=== PATIENT | male | born 1960 | race Hispanic/Latino ===

== ENCOUNTER 2018-02-18 09:45 | Outpatient (CLI) | payer OTHER | END 2018-02-18 09:46 | disposition home or self-care (01) | LOC: BICRAD 09:45 | PROVIDERS: ATTEND Internal Medicine | DX: R68.81 Early satiety (principal) | CPT/HCPCS: 74018 ==

== ENCOUNTER 2018-02-21 11:47 | Inpatient (IN) | payer SELFPAY ==
--- NOTE | 2018-02-21 12:16 | RAD ---
PORTABLE UPRIGHT FRONTAL CHEST RADIOGRAPH: Date: 02/21/18 COMPARISON: None. HISTORY: Chest pain and abdominal pain. FINDINGS: Lungs are clear. Heart and mediastinal contours unremarkable. Imaged paranasal sinuses/mastoid air ce lls are well aerated. IMPRESSION: No acute findings. POS: [facility]
[2018-02-21 12:29] LABS: #Basophils 0.1 thou/uL (0.0-0.2); #Eosinphils 0.1 thou/uL (0.0-0.7); #Lymphocytes 2.5 thou/uL (1.20-3.40); #Monocytes 0.7 thou/uL (0.11-0.59); #Neutrophils 5.3 thou/uL (1.40-6.50); %Basophils 0.7 % (0.0-1.0); %Eosinophils 1.6 % (0.0-10.0); %Lymphocytes 28.7 % (21.0-51.0); %Monocytes 8.2 % (0.0-10.0); %Neutrophils 60.8 % (42.0-75.0); Hemoglobin 12.2 g/dL (14.0-18.0); Mean Corpuscular HGB CONC 32.1 g/dL (32.0-36.0); Mean Corpuscular Hemoglobin 26.9 pg (27.0-31.0); Mean Corpuscular Volume 83.6 fL (78.0-98.0); Mean Platelet Volume 8.3 fL (7.4-10.4); Platelet Count 294 thou/uL (130-400); RBC Distribution Width 13.3 % (11.5-14.5); Red Blood Cell (RBC) Count 4.56 mill/uL (4.70-6.10); White Blood Cell (WBC) Count 8.8 thou/uL (4.8-10.8)
[2018-02-21] MEDS ORDERED: ISOVUE-370 76%-LOCM 1 ML ONE (12:44)
[2018-02-21 12:50] LABS: ALT (SGPT) 54 U/L (8-55); AST (SGOT) 57 U/L (5-34); Albumin 3.8 g/dL (3.5-5.0); Alkaline Phosphatase 207 U/L (40-150); Anion Gap 12 mmol/L (10-20); BUN (Urea Nitrogen) 18 mg/dL (8.4-25.7); Bilirubin, Total 0.4 mg/dL (0.2-1.2); CK (CPK) 116 U/L (30-200); Calc. Creatinine Clearance 0 mL/min (70-130); Carbon Dioxide 25 mmol/L (22-29); Chloride 105 mmol/L (98-107); Estimated GFR-MDRD 90; Globulin 3.4 g/dL (2.4-3.5); Glucose 84 mg/dL (70-105); Lipase 14 U/L (8-78); Potassium 4.2 mmol/L (3.5-5.1); Protein, Total 7.2 g/dL (6.0-8.3); Sodium 138 mmol/L (136-145)
[2018-02-21 12:58] LABS: CKMB 0.4 ng/mL (0-6.6); Troponin I Less than 0.010 ng/mL (< 0.028)
[2018-02-21] MEDS ORDERED: Fentanyl 100 MCG/2 ML VIAL ONE (13:10)
--- NOTE | 2018-02-21 14:42 | ULT ---
GALLBLADDER ULTRASOUND: History: Chest pain, abdominal pain. Comparison: None. Technique: Utilizing a multihertz transducer, sonographic imaging of the right upper quadrant is perf ormed in longitudinal and transverse plane. FINDINGS: Suboptimal evaluation of the pancreas. Heterogeneity of the left hepatic parenchyma may be due to hepatic steatosis or hepatocellular diseas e. Subsequent limited evaluation of the hepatic parenchyma for masses or intrahepatic biliary dilatat ion. Nevertheless, there do appear to be multiple tympanic masses. Shoe Sprayer left lobe hepatic m ass measures 5.3 x 12.3 x 3.1 cm. A mass in the right hepatic lobe measures 6.4 x 4.3 x 4.5 cm. Right hepatic lobe measures 18.2 cm. Main portal vein is patent with appropriate direction of flow. Suboptimal evaluation of common bile duct. No sonographic evidence of cholelithiasis, gallbladder wall thickening or pericholecystic fluid. Nega tive Alarcon's sign. Limited evaluation of the right kidney. Grossly, no hydronephrosis. There is right renal cortical thi nning. Right kidney measures 4.9 x 6.1 x 7.8 cm. IMPRESSION: Multiple hepatic masses. Better interrogation with a liver mass protocol CT is recommended. POS: [facility]
--- NOTE | 2018-02-21 15:28 | CT ---
ABDOMEN CT WITH CONTRAST PELVIC CT WITH CONTRAST: Date: 02/21/18 HISTORY: Abdominal pain. COMPARISON: None. TECHNIQUE: Abdomen and pelvic CT performed with IV contrast. Enteric contrast not administered. Coronal reformat yoly images are submitted for interpretation. FINDINGS: ABDOMEN CT: Lung bases do not demonstrate any masses. Heart size is normal. Visualized aorta is unremarkable. Portal vein is patent. The spleen, pancreas, and adrenal glands are unremarkable. Symmetric enhancement of the kidneys. Bilaterally, no obstructive uropathy. There are multiple necrotic masses throughout the hepatic parenchyma. Left hepatic lobe mass measurin g 4.1 x 4.5 cm and a right hepatic lobe mass measuring 5.2 x 3.7 cm noted. Additional multifocal mass es are identified. There is no gastrohepatic, retrocrural, or periportal lymphadenopathy. Limited evaluation of the alimentary canal due to lack of oral contrast. Gastric mucosa, duodenum, an d small bowel loops are unremarkable. Ileocecal junction is normal. Appendix is difficult to apprecia te. No inflammation of the cecal apex. There is circumferential mucosal thickening involving the mid transverse colon. There is mild induration of the adjacent fat. There are enlarged adjacent mesenteri c lymph nodes. Physician President lymph node in the mesentery measures 0.8 x 0[address]: No mass, lymphadenopathy, free air, or free fluid. No lytic or blastic lesions. IMPRESSION: 1. Multifocal hepatic masses, worrisome for metastasis until proven otherwise. 2. 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 The re is induration of the adjacent fat with lymphadenopathy suggestion metastatic disease. POS: [facility]
--- NOTE | 2018-02-21 15:57 | PDOC.FPRHP ---
- History of Present Illness Chief Complaint: Chest pain and stomach pain History of Present Illness: 57 yo M with no medical hx here with complaint of chest pain and stomach pain. Regarding the chest pain he states that it started about 1 day ago. He states that the pain is in the center of his chest and sharp in nature. He denies radiation of the pain. He also denies SOB, nausea/vomiting, headache, and peripheral numbness/tingling. Regarding abdominal pain he notes 1-2 months of diffuse aching without radiation. He denies changes in bowel habit, early satiety, bloody or black stools, constipation, or diarrhea. He denies family history of cancers. He has never been screened for colon cancer. ED Course: In the ED an abdominal CT was completed and read as likely apple core lesion in transverse colon with possible metastatic lesions in the liver. Troponin was negative and EKG was not concerning ACS. - Allergies/Adverse Reactions Allergies Allergy/AdvReac Type Severity Reaction Status Date / Time No Known Allergies Allergy Verified 02/21/18 18:14 - Home Medications Medication Instructions Recorded Confirmed Type No Known [No Known] 02/21/18 02/21/18 History - History PMHx: None PSHx: None FHx: None Social: Denies etoh, tobacco, recreational drug use - Review of Systems General: denies: fever/chills, weight/appetite/sleep changes Eyes: denies: vision changes ENT: denies: nasal congestion, rhinorrhea Respiratory: denies: cough, congestion, shortness of breath Cardiovascular: reports: chest pain (Substernal). denies: edema Gastrointestinal: reports: abdominal pain (epigastric for 1 month duration). denies: nausea, vomiting, diarrhea, constipation Genitourinary: denies: incontinence Skin: denies: rashes, lesions, jaundice Musculoskeletal: denies: pain, tenderness Neurological: denies: numbness, syncope Psychological: denies: anxiety, depression - Vital signs BP: 118/75 HR: 77 RR: 22 Tmax: 98.0 Pox: 95% on RA Wt: 79 kg - Physical Exam Constitutional: NAD, awake, alert and oriented HEENT: PERRLA, grossly normal vision, grossly normal hearing Neck: FROM, trachea midline Chest: no-tender to palpation Heart: RRR, normal S1/S2, no murmurs/rubs/gallops Lungs: CTAB, no respiratory distress, no wheezing Abdomen: soft, bowel sounds present, no masses/distention -Abdomen: diffusely TTP Musculoskeletal: normal structure, normal tone Neurological: no focal deficit, CN II-XII intact Skin: no rash/lesions, good turgor Heme/Lymphatic: no unusual bruising or bleeding Psychiatric: normal mood and affect FMR H&P: Results - Labs Result Diagrams: 02/23/18 04:12 02/23/18 04:12 Lab results: WBC 8.8 thou/uL (4.8-10.8) 02/21/18 12:17 Hgb 12.2 g/dL (14.0-18.0) L 02/21/18 12:17 Hct 38.1 % (42.0-52.0) L 02/21/18 12:17 MCV 83.6 fL (78.0-98.0) 02/21/18 12:17 Plt Count 294 thou/uL (130-400) 02/21/18 12:17 Neutrophils % 60.8 % (42.0-75.0) 02/21/18 12:17 Sodium 138 mmol/L (136-145) 02/21/18 12:17 Potassium 4.2 mmol/L (3.5-5.1) 02/21/18 12:17 Chloride 105 mmol/L (98-107) 02/21/18 12:17 Carbon Dioxide 25 mmol/L (22-29) 02/21/18 12:17 BUN 18 mg/dL (8.4-25.7) 02/21/18 12:17 Creatinine 0.87 mg/dL (0.6-1.3) 02/21/18 12:17 Glucose 84 mg/dL (70-105) 02/21/18 12:17 Calcium 9.0 mg/dL (7.8-10.44) 02/21/18 12:17 Total Bilirubin 0.4 mg/dL (0.2-1.2) 02/21/18 12:17 AST 57 U/L (5-34) H 02/21/18 12:17 ALT 54 U/L (8-55) 02/21/18 12:17 Alkaline Phosphatase 207 U/L (40-150) H 02/21/18 12:17 Creatine Kinase 116 U/L (30-200) 02/21/18 12:17 CK-MB (CK-2) 0.4 ng/mL (0-6.6) 02/21/18 12:17 Serum Total Protein 7.2 g/dL (6.0-8.3) 02/21/18 12:17 Albumin 3.8 g/dL (3.5-5.0) 02/21/18 12:17 Lipase 14 U/L (8-78) 02/21/18 12:17 - EKG Interpretation EKG: NSR. Rate 74. No changes in ST or T wave - Radiology Interpretation CT scan - abdomen Status: report reviewed by me (1. Multifocal hepatic masses, worrisome for metastasis until proven otherwise. 2. 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 The re is induration of the adjacent fat with lymphadenopathy suggestion metastatic disease) US - abdomen Status: report reviewed by me (Multiple hepatic masses. Better interrogation with a liver mass protocol CT is recommended.) FMR H&P: A/P - Problem List (1) Atypical chest pain Current Visit: Yes Status: Resolved Priority: High Code(s): R07.89 - OTHER CHEST PAIN (2) Colonic mass Current Visit: Yes Status: Acute Priority: High Code(s): K63.9 - DISEASE OF INTESTINE, UNSPECIFIED (3) Liver metastasis Current Visit: Yes Status: Acute Priority: High Code(s): C78.7 - SECONDARY MALIG NEOPLASM OF LIVER AND INTRAHEPATIC BILE DUCT (4) Normocytic anemia Current Visit: Yes Status: Acute Priority: Medium Code(s): D64.9 - ANEMIA , UNSPECIFIED - Plan Atypical chest pain - This unlikely to be related to cardiac ischemia and more likely to be referred from abdomen - trend trops x3, repeat EKG - monitor on tele - HEART score 2 Colonic mass - likely to be transverse colon cancer - Will consult GI Hepatic mass - likely mets from primary colon cancer - Consult GI as above Normocytic anemia - likely 2/2 losses from colon cancer - FOBT - trend CBC in am PPx: lovenox Diet NPO at midnight Code Full Dispo: Guarded, pt likely has metastatic disease. Length of stay likely 1-2 pending GI recommendation FMR H&P: Upper Level - Pertinent history 57 yo M with no known pmhx p/w chest and abdominal pains. Regarding the chest pain, he states that it started about 1 day ago. Describes the pain as central and sharp without radiation. No associated SOB, N/V, diaphoresis, or worsening with exertion. Describes abdominal pain as 1-2 months of diffuse aching without radiation. Denies early satiety, bloody or black stools, constipation, or diarrhea. Denies family history of cancer. He has never been screened for colon cancer. In the ED, an abdominal CT was completed and read as likely apple core lesion in the transverse colon with possible metastatic lesions in the liver. Troponin was negative, and EKG had no ST elevations/depression or T wave inversions. - Pertinent findings PE: - Plan Date/Time: 02/21/18 0992 I, Paco Zee MD, have evaluated this patient and agree with findings/plan as outlined by gallery intern resident. Pertinent changes/additions are listed here. 1) Atypical chest pain: obs to telemetry for cardiac monitoring overnight; more likely referred pain from abdomen. Trending trops and r/p EKG in AM. HEART score 2. Risk stratification labs. Consider stress test in AM. Attempt symptomatic relief with PPI or GI cocktail. 2) Colonic mass, suspect transverse colon cancer. GI consulted to obtain tissue biopsy. Will make NPO at midnight. 3) Hepatic mass: likely metastatic disease, LFTs mildly elevated. 4) Normocytic anemia: likely 2/2 chronic blood loss from #2. Monitor CBC. Attending Addendum - Attending Addendum Date/Time: 02/21/18 3251 I personally evaluated the patient and discussed the management with Dr. Zee and Dr. Orr I agree with the History, Examination, Assessment and Plan documented above with any addition or exceptions noted below. 57 yo male with no past medical history admitted for evaluation of colon cancer and rule out ACS. Patient denies symptoms related to colon cancer other than abdominal pain. Chest pain is atypical. Will trend CE and EKG. Consider stress as indicated based on clinical course. Will cancer present rule out other etiologies. Will contact GI for scope and tissue biopsy. CM consulted. Kerline
[2018-02-21] MEDS ORDERED: Nitroglycerin 0.4 MG TAB (25 Tab Bottle) PO PRN (16:24)
[2018-02-21 16:55] LABS: Troponin I Less than 0.010 ng/mL (< 0.028)
[2018-02-21] MEDS ORDERED: Pantoprazole 40 MG VIAL IVP SCH (18:30)
[2018-02-21] MEDS ORDERED: Lidocaine 2% Viscous Solution 10 ML, Aluminum & Magnesium Hydroxide 30 ML SSW SCH (19:15)
[2018-02-21 20:20] LABS: Troponin I Less than 0.010 ng/mL (< 0.028)
[2018-02-21] MEDS ORDERED: GoLYTELY 4,000 ml Bottle PO SCH (21:00)
--- NOTE | 2018-02-22 02:23 | CON ---
DATE OF CONSULTATION: 02/21/2018 HISTORY OF PRESENT ILLNESS: The patient is a 57-year-old gentleman with no significant past medical history, presenting with complaints of chest pain and abdominal pain. He states that he was in his usual state of health until approximately 1 month ago when he started having increased midepi gastric abdominal pain. He states the pain was characterized as sharp, stabbing type pain, intermitt ent, would radiate to the periumbilical region and would reach a severity of 8/10. He did not endors e any clear alleviating or exacerbating factors. However, he did take peppermint oil that was prescr ibed to his daughter with mild relief in his symptoms until the worsening of this abdominal pain alejo magallanes brought him for further evaluation. He also complains of chest pain located in his mid chest als o characterized as sharp in nature without radiation of his pain. With the occurrence of this chest pain, it did cause some mild exacerbation of his midepigastric/periumbilical abdominal pain. However , he currently denies any nausea, vomiting, fevers, chills, odynophagia, dysphagia, weight loss, diar parmjit, constipation, inability to pass flatus or GI bleeding. REVIEW OF SYSTEMS: A 10-category review of systems was obtained with all responses negative except f or the pertinent positives as listed in the HPI. PAST MEDICAL HISTORY: None. PAST SURGICAL HISTORY: None. FAMILY HISTORY: Denies any GI malignancies. No history of colonic polyps or masses. SOCIAL HISTORY: Denies any tobacco, alcohol or illicit drug use. OUTPATIENT MEDICATIONS: None. ALLERGIES: No known drug allergies. PHYSICAL EXAMINATION: VITAL SIGNS: Temperature 98.7, pulse 81, blood pressure 121/71, respiratory rate 16, satting 96% on room air. GENERAL: The patient is lying in bed in no acute distress. Alert and oriented x4. NECK: Supple. No JVD noted. CARDIOVASCULAR: Regular rate and rhythm with no discernible murmurs, gallops or rubs. RESPIRATORY: Clear to auscultation bilaterally with no discernible wheezes or rales. ABDOMEN: Normoactive bowel sounds, soft, nondistended. Tenderness to palpation in the midepigastric and left upper quadrant. EXTREMITIES: No cyanosis, clubbing or edema. LABORATORY DATA: CBC with a white blood cell count of 8.8, hemoglobin 12.2, hematocrit 38.1, platele ts 294. Chemistry with a sodium 138, potassium 4.2, chloride 105, CO2 of 25, BUN 18, creatinine 0.87 , glucose 84, AST 57, ALT 54, alkaline phosphatase 207, total bilirubin 0.4, albumin 3.8, lipase 14. IMAGING DATA: Right upper quadrant ultrasound obtained on 02/21/2018 showed multiple hepatic masses that were unable to be further characterized. However, a CT of the abdomen and pelvis was obtained o n 02/21/2018, which showed multiple necrotic masses throughout the hepatic parenchyma with a left lob e mass measuring approximately 4.1 x 4.5 cm as well as a right lobe mass measuring 5.2 x 3.7 cm. The re is also circumferential mucosal thickening seen within the mid transverse colon as well as enlarge d adjacent lymph nodes in this region. ASSESSMENT AND PLAN: The patient is a 57-year-old male with no significant past medical history, pre senting with abdominal pain and imaging concerning for metastatic disease. Metastatic disease: The patient is presenting with a 1-2 month history of worsening abdominal pain c haracterized as sharp, stabbing type sensation in the periumbilical region which then radiate to the midepigastric region and reach a severity of approximately 8/10. This was alleviated somewhat with t he use of peppermint oil/IBgard, but he experienced worsening of the pain despite this additional reg imen. With admission today, he was noted on multiple imaging modalities as having multiple hepatic m asses within both the right and left hepatic lobes as well as a possible apple core lesion within the mid transverse colon concerning for a colonic primary malignancy. Given the possible metastatic dis ease within the liver, a colon primary is most likely given the venous blood outlet from the colon is extending into the liver. RECOMMENDATIONS: 1. We would continue to trend H&H and transfuse as necessary to maintain an H&H of 7/21. 2. We would place the patient on clear liquid diet in anticipation for procedure tomorrow. 3. We will plan for colonoscopy evaluation tomorrow for further characterization of the mid transver se colon lesion and possible malignancy contributing to metastatic disease of the liver. 4. We would obtain an alpha fetoprotein for the possibility of possible hepatic primary lesion. 5. Further recommendations to follow endoscopic evaluation. We will continue to follow. Please call with any questions.
[2018-02-22 05:24] LABS: #Eosinphils 0.2 thou/uL (0.0-0.7); #Lymphocytes 2.2 thou/uL (1.20-3.40); #Monocytes 0.9 thou/uL (0.11-0.59); #Neutrophils 6.2 thou/uL (1.40-6.50); %Basophils 0.5 % (0.0-1.0); %Eosinophils 2.1 % (0.0-10.0); %Lymphocytes 23.4 % (21.0-51.0); %Monocytes 9.8 % (0.0-10.0); %Neutrophils 64.2 % (42.0-75.0); Hemoglobin 11.5 g/dL (14.0-18.0); Mean Corpuscular HGB CONC 32.6 g/dL (32.0-36.0); Mean Corpuscular Hemoglobin 27.2 pg (27.0-31.0); Mean Corpuscular Volume 83.2 fL (78.0-98.0); Mean Platelet Volume 8.5 fL (7.4-10.4); Platelet Count 255 thou/uL (130-400); RBC Distribution Width 13.2 % (11.5-14.5); Red Blood Cell (RBC) Count 4.24 mill/uL (4.70-6.10); White Blood Cell (WBC) Count 9.6 thou/uL (4.8-10.8)
[2018-02-22 06:06] LABS: Anion Gap 13 mmol/L (10-20); BUN (Urea Nitrogen) 15 mg/dL (8.4-25.7); Calc. Creatinine Clearance 108 mL/min (70-130); Calcium 8.6 mg/dL (7.8-10.44); Carbon Dioxide 25 mmol/L (22-29); Cardiac Risk 6.5 (Less than 4.5); Chloride 104 mmol/L (98-107); Cholesterol 221 mg/dl (< 200 Desired); Estimated GFR-MDRD Greater than 90; Glucose 102 mg/dL (70-105); HDL Cholesterol 34 mg/dL (>60 Neg Risk); LDL Cholesterol, Calculated 168 mg/dL; Potassium 4.1 mmol/L (3.5-5.1); Sodium 138 mmol/L (136-145); Triglycerides 95 mg/dL (Less than 150)
--- NOTE | 2018-02-22 07:45 | PDOC.FM ---
- Subjective Subjective: 57 yo M admitted yesterday with atypical chest pain and a new diagnosis of colonic and hepatic masses. Pt states that today he has no more chest pain, but has continued abdominal pain. This pain is stabbing in nature, however is no worse than previous pain. He denies any new complaints today. He denies any other symptoms. There were no acute events over night. - Objective MAR Reviewed: Yes Vital Signs & Weight: Vital Signs (12 hours) Temp Pulse Resp BP Pulse Ox 02/22/18 04:45 98.4 F 82 16 121/70 93 L 02/21/18 23:17 98.2 F 79 16 136/82 95 02/21/18 19:55 98.7 F 81 16 Weight Weight 76.929 kg I&O: 02/21/18 02/22/18 02/23/18 06:59 06:59 06:59 Intake Total 3580 Output Total 4 Balance 3576 Result Diagrams: 02/22/18 04:41 02/22/18 04:41 <Jose Cespedes - Last Filed: 02/22/18 07:41> - Objective Vital Signs & Weight: Vital Signs (12 hours) Temp Pulse Resp BP Pulse Ox 02/22/18 08:00 98.4 F 82 16 02/22/18 07:13 98.7 F 78 16 113/65 93 L 02/22/18 04:45 98.4 F 82 16 121/70 93 L 02/21/18 23:17 98.2 F 79 16 136/82 95 Weight Weight 76.929 kg I&O: 02/21/18 02/22/18 02/23/18 06:59 06:59 06:59 Intake Total 3580 Output Total 4 Balance 3576 Result Diagrams: 02/22/18 04:41 02/22/18 04:41 <Bakari Bain - Last Filed: 02/22/18 11:08> Phys Exam - Physical Examination Constitutional: NAD HEENT: moist MMs, sclera anicteric Neck: full ROM Respiratory: clear to auscultation bilateral Cardiovascular: RRR, no significant murmur Gastrointestinal: soft, no distention, positive bowel sounds mildly TTP worst at epigastrum Musculoskeletal: no edema, pulses present Neurological: non-focal, moves all 4 limbs Psychiatric: normal affect, A&O x 3 Skin: no rash, normal turgor <Jose Cespedes - Last Filed: 02/22/18 07:41> Dx/Plan (1) Atypical chest pain Code(s): R07.89 - OTHER CHEST PAIN Status: Acute (2) Colonic mass Code(s): K63.9 - DISEASE OF INTESTINE, UNSPECIFIED Status: Acute (3) Liver metastasis Code(s): C78.7 - SECONDARY MALIG NEOPLASM OF LIVER AND INTRAHEPATIC BILE DUCT Status: Acute (4) Normocytic anemia Code(s): D64.9 - ANEMIA, UNSPECIFIED Status: Acute - Plan Plan: Colonic mass - likely to be transverse colon cancer - Pt going for colonoscopy today - AFP pending - GI following case Atypical chest pain - Most likely referred from abdomen - trops negative x3 - HEART score 2 Hepatic mass - likely mets from primary colon cancer - Consult GI as above Normocytic anemia - likely 2/2 losses from colon cancer - FOBT positive - trend CBC Dispo: stable, awaiting tissue ID of mass. LOS likely less than 2 days <Jose Cespedes - Last Filed: 02/22/18 07:41> Attending Addendum - Attending Addendum Date/Time: 02/22/18 1105 I personally evaluated the patient and discussed the management with Dr. Cespedes I agree with the History, Examination, Assessment and Plan documented above with any addition or exceptions noted below. Symptomatic colon mass with presumed liver metatasis. Patient for colonoscopy later today will await finding and consider pallative measures measures consider surgical consultation. <Bakari Bain - Last Filed: 02/22/18 11:08>
[2018-02-22] MEDS: Pantoprazole 40 MG VIAL IVP SCH (10:00)
[2018-02-22] MEDS: Enoxaparin Sodium 40 MG/0.4 ML SYRINGE SC SCH (12:04)
[2018-02-22] MEDS ORDERED: Lidocaine 1% PF 5 ML VIAL ONE (13:25)
[2018-02-22] MEDS ORDERED: PROPOFOL 200 MG/20 ML VIAL ONE (13:25)
[2018-02-22] MEDS ORDERED: Ondansetron HCl/PF 4 MG/2 ML Vial IVP PRN (16:07)
[2018-02-22] MEDS ORDERED: Promethazine HCl 25 MG/ML VIAL IM PRN (16:07)
[2018-02-22] MEDS ORDERED: Promethazine HCl 25 MG/ML VIAL SLOW IVP PRN (16:07)
[2018-02-22] MEDS: Ibuprofen 600 MG TAB PO PRN (19:24)
--- NOTE | 2018-02-22 22:44 | OP ---
PREOPERATIVE DIAGNOSIS: Abnormal CT scan. PROCEDURE IN DETAIL: After informed consent was obtained, patient placed on left lateral decubitus p osition. Anesthesia was administered per Anesthesia Department. Forward-viewing endoscope was inser yoly into the rectum after perianal inspection and rectal exam were normal and passed to the transvers e colon, where a large circumferential mass was noted. This mass was closely to be near obstructing; however, the scope was able to be passed through and passed to the cecum. The cecum, ileocecal valv e, and appendiceal orifice were normal. The prep was good. The ascending remainder of the transvers e was normal. Biopsies were taken off the mass. The descending, sigmoid, and rectum were normal. ASSESSMENT: Large circumferential transverse colon mass - likely malignant, status post biopsy. RECOMMENDATIONS: 1. CEA. 2. Oncology input.
[2018-02-23 04:33] LABS: #Eosinphils 0.2 thou/uL (0.0-0.7); #Lymphocytes 2.5 thou/uL (1.20-3.40); #Monocytes 0.9 thou/uL (0.11-0.59); #Neutrophils 4.8 thou/uL (1.40-6.50); %Basophils 0.5 % (0.0-1.0); %Eosinophils 2.5 % (0.0-10.0); %Lymphocytes 29.8 % (21.0-51.0); %Monocytes 10.6 % (0.0-10.0); %Neutrophils 56.6 % (42.0-75.0); Hemoglobin 12.1 g/dL (14.0-18.0); Mean Corpuscular HGB CONC 32.4 g/dL (32.0-36.0); Mean Corpuscular Hemoglobin 27.3 pg (27.0-31.0); Mean Corpuscular Volume 84.2 fL (78.0-98.0); Mean Platelet Volume 8.5 fL (7.4-10.4); Platelet Count 255 thou/uL (130-400); RBC Distribution Width 13.2 % (11.5-14.5); Red Blood Cell (RBC) Count 4.44 mill/uL (4.70-6.10); White Blood Cell (WBC) Count 8.5 thou/uL (4.8-10.8)
[2018-02-23 04:45] LABS: ALT (SGPT) 45 U/L (8-55); AST (SGOT) 52 U/L (5-34); Albumin 3.5 g/dL (3.5-5.0); Alkaline Phosphatase 197 U/L (40-150); Anion Gap 11 mmol/L (10-20); BUN (Urea Nitrogen) 13 mg/dL (8.4-25.7); Bilirubin, Total 0.5 mg/dL (0.2-1.2); Calc. Creatinine Clearance 101 mL/min (70-130); Calcium 9.1 mg/dL (7.8-10.44); Carbon Dioxide 28 mmol/L (22-29); Chloride 103 mmol/L (98-107); Estimated GFR-MDRD Greater than 90; Globulin 3.2 g/dL (2.4-3.5); Glucose 100 mg/dL (70-105); Potassium 4.1 mmol/L (3.5-5.1); Protein, Total 6.7 g/dL (6.0-8.3); Sodium 138 mmol/L (136-145)
--- NOTE | 2018-02-23 08:18 | PDOC.FM ---
- Subjective Subjective: This is a 57 yo M admitted for atypical chest pain, no resolved, and likely metastatic colon cancer. Pt is s/p colonoscopy w/biopsy yesterday. Today he denies any new symptoms, but states that his abdominal pain persists. There were no acute events over night. He denies new or worsening pain, constipation, or bloody stool - Objective MAR Reviewed: Yes Vital Signs & Weight: Vital Signs (12 hours) Temp Pulse Resp BP BP Pulse Ox 02/23/18 07:05 98.3 F 70 16 106/68 93 L 02/23/18 04:05 98.2 F 69 18 113/71 95 Weight Weight 76.929 kg I&O: 02/22/18 02/23/18 02/24/18 06:59 06:59 06:59 Intake Total 3580 720 Output Total 4 400 Balance 3576 320 Result Diagrams: 02/23/18 04:12 02/23/18 04:12 <Jose Cespedes - Last Filed: 02/23/18 08:16> - Objective Vital Signs & Weight: Vital Signs (12 hours) Temp Pulse Resp BP BP Pulse Ox 02/23/18 08:15 98.3 F 70 16 02/23/18 07:05 98.3 F 70 16 106/68 93 L 02/23/18 04:05 98.2 F 69 18 113/71 95 Weight Weight 76.929 kg I&O: 02/22/18 02/23/18 02/24/18 06:59 06:59 06:59 Intake Total 3580 720 Output Total 4 400 Balance 3576 320 Result Diagrams: 02/23/18 04:12 02/23/18 04:12 <Bakari Bain - Last Filed: 02/23/18 11:20> Phys Exam - Physical Examination Constitutional: NAD HEENT: moist MMs, sclera anicteric Neck: no JVD, full ROM Respiratory: clear to auscultation bilateral Cardiovascular: RRR, no significant murmur, no rub Gastrointestinal: soft, no distention, positive bowel sounds mild diffuse TTP. No palpable mass Musculoskeletal: no edema Neurological: non-focal, normal sensation, moves all 4 limbs Lymphatic: no nodes Psychiatric: normal affect, A&O x 3 Skin: no rash, normal turgor <Jose Cespedes - Last Filed: 02/23/18 08:16> Dx/Plan (1) Colonic mass Code(s): K63.9 - DISEASE OF INTESTINE, UNSPECIFIED Status: Acute (2) Liver metastasis Code(s): C78.7 - SECONDARY MALIG NEOPLASM OF LIVER AND INTRAHEPATIC BILE DUCT Status: Acute (3) Normocytic anemia Code(s): D64.9 - ANEMIA, UNSPECIFIED Status: Acute (4) Atypical chest pain Code(s): R07.89 - OTHER CHEST PAIN Status: Resolved - Plan Plan: Colonic mass - likely to be transverse colon cancer w/mets to liver - colonoscopy performed on 02/23, biopsy results are pending. - AFP WNL (2.2), CEA is markedly elevated at 255 - GI following case - Onc has been consulted and should see pt today to discuss options and plan going forward Atypical chest pain, Resolved - Most likely referred from abdomen - trops negative x3 - HEART score 2 Hepatic mass - likely mets from primary colon cancer - GI/Onc consulted as above Normocytic anemia - stable Hb and vitals - likely 2/2 losses from colon cancer - FOBT positive Dispo: stable, awaiting tissue ID of mass and discussion with onc. Likely ready for dc today pending onc recommendation. <Jose Cespedes - Last Filed: 02/23/18 08:16> Attending Addendum - Attending Addendum Date/Time: 02/23/18 1117 I personally evaluated the patient and discussed the management with Dr. Cespedes I agree with the History, Examination, Assessment and Plan documented above with any addition or exceptions noted below.Large contingent of Family at bedside with multiple concerns for expidited patient care. Reviewed hospital course to present with plans for Oncology consultation today. <Bakari Bain - Last Filed: 02/23/18 11:20>
[2018-02-23] MEDS: Ibuprofen 600 MG TAB PO PRN (09:04)
[2018-02-23] MEDS: Pantoprazole 40 MG VIAL IVP SCH (09:04)
[2018-02-23] MEDS: Enoxaparin Sodium 40 MG/0.4 ML SYRINGE SC SCH (09:05)
[2018-02-23] MEDS ORDERED: Scopolamine 1.5 mg/72 hour Patch TOP SCH (13:15)
[2018-02-23] MEDS ORDERED: Sodium Chloride 0.9% 1,000 ML IV SCH (13:15)
[2018-02-23] MEDS ORDERED: MEROPENEM 1 GM/50 ML 1 GM in Premix Bag 1 BAG IVPB SCH (13:15)
[2018-02-23] MEDS ORDERED: Bupivacaine HCl 0.5%/Epinephrine 1:200,000/PF 30 ml Vial ONE ×2 (13:33→16:03)
[2018-02-23] MEDS ORDERED: Ondansetron HCl/PF 4 MG/2 ML Vial ONE (14:29)
[2018-02-23] MEDS ORDERED: PROPOFOL 200 MG/20 ML VIAL ONE (14:29)
[2018-02-23] MEDS ORDERED: Lidocaine 1% PF 5 ML VIAL ONE (14:29)
[2018-02-23] MEDS ORDERED: Glycopyrrolate 0.2 MG/ML 5 ML SYRINGE ONE (14:29)
[2018-02-23] MEDS ORDERED: Scopolamine 1.5 mg/72 hour Patch ONE (14:35)
[2018-02-23] MEDS ORDERED: Fentanyl 100 MCG/2 ML VIAL ONE ×3 (14:53→20:29)
[2018-02-23] MEDS ORDERED: Dexamethasone 4 mg/ml Vial ONE (14:53)
[2018-02-23] MEDS ORDERED: Midazolam HCl 2 mg/2 ml Vial ONE ×2 (14:53→16:33)
--- NOTE | 2018-02-23 15:55 | HP ---
HISTORY OF PRESENT ILLNESS: Franco Ng is a 57-year-old male who lives in [place] visiting his daugh rachel locally. The patient speaks Polish only. 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 He complains of abdominal bloating. He was admitted with a CAT scan of the abdomen and pel vis on 02/21/2018 revealing multiple hepatic metastases and a transverse colon lesion in the mid fernandez sverse. The patient underwent colonoscopy on 02/22/[address] Domingo Vargas. The patient was found to have a large circumferential transverse colon mass biopsied. The scope was able to be passed throug h the mass to the cecum, although it was closely to be near obstructing. Oncology has seen the patie nt and suggested he might benefit from a palliative resection. Plan today is to perform a laparoscop ic colon resection and anastomosis. The patient understands this is not curative. He understands ri sks of infection, bleeding, reoperation and consents. He understands risk of colonic anastomotic ilana kage. We will also plan placement of MediPort during the same anesthesia. CEA level was 255. Basic metabolic profile essentially normal. White count 8 and hemoglobin 12. ALLERGIES: None. TOBACCO: None. ALCOHOL: None. MEDICATIONS: None. PAST SURGICAL HISTORY: Noncontributory. PAST MEDICAL HISTORY: Noncontributory. REVIEW OF SYSTEMS: Ten point noncontributory. FAMILY HISTORY: No history of colon cancer or other significant problems. Pathology pending. ASSESSMENT AND PLAN: 1. 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 Vargas. The patient has been admitted to [facility] from the emergency room. Plan is to place a MediPort and a laparoscopic colon resection for palliative reasons. Risk of infection, bleeding, reoperation expla ined and he consents and plan this today. 2. Elevated CA level is 256.
[2018-02-23] MEDS ORDERED: Lidocaine 2% 10 ML INJ ONE (16:04)
--- NOTE | 2018-02-23 17:23 | PRG ---
DATE OF SERVICE: 02/23/2018 SUBJECTIVE: The patient was not available for interview at the time of evaluation due to being taken to the operating room for debulking surgery related to the near obstructing colonic mass in the mid transverse colon. Per chart review, the patient did continue to have some mild abdominal pain overnight, but was subsequently taken to the OR for this particular procedure. OBJECTIVE: VITAL SIGNS: Temperature 98.4, pulse 77, blood pressure 117/68, respiratory rate 20, satting 96% on room air. Remainder of the physical exam could not be performed due to the patient not being in the room. LABORATORY DATA: CBC with a white blood cell count of 8.5, hemoglobin 12.1, hematocrit 37.4, platelets 255. Chemistry with a sodium of 138, potassium 4.1, chloride 103, CO2 28, BUN 13, creatinine 0.86, glucose 100, AST 52, ALT 45, alkaline phosphatase 157, total bilirubin 0.5. Alpha fetoprotein 2.2. CEA 255. IMAGING DATA: Colonoscopy performed on 02/22/2018 showed a near obstructive mass within the mid transverse colon and was able to be traversed with some difficulty. The remainder of the colonoscopy was normal. Multiple biopsies were taken from the mass for further evaluation, but with a high likelihood of malignant neoplastic. ASSESSMENT AND PLAN: The patient is a 57-year-old male with no significant past medical history presenting with complaints of abdominal pain and imaging and colonoscopy consistent with metastatic disease with colonic primary. Colonic malignancy: The patient is presenting with a 1-2 month history of worsening abdominal pain characterized as sharp, stabbing type sensation in the periumbilical region which then radiated to the mid epigastric region and was somewhat alleviated with taking peppermint oil; however, on admission, he was noted to have multiple hepatic masses within both right and left hepatic lobes as well as an apple core lesion within the mid transverse colon concerning for malignancy. Colonoscopy performed on 02/22/2018 confirmed the presence of a large, near obstructing mass within the mid transverse colon consistent with colonic primary malignancy. Biopsies are still pending at this time, but there is a very high likelihood of malignant process with metastatic disease to the liver. RECOMMENDATIONS: 1. Agree with consultation of Oncology services for recommendations regarding further future plan of care. 2. Agree with the debulking surgery for a near obstructing mass. 3. Further endoscopic evaluation is not indicated at this time. We will sign off at this time. Please call with any additional questions. MTDD
[2018-02-23] MEDS ORDERED: SUGAMMADEX SODIUM 200 MG/2 ML VIAL ONE (19:57)
[2018-02-23] MEDS ORDERED: Promethazine HCl 25 MG/ML VIAL SLOW IVP PRN (20:06)
[2018-02-23] MEDS ORDERED: Promethazine HCl 25 MG/ML VIAL IM PRN (20:06)
[2018-02-23] MEDS ORDERED: Ondansetron HCl/PF 4 MG/2 ML Vial IVP PRN (20:06)
--- NOTE | 2018-02-23 22:20 | RAD ---
RADIOGRAPH CHEST 1 VIEW: Date: 02/23/18 Time: 7:40 p.m. HISTORY: 57-year-old male who underwent partial colon resection today. Status post Mediport placement. COMPARISON: 02/21/18. FINDINGS: There is a new left subclavian vascular access port catheter with distal tip overlying the lower port ion of the right atrium. No pneumothorax is identified. There is a new finding of free air abutting t he undersurface of the right hemidiaphragm, and at midline and to the left of midline. There is anoth er new finding of opacification of the base of the left lower lobe, presumably representing atelectas is. IMPRESSION: 1. Left subclavian implantable vascular access port placement without evidence of pneumothorax. 2. Pneumoperitoneum, explained by history of abdominal surgery today. 3. Left lower lobe air space density is probably atelectasis, although aspiration can also have this appearance. MYRNA [] POS: NATA
[2018-02-23] MEDS: Lactated Ringer's 1,000 ML IV SCH (23:08)
[2018-02-23] MEDS: Ketorolac Tromethamine 30 MG/ML VIAL IVP SCH (23:09)
[2018-02-23] MEDS: Acetaminophen 1,000 MG in Premix Bag 1 BAG IVPB SCH (23:10)
[2018-02-24] MEDS: Ketorolac Tromethamine 30 MG/ML VIAL IVP SCH ×5 (00:18→22:56)
[2018-02-24] MEDS: Acetaminophen 1,000 MG in Premix Bag 1 BAG IVPB SCH ×4 (00:19→11:14)
[2018-02-24] MEDS: Ibuprofen 600 MG TAB PO PRN ×2 (00:57→08:37)
[2018-02-24] MEDS: Lactated Ringer's 1,000 ML IV SCH ×3 (01:30→17:26)
--- NOTE | 2018-02-24 02:41 | OP ---
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 PROCEDURE: Laparoscopic mobilization of the right colon, splenic flexure with laparoscopic transvers e colectomy and primary anastomosis staple. Left subclavian vein MediPort, fluoroscopy used. SURGEON: Lefty Lai M.D. ANESTHESIA: General. ESTIMATED BLOOD LOSS: 100 mL, Tap block used. PROCEDURE: The patient was taken to the operating room where under general anesthesia, chest and abd omen clipped of hair, prepared with ChloraPrep, draped in routine fashion. Local anesthetic infiltra yoly into skin and subcutaneous tissue about the operative site for MediPort placement. Infraclavicul ar approach to left made to cannulate the left subclavian vein through a J-wire, enlarged and skin wa s sharply through skin and subcutaneous tissue, creating a pocket for the MediPort. Dilator and pull -away sheath placed over the J-wire and subclavian vein. J wire and dilator removed. Catheter place d through pull-away sheath. Pull-away sheath removed. Fluoroscopically, the catheter tip placed in optimal position and catheter tailored to length and connected to the MediPort, placed in subcutaneou s pocket, secured with 2 interrupted sutures of 2-0 Prolene. Subcutaneous tissues approximated with 3-0 Monocryl for skin with subcuticular 4-0 Monocryl and a heater needle used to cannulate the MediPo rt, aspirated blood and flushed with heparinized saline solution. Dermal glue applied. Attention was then turned to the abdomen. Infraumbilical incision was made. Pneumoperitoneum 250 mm Hg was obtained with the Veress needle, replacing it with a 5 port and video laparoscope inserted. B ilateral upper quadrant incision made and 5 ports placed. Incision was made in the right lower quadr ant, left lower quadrant and a 5 port placed. Another mid right abdominal incision made and a 5 port placed. The right colon was mobilized from the cecum along the peritoneal reflection up to the hepa tic flexure, which was mobilized. The gastrocolic ligament was taken down with the LigaSure mobilizi ng the omentum from the transverse colon, reflecting it cephalad. The tumor was noted to be in the m id transverse colon and ascending endoscopically had puckering of the serosa. The gastrocolic ligame nt was taken down towards the splenic flexure, which was mobilized and the left colon mobilized and t he splenic flexure and left colon reflected off Gerota's fascia laparoscopically. At this point is t he colon been entirely mobilized. An extraction incision was made between the umbilicus and xiphoid and carried through the skin and subcutaneous tissue, fascia, and the wound protector inserted. The lesion brought out through this upper midline incision and using the stapling technique, the colon ei ther side was divided with EDGAR stapler. The mesentery serially divided with a LigaSure and divided b etween Mckenzie clamps and ligated with 2-0 silk ties. This segment of the transverse colon was submitt ed to Pathology. Good hemostasis was noted. A [id number] anastomosis was created between the prox imal transverse colon. The distal transverse colon used 2 fires of the EDGAR 75 stapler. There was so me firm stool in the proximal colon due to near obstruction. Anastomosis was complete and after the second fire stapler was performed. The specimen was submitted to pathology. Staple line reinforced with Lembert sutures of 3-0 silk. Hemostasis noted. Wound irrigated and evacuated. Gloves and gown s were then changed and midline fascia closed with continuous suture of #1 PDS. Skin and subcutaneou s tissues was irrigated copiously. All skin incisions approximated with subdermal 4-0 Monocryl and D ermaGlue applied. The patient tolerated the procedure well.
[2018-02-24 05:54] LABS: Anion Gap 11 mmol/L (10-20); BUN (Urea Nitrogen) 16 mg/dL (8.4-25.7); Calc. Creatinine Clearance 108 mL/min (70-130); Calcium 8.2 mg/dL (7.8-10.44); Carbon Dioxide 26 mmol/L (22-29); Chloride 103 mmol/L (98-107); Estimated GFR-MDRD Greater than 90; Glucose 122 mg/dL (70-105); Potassium 4.3 mmol/L (3.5-5.1); Sodium 136 mmol/L (136-145)
[2018-02-24 06:28] LABS: #Monocytes 0.7 thou/uL (0.11-0.59); #Neutrophils 8.2 thou/uL (1.40-6.50); %Basophils 0.1 % (0.0-1.0); %Eosinophils 0.2 % (0.0-10.0); %Lymphocytes 9.7 % (21.0-51.0); %Monocytes 7.3 % (0.0-10.0); %Neutrophils 82.7 % (42.0-75.0); Hemoglobin 10.6 g/dL (14.0-18.0); Mean Corpuscular HGB CONC 31.5 g/dL (32.0-36.0); Mean Corpuscular Hemoglobin 26.8 pg (27.0-31.0); Mean Corpuscular Volume 84.9 fL (78.0-98.0); Mean Platelet Volume 9.5 fL (7.4-10.4); Platelet Count 235 thou/uL (130-400); RBC Distribution Width 13.2 % (11.5-14.5); Red Blood Cell (RBC) Count 3.97 mill/uL (4.70-6.10); White Blood Cell (WBC) Count 9.9 thou/uL (4.8-10.8)
[2018-02-24] MEDS: Pantoprazole 40 MG VIAL IVP SCH (08:38)
[2018-02-24] MEDS: Enoxaparin Sodium 40 MG/0.4 ML SYRINGE SC SCH (08:38)
--- NOTE | 2018-02-24 09:18 | PDOC.FM ---
- Subjective Subjective: 57 yo M with new dx of metastatic colon ca s/p palliative debulking yesterday. States that pain is controlled this am. He denies any fever, chills, n/v. There were no acute events over night. - Objective MAR Reviewed: Yes Vital Signs & Weight: Vital Signs (12 hours) Temp Pulse Resp BP BP Pulse Ox 02/24/18 04:31 98.1 F 81 19 112/71 94 L 02/24/18 00:36 97.9 F 86 23 H 123/78 100 Weight Weight 76.929 kg I&O: 02/23/18 02/24/18 02/25/18 06:59 06:59 06:59 Intake Total 720 1200 Output Total 400 Balance 320 1200 Result Diagrams: 02/24/18 05:07 02/24/18 05:07 <Jose Cespedes - Last Filed: 02/24/18 09:16> - Objective Vital Signs & Weight: Vital Signs (12 hours) Temp Pulse Resp BP Pulse Ox 02/24/18 07:50 98.3 F 77 16 120/72 94 L 02/24/18 04:31 98.1 F 81 19 112/71 94 L Weight Weight 76.929 kg I&O: 02/23/18 02/24/18 02/25/18 06:59 06:59 06:59 Intake Total 720 1200 Output Total 400 Balance 320 1200 Result Diagrams: 02/24/18 05:07 02/24/18 05:07 <Bakari Bain - Last Filed: 02/24/18 13:27> Phys Exam - Physical Examination Constitutional: NAD HEENT: moist MMs, sclera anicteric Neck: no JVD, full ROM Respiratory: clear to auscultation bilateral Cardiovascular: RRR, no significant murmur Gastrointestinal: soft, no distention, positive bowel sounds Appropriately TTP. Surgical incisions are clean and w/o drainage Neurological: non-focal, normal sensation, moves all 4 limbs Psychiatric: normal affect, A&O x 3 Skin: no rash, normal turgor <Jose Cespedes - Last Filed: 02/24/18 09:16> Dx/Plan (1) Colonic mass Code(s): K63.9 - DISEASE OF INTESTINE, UNSPECIFIED Status: Acute (2) Liver metastasis Code(s): C78.7 - SECONDARY MALIG NEOPLASM OF LIVER AND INTRAHEPATIC BILE DUCT Status: Acute (3) Normocytic anemia Code(s): D64.9 - ANEMIA, UNSPECIFIED Status: Acute (4) Atypical chest pain Code(s): R07.89 - OTHER CHEST PAIN Status: Resolved - Plan Plan: Colonic mass - likely to be transverse colon cancer w/mets to liver - colonoscopy performed on 02/23, biopsy results are pending. - s/p resection of mass yesterday. - AFP WNL (2.2), CEA is markedly elevated at 255 - GI following case - Onc has been consulted and should see pt today to discuss options and plan going forward. Pt will stay in town for treatment Atypical chest pain, Resolved - Most likely referred from abdomen - trops negative x3 - HEART score 2 Hepatic mass - likely mets from primary colon cancer - GI/Onc consulted as above Normocytic anemia - stable Hb and vitals - likely 2/2 losses from colon cancer - FOBT positive Dispo: stable, awaiting tissue ID of mass and discussion with onc. Likely ready for dc in the next 2-3 days pending surgical recovery <Jose Cespedes - Last Filed: 02/24/18 09:16> Attending Addendum - Attending Addendum Date/Time: 02/24/18 1325 I personally evaluated the patient and discussed the management with Dr. Cespedes I agree with the History, Examination, Assessment and Plan documented above with any addition or exceptions noted below.POD #1 patient progressing well tolerating po minimal pain VSS. Discussed care plan with family and all questions answered. <Bakari Bain - Last Filed: 02/24/18 13:27>
--- NOTE | 2018-02-24 14:19 | CON ---
DATE OF CONSULTATION: 02/24/2018 REASON FOR CONSULTATION: Colon cancer. HISTORY OF PRESENT ILLNESS: Mr. Ng is a 57-year-old male who presented to the emergenc y room with complaints of chest pain and abdominal pain. He states his symptoms started approximatel y 1 month ago. He has not had any nausea, vomiting, diarrhea, or constipation. No blood in his stoo l. He presented to our emergency room where he had an abdominal and pelvis CT performed, which showe d multifocal hepatic masses. There was an apple core lesion in the transverse colon. He was seen by GI and colonoscopy was performed, the mass was close to a near obstructing; however, he was able to pass the scope. Biopsies were performed and are currently pending. Surgery was consulted for the ob structing mass and laparoscopic transverse colectomy was performed. The patient is recovering nicely . He denies any complaints of chest pain or abdominal pain. He is passing gas. We were asked to se e the patient regarding treatment options. PAST MEDICAL HISTORY: None. PAST SURGICAL HISTORY: None. ALLERGIES: No known drug allergies. HOME MEDICATIONS: None. FAMILY HISTORY: Denies any history of colon cancer. SOCIAL HISTORY: He is and has 3 children. No alcohol, tobacco or illicit drug use. Works i n construction. REVIEW OF SYSTEMS: Twelve-point review of systems is negative. PHYSICAL EXAMINATION: VITAL SIGNS: Temperature is 98.3, pulse is 77, respiratory rate 16, BP is 120/72, 94% on room air. GENERAL: This is a well-developed, well-nourished male, in no acute distress. HEENT: Normocephalic, atraumatic. Pupils are equal and reactive to light. NECK: Supple. CARDIOVASCULAR: Regular rate and rhythm. LUNGS: Clear. ABDOMEN: Soft, mildly tender to palpation at the incisional site. He has laparoscopic incisions hea ling well. Bowel sounds are hypoactive. EXTREMITIES: There is no clubbing, cyanosis or edema. SKIN: No rash. HEMATOLOGIC: No petechia or purpura. NEUROLOGIC: Nonfocal. PSYCHIATRIC: The patient is alert and oriented and appropriate. PERTINENT LABORATORY AND X-RAYS: Current WBCs are 9.9, hemoglobin 10.6, hematocrit 33.7, platelet co unt is 235,000, 83% neutrophils, 10% lymphocytes. Sodium is 136, potassium 4.3, chloride 103, CO2 is 26, BUN 16, creatinine 0.8, calcium is 8.2, total bilirubin is 0.5, AST is 52, ALT is 45, alkaline p hosphatase is 197. Serum total protein is 6.7, albumin 3.5, globulin 3.2. CEA is 255. Radiology pe r HPI. IMPRESSION: Stage IV colon cancer likely adenocarcinoma with metastatic liver lesions, now status po st colectomy. DISCUSSION: The patient has had a MediPort placed during his surgical procedure. He is a candidate for chemotherapy. Unfortunately, he has social issues including no insurance. We will consult case management for financial screening for assistance. Over 60 minutes was spent evaluating and discussi ng the patient's condition and plan of care with the family. Thank you for the consult. We will follow up with this patient.
[2018-02-24] MEDS ORDERED: traMADol HCl 50 MG TAB PO PRN ×2 (17:07)
[2018-02-24] MEDS: Acetaminophen 500 MG TAB PO SCH ×2 (17:25→22:55)
[2018-02-24] MEDS: Ondansetron ODT 4 MG TAB PO PRN (20:41)
[2018-02-24] MEDS ORDERED: Simethicone Chewable 80 MG TAB PO SCH (23:45)
[2018-02-25] MEDS: Ondansetron ODT 4 MG TAB PO PRN (01:02)
--- NOTE | 2018-02-25 01:28 | PRG ---
DATE OF SERVICE: 02/24/2018 SUBJECTIVE: Franco Ng doing well. OBJECTIVE: VITAL SIGNS: 97.8 degrees, 75, 95/67. GENERAL: He is doing well. He does not have any significant pain. His pain is well controlled. LUNGS: Clear to auscultation. CARDIAC: Regular rate and rhythm without murmur or gallop. ABDOMEN: Soft, bowel sounds present, nontender. Surgical wounds look good. LABORATORY DATA: White count 9, hemoglobin 10.6. Sodium 136, potassium 4.3, BUN and creatinine 16 a nd 0.8. ASSESSMENT AND PLAN: Doing well status post laparoscopic transverse colon resection . The michael ent is tolerating his liquids without nausea or vomiting. We will advance him to full liquids this e vening. If he is tolerating a diet, he will be discharged home tomorrow. He has a MediPort, which c an be used for Oncology should follow up with him in 2-3 weeks and follow up with me about [address] Luna is covering and will see the patient Wednesday.
[2018-02-25] MEDS: Acetaminophen 500 MG TAB PO SCH ×3 (06:28→17:57)
[2018-02-25] MEDS: Ketorolac Tromethamine 30 MG/ML VIAL IVP SCH ×4 (06:29→23:20)
[2018-02-25] MEDS: Lactated Ringer's 1,000 ML IV SCH ×2 (06:30→17:58)
[2018-02-25] MEDS: Enoxaparin Sodium 40 MG/0.4 ML SYRINGE SC SCH (08:57)
--- NOTE | 2018-02-25 09:08 | PDOC.FM ---
- Subjective Subjective: 57 yo M with new dx of metastatic colon ca s/p palliative debulking. States that he has had 2 instances of severe stabbing abdominal pain lasting 30-60 sec at a time. He has not had a BM, but is passing flatus. He denies bleeding per rectum. He denies any fever, chills, n/v. - Objective MAR Reviewed: Yes Vital Signs & Weight: Vital Signs (12 hours) Temp Pulse Resp BP BP Pulse Ox 02/25/18 08:26 98.7 F 101 H 16 118/72 96 02/25/18 03:40 98.9 F 92 16 113/69 86 L 02/25/18 01:19 98.4 F 83 18 103/71 93 L 02/24/18 23:59 99.3 F 82 20 99/65 89 L Weight Weight 76.929 kg I&O: 02/24/18 02/25/18 02/26/18 06:59 06:59 06:59 Intake Total 1200 1440 Balance 1200 1440 Result Diagrams: 02/24/18 05:07 02/24/18 05:07 <Jose Cespedes - Last Filed: 02/25/18 09:06> - Objective Vital Signs & Weight: Vital Signs (12 hours) Temp Pulse Resp BP BP Pulse Ox 02/25/18 08:26 98.7 F 101 H 16 118/72 96 02/25/18 03:40 98.9 F 92 16 113/69 86 L 02/25/18 01:19 98.4 F 83 18 103/71 93 L 02/24/18 23:59 99.3 F 82 20 99/65 89 L Weight Weight 76.929 kg I&O: 02/24/18 02/25/18 02/26/18 06:59 06:59 06:59 Intake Total 1200 1440 Balance 1200 1440 Result Diagrams: 02/24/18 05:07 02/24/18 05:07 <Bakari Bain - Last Filed: 02/25/18 11:37> Phys Exam - Physical Examination Constitutional: NAD HEENT: moist MMs, sclera anicteric Neck: no JVD, full ROM Respiratory: clear to auscultation bilateral Cardiovascular: RRR, no significant murmur Gastrointestinal: soft, no distention, positive bowel sounds Incisions are clean and w/o drainage. TTP worst in epigastrum. Musculoskeletal: no edema Neurological: non-focal, moves all 4 limbs Lymphatic: no nodes Psychiatric: normal affect, A&O x 3 Skin: no rash <Jose Cespedes - Last Filed: 02/25/18 09:06> Dx/Plan (1) Colonic mass Code(s): K63.9 - DISEASE OF INTESTINE, UNSPECIFIED Status: Acute (2) Liver metastasis Code(s): C78.7 - SECONDARY MALIG NEOPLASM OF LIVER AND INTRAHEPATIC BILE DUCT Status: Acute (3) Normocytic anemia Code(s): D64.9 - ANEMIA, UNSPECIFIED Status: Acute (4) Atypical chest pain Code(s): R07.89 - OTHER CHEST PAIN Status: Resolved - Plan Plan: Colonic mass - 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 - s/p resection, POD 2. Will discuss post op pain with Gen Surg. Likely gas pain , there is no obvious infection. Hb is stable. Per surg notes, if pt can tolerate full diet today he will be ready to dc - AFP WNL (2.2), CEA is markedly elevated at 255 - GI following case - Onc has been consulted and is planning on out patient management after recovery from surgery. Pt will stay in town for treatment - CM has been consulted for help with meds in outpt setting Atypical chest pain, Resolved - Most likely referred from abdomen - trops negative x3 - HEART score 2 Hepatic mass - likely mets from primary colon cancer - GI/Onc consulted as above Normocytic anemia - stable Hb and vitals - likely 2/2 losses from colon cancer - FOBT positive Dispo: stable, awaiting tissue ID of mass and discussion with onc. Likely ready for dc today or tomorrow. <Jose Cespedes - Last Filed: 02/25/18 09:06> Attending Addendum - Attending Addendum Date/Time: 02/25/18 [id number] I personally evaluated the patient and discussed the management with Dr. Cespedes I agree with the Examination, Assessment and Plan documented above with any addition or exceptions noted below. <Bakari Bain - Last Filed: 02/25/18 11:37>
--- NOTE | 2018-02-25 16:22 | PRG ---
DATE OF SERVICE: 02/25/2018 SUBJECTIVE: Postop day #2 right colectomy, Dr. Lai. Patient is complaining of more pain that is crampy and diffuse today, but more centered over the hand-assist port site. He also has more bloatin g and nausea and the family states that he had dry heaving twice. He is passing gas, but no bowel mo vement since surgery. PHYSICAL EXAMINATION: VITAL SIGNS: His pulse is 90, respirations 16, temperature 99.7, blood pressure 97/61. He is voidin g regularly. ABDOMEN: Soft, minimally distended. Occasional bowel sounds, but not real active. Incisions are he aling well without infection. LABORATORY DATA: White blood cell count is 9 yesterday. No repeat labs today, creatinine was 0.8 ye sterday. ASSESSMENT: Postoperative #2 right colectomy. PLAN: We will bring him back to sips of clears only. I expect this is all postop ileus. Recheck moira lewis in the morning.
[2018-02-26 06:04] LABS: #Eosinphils 0.2 thou/uL (0.0-0.7); #Lymphocytes 1.5 thou/uL (1.20-3.40); #Monocytes 0.9 thou/uL (0.11-0.59); #Neutrophils 10.1 thou/uL (1.40-6.50); %Basophils 0.1 % (0.0-1.0); %Eosinophils 1.3 % (0.0-10.0); %Lymphocytes 11.6 % (21.0-51.0); %Monocytes 7.2 % (0.0-10.0); %Neutrophils 79.8 % (42.0-75.0); Hemoglobin 9.3 g/dL (14.0-18.0); Mean Corpuscular HGB CONC 31.9 g/dL (32.0-36.0); Mean Corpuscular Hemoglobin 27.2 pg (27.0-31.0); Mean Corpuscular Volume 85.2 fL (78.0-98.0); Mean Platelet Volume 8.6 fL (7.4-10.4); Platelet Count 213 thou/uL (130-400); RBC Distribution Width 13.3 % (11.5-14.5); Red Blood Cell (RBC) Count 3.42 mill/uL (4.70-6.10); White Blood Cell (WBC) Count 12.7 thou/uL (4.8-10.8)
[2018-02-26] MEDS: Ketorolac Tromethamine 30 MG/ML VIAL IVP SCH (06:04)
[2018-02-26] MEDS: Ibuprofen 600 MG TAB PO PRN ×3 (06:09→20:40)
[2018-02-26] MEDS: Lactated Ringer's 1,000 ML IV SCH ×2 (06:09→18:52)
[2018-02-26 06:10] LABS: Anion Gap 9 mmol/L (10-20); BUN (Urea Nitrogen) 12 mg/dL (8.4-25.7); Calc. Creatinine Clearance 106 mL/min (70-130); Calcium 8.3 mg/dL (7.8-10.44); Carbon Dioxide 29 mmol/L (22-29); Chloride 103 mmol/L (98-107); Estimated GFR-MDRD Greater than 90; Glucose 87 mg/dL (70-105); Sodium 137 mmol/L (136-145)
--- NOTE | 2018-02-26 07:33 | PDOC.FM ---
- Subjective Subjective: No acute events overnight. Pt still has not had BM. Reports passing flatus, but admits to nausea and 3 episodes of emesis. Denies fever, chills, sweats. His abdominal pain is persistently 6-7 but reports it is currently tolerable and he is feeling better than yesterday. Only complaint is pt c/o hunger. - Objective Vital Signs & Weight: Vital Signs (12 hours) Temp Pulse Resp BP Pulse Ox 02/26/18 04:15 98.3 F 82 16 105/67 95 02/26/18 00:34 98.8 F 90 20 103/64 94 L 02/25/18 20:45 98.6 F 85 16 102/66 95 02/25/18 20:15 98.6 F 85 16 95 Weight Weight 76.929 kg I&O: 02/25/18 02/26/18 02/27/18 06:59 06:59 06:59 Intake Total 1200 2850 Output Total 1150 Balance 1200 1700 Result Diagrams: 02/26/18 05:47 02/26/18 05:47 <Eren Mcgovern - Last Filed: 02/26/18 07:31> - Objective Vital Signs & Weight: Vital Signs (12 hours) Temp Pulse Resp BP Pulse Ox 02/26/18 07:40 98.7 F 81 16 105/65 95 02/26/18 04:15 98.3 F 82 16 105/67 95 02/26/18 00:34 98.8 F 90 20 103/64 94 L Weight Weight 76.929 kg I&O: 02/25/18 02/26/18 02/27/18 06:59 06:59 06:59 Intake Total 1200 2850 Output Total 1150 Balance 1200 1700 Result Diagrams: 02/26/18 05:47 02/26/18 05:47 <Bakari Bain - Last Filed: 02/26/18 10:16> Phys Exam - Physical Examination Constitutional: NAD HEENT: PERRLA, moist MMs, sclera anicteric Neck: no JVD Respiratory: no wheezing, no rales, no rhonchi, clear to auscultation bilateral Cardiovascular: RRR, no significant murmur, no rub Gastrointestinal: soft, no distention Diffusely TTP, sluggish BS Musculoskeletal: no edema, pulses present Neurological: non-focal, moves all 4 limbs Psychiatric: normal affect Skin: no rash, cap refill <2 seconds <Eren Mcgovern - Last Filed: 02/26/18 07:31> Dx/Plan (1) Colonic mass Code(s): K63.9 - DISEASE OF INTESTINE, UNSPECIFIED Status: Acute (2) Liver metastasis Code(s): C78.7 - SECONDARY MALIG NEOPLASM OF LIVER AND INTRAHEPATIC BILE DUCT Status: Acute (3) Normocytic anemia Code(s): D64.9 - ANEMIA, UNSPECIFIED Status: Acute - Plan Plan: Colonic mass - 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 - s/p resection, POD 3. Will discuss post op pain with Gen Surg. Likely gas pain , there is no obvious infection. Hb is stable. Per surg notes, if pt can tolerate full diet today he will be ready to dc - AFP WNL (2.2), CEA is markedly elevated at 255 - GI following case - Onc has been consulted and is planning on out patient management after recovery from surgery. Pt will stay in town for treatment - CM has been consulted for help with meds in outpt setting - Pt did spike white count this am although he denies fever chills and vitals are stable. Consider GI vs source; check UA and await gen surg recs - ADAT, pt will remain in hospital until he is able to have BM Hepatic mass - likely mets from primary colon cancer - GI/Onc consulted as above Normocytic anemia - stable <Eren Mcgovern - Last Filed: 02/26/18 07:31> Attending Addendum - Attending Addendum Date/Time: 02/26/18 1015 I personally evaluated the patient and discussed the management with Dr. Otero I agree with the History, Examination, Assessment and Plan documented above with any addition or exceptions noted below.Patient progressing well advance diet per Surgery recommendations. Patient with flatus today and anxious for dietary advancement. <Bakari Bain - Last Filed: 02/26/18 10:16>
[2018-02-26] MEDS ORDERED: Milk Of Magnesia 30 ML UDCUP PO SCH (09:45)
[2018-02-26] MEDS: Enoxaparin Sodium 40 MG/0.4 ML SYRINGE SC SCH (09:49)
--- NOTE | 2018-02-26 10:06 | PRG ---
DATE OF SERVICE: 02/26/2018 SUBJECTIVE: Mr. Ng feels better today, less bloating, less nausea, no more dry heaving, passing small amounts of gas. PHYSICAL EXAMINATION: VITAL SIGNS: He is afebrile. Vital signs are stable. Multiple voids. ABDOMEN: Soft, minimally distended, but more active bowel sounds today. Wounds are healing well, no evidence of infection. ASSESSMENT: Postop ileus, resolving. PLAN: Back on liquid diet today.
--- NOTE | 2018-02-26 12:37 | EKG ---
Test Reason : CP Blood Pressure : / mmHG Vent. Rate : 074 BPM Atrial Rate : 074 BPM P-R Int : 144 ms QRS Dur : 092 ms QT Int : 374 ms P-R-T Axes : 025 053 029 degrees QTc Int : 415 ms Normal sinus rhythm Normal ECG Confirmed by NIKO SHAFFER M.D. ([id number]), editorial assistant JADE CORREIA ([id number]) on 02/26/2018 12:36:45 PM Referred By: Confirmed By:NIKO SHAFFER M.D.
[2018-02-26 12:59] LABS: Bilirubin Negative (Negative); Blood, Urine Negative (Negative); Clarity CLEAR (Clear); Glucose, Urine (Dipstick) Negative (Negative); Leukocyte Negative (Negative); Nitrite Negative (Negative); Protein, Urine (Dipstick) Negative (Neg-Trace); Specific Gravity, Urine 1.007 (1.002-1.036)
[2018-02-26] MEDS ORDERED: Scopolamine 1.5 mg/72 hour Patch TOP SCH (18:15)
[2018-02-27] MEDS: Ibuprofen 600 MG TAB PO PRN ×4 (02:37→21:05)
[2018-02-27 06:32] LABS: #Eosinphils 0.2 thou/uL (0.0-0.7); #Lymphocytes 1.3 thou/uL (1.20-3.40); #Monocytes 0.7 thou/uL (0.11-0.59); %Basophils 0.4 % (0.0-1.0); %Eosinophils 2.4 % (0.0-10.0); %Lymphocytes 14.1 % (21.0-51.0); %Monocytes 7.9 % (0.0-10.0); %Neutrophils 75.3 % (42.0-75.0); Hemoglobin 9.2 g/dL (14.0-18.0); Mean Corpuscular Hemoglobin 27.2 pg (27.0-31.0); Mean Corpuscular Volume 84.8 fL (78.0-98.0); Mean Platelet Volume 8.4 fL (7.4-10.4); Platelet Count 214 thou/uL (130-400); RBC Distribution Width 13.3 % (11.5-14.5); Red Blood Cell (RBC) Count 3.37 mill/uL (4.70-6.10); White Blood Cell (WBC) Count 9.3 thou/uL (4.8-10.8)
--- NOTE | 2018-02-27 08:02 | PDOC.FM ---
- Subjective Subjective: No acute events overnight. Pt reports he had abdominal pain after soup yesterday that was sever, otherwise pain is about the same as yesterday. Still no BM but passing flatus and urinating appropriately. - Objective Vital Signs & Weight: Vital Signs (12 hours) Temp Pulse Resp BP Pulse Ox 02/26/18 23:51 98.6 F 79 16 111/71 98 Weight Weight 76.929 kg I&O: 02/26/18 02/27/18 02/28/18 06:59 06:59 06:59 Intake Total 2850 1560 1110 Output Total 1150 800 975 Balance 1700 760 135 Result Diagrams: 02/27/18 06:13 02/26/18 05:47 <Eren Mcgovern - Last Filed: 02/27/18 08:00> - Objective Vital Signs & Weight: Vital Signs (12 hours) Temp Pulse Resp BP BP Pulse Ox 02/27/18 08:09 98.3 F 64 14 106/68 96 02/26/18 23:51 98.6 F 79 16 111/71 98 Weight Weight 76.929 kg I&O: 02/26/18 02/27/18 02/28/18 06:59 06:59 06:59 Intake Total 2850 1560 1110 Output Total 1150 800 975 Balance 1700 760 135 Result Diagrams: 02/27/18 06:13 02/26/18 05:47 <Bakari Bain - Last Filed: 02/27/18 11:14> Phys Exam - Physical Examination Constitutional: NAD HEENT: PERRLA, sclera anicteric Neck: no nodes, no JVD, supple Respiratory: no wheezing, no rales, no rhonchi, clear to auscultation bilateral Cardiovascular: RRR, no significant murmur, no rub Gastrointestinal: soft, no distention sluggish BS, mildly ttp Musculoskeletal: no edema, pulses present Neurological: non-focal, moves all 4 limbs Skin: no rash, cap refill <2 seconds <Eren Mcgovern - Last Filed: 02/27/18 08:00> Dx/Plan (1) Colonic mass Code(s): K63.9 - DISEASE OF INTESTINE, UNSPECIFIED Status: Acute (2) Liver metastasis Code(s): C78.7 - SECONDARY MALIG NEOPLASM OF LIVER AND INTRAHEPATIC BILE DUCT Status: Acute (3) Normocytic anemia Code(s): D64.9 - ANEMIA, UNSPECIFIED Status: Acute - Plan Plan: Colonic mass - 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 - s/p resection, POD 4. Will discuss post op pain with Gen Surg. - AFP WNL (2.2), CEA is markedly elevated at 255 - GI following case - Onc has been consulted and is planning on out patient management after recovery from surgery. Pt will stay in town for treatment - CM has been consulted for help with meds in outpt setting - Pt did spike white count this am although he denies fever chills and vitals are stable, this has resolved w/o intervention - once tolerating diet and +BM ok for DC - will await gen surg recs Hepatic mass - likely mets from primary colon cancer - GI/Onc consulted as above Normocytic anemia - stable <Eren Mcgovern - Last Filed: 02/27/18 08:00> Attending Addendum - Attending Addendum Date/Time: 02/27/18 1109 I personally evaluated the patient and discussed the management with Dr. Mcgovern I agree with the History, Examination, Assessment and Plan documented above with any addition or exceptions noted below. Progressing well post op day#4, appreciate recommendations from General Surgery. Patient will need outpatient Oncology follow up when fully recovered from surgery. <Bakari Bain - Last Filed: 02/27/18 11:14>
[2018-02-27] MEDS: Enoxaparin Sodium 40 MG/0.4 ML SYRINGE SC SCH (09:03)
--- NOTE | 2018-02-27 10:11 | PDOC.GSPN ---
Surgery Progress Note: Subj - Subjective Narrative: Still having nausea at times. Had it after tomato soup yesterday. No BM yet but passing gas Surgery Progress Note: Obj - Vital signs Vital signs: Vital Signs - Most Recent Temp Pulse Resp BP Pulse Ox 98.3 F 64 14 106/68 96 02/27/18 08:09 02/27/18 08:09 02/27/18 08:09 02/27/18 08:09 02/27/18 08:09 - Physical Exam General: no distress Cardiovascular: regular rate and rhythm Respiratory: clear to auscultation Abdomen: soft, nondistended, positive bowel sounds, appropriately tender Wound: healing well Surgery Progress Note: Results - Labs Result Diagrams: 02/27/18 06:13 02/26/18 05:47 Lab results: Laboratory Results - last 24 hr 02/27/18 06:13 WBC 9.3 RBC 3.37 L Hgb 9.2 L Hct 28.6 L MCV 84.8 MCH 27.2 MCHC 32.0 RDW 13.3 Plt Count 214 MPV 8.4 Neutrophils % 75.3 H Lymphocytes % 14.1 L Monocytes % 7.9 Eosinophils % 2.4 Basophils % 0.4 Neutrophils # 7.0 H Lymphocytes # 1.3 Monocytes # 0.7 H Eosinophils # 0.2 Basophils # 0.0 - Radiology Interpretation CT scan - abdomen Status: report reviewed by me (1. Multifocal hepatic masses, worrisome for metastasis until proven otherwise. 2. 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 The re is induration of the adjacent fat with lymphadenopathy suggestion metastatic disease) US - abdomen Status: report reviewed by me (Multiple hepatic masses. Better interrogation with a liver mass protocol CT is recommended.) Surgery Progress Note: A/P - Problem (1) Colonic mass Current Visit: Yes Code(s): K63.9 - DISEASE OF INTESTINE, UNSPECIFIED Status : Acute (2) Liver metastasis Current Visit: Yes Code(s): C78.7 - SECONDARY MALIG NEOPLASM OF LIVER AND INTRAHEPATIC BILE DUCT Status: Acute - Plan Plan: I wonder if some component of persistent nausea is from metastatic disease -full liquids one more day -milk of magnesium
[2018-02-27] MEDS ORDERED: Milk Of Magnesia 30 ML UDCUP PO SCH (10:15)
[2018-02-27] MEDS: Lactated Ringer's 1,000 ML IV SCH (11:38)
[2018-02-28] MEDS: Lactated Ringer's 1,000 ML IV SCH ×2 (00:32→13:07)
[2018-02-28] MEDS: Ibuprofen 600 MG TAB PO PRN ×2 (03:03→13:06)
[2018-02-28 05:29] LABS: #Eosinphils 0.2 thou/uL (0.0-0.7); #Lymphocytes 1.4 thou/uL (1.20-3.40); #Monocytes 0.7 thou/uL (0.11-0.59); #Neutrophils 4.9 thou/uL (1.40-6.50); %Basophils 0.5 % (0.0-1.0); %Eosinophils 2.5 % (0.0-10.0); %Lymphocytes 19.8 % (21.0-51.0); %Monocytes 9.9 % (0.0-10.0); %Neutrophils 67.3 % (42.0-75.0); Hemoglobin 8.9 g/dL (14.0-18.0); Mean Corpuscular Hemoglobin 26.2 pg (27.0-31.0); Mean Corpuscular Volume 84.8 fL (78.0-98.0); Mean Platelet Volume 8.8 fL (7.4-10.4); Platelet Count 247 thou/uL (130-400); RBC Distribution Width 13.4 % (11.5-14.5); Red Blood Cell (RBC) Count 3.39 mill/uL (4.70-6.10); White Blood Cell (WBC) Count 7.3 thou/uL (4.8-10.8)
--- NOTE | 2018-02-28 06:25 | PDOC.FM ---
- Subjective Subjective: 57 yo male seen this AM. Daughter in room is rolling machine tender. Patient states his pain is still not well controlled. He describes his pain as 7/10 that fluctuates some with the morphine, but never consistently is controlled. He is aware of his diagnosis and the plan for case management to assist with treatment. Patient has not had a BM yet, but he is passing gas. He still complains of nausea, but no vomiting. His nausea is improved from previous as well. Patient feels that he is not ready to go home and would like to be able to eat, drink, and have better pain control. No other complaints today. - Objective Vital Signs & Weight: Vital Signs (12 hours) Temp Pulse Resp BP Pulse Ox 02/28/18 04:00 98.2 F 71 16 110/70 94 L 02/27/18 23:37 98.3 F 77 16 117/75 96 02/27/18 20:00 98.6 F 77 16 110/71 97 Weight Weight 76.929 kg I&O: 02/26/18 02/27/18 02/28/18 06:59 06:59 06:59 Intake Total 2850 1560 2670 Output Total 9879 794 0660 Balance 3449 268 8465 Result Diagrams: 02/28/18 04:55 02/26/18 05:47 <Jaya Bauman - Last Filed: 02/28/18 08:29> - Objective Vital Signs & Weight: Vital Signs (12 hours) Temp Pulse Resp BP Pulse Ox 02/28/18 11:49 98 F 75 24 H 138/79 97 02/28/18 08:36 98 F 69 12 92 L 02/28/18 07:55 98 F 69 12 114/71 92 L 02/28/18 04:00 98.2 F 71 16 110/70 94 L Weight Weight 76.929 kg I&O: 02/27/18 02/28/18 03/01/18 06:59 06:59 06:59 Intake Total 1560 2670 1660 Output Total 800 1575 650 Balance 760 1095 1010 Result Diagrams: 02/28/18 04:55 02/26/18 05:47 <Nidia Diane - Last Filed: 02/28/18 13:17> Phys Exam - Physical Examination HEENT: PERRLA, moist MMs Respiratory: no wheezing, clear to auscultation bilateral Cardiovascular: RRR, no significant murmur Gastrointestinal: soft, no distention, positive bowel sounds Tenderness to palpation, no rebound or guarding. Surgical incisions clean, dry and intact Musculoskeletal: no edema, pulses present Neurological: non-focal, normal sensation, moves all 4 limbs Lymphatic: no nodes Psychiatric: normal affect, A&O x 3 Skin: no rash <Jaya Bauman - Last Filed: 02/28/18 08:29> Dx/Plan (1) Adenocarcinoma of colon Code(s): C18.9 - MALIGNANT NEOPLASM OF COLON, UNSPECIFIED Status: Acute (2) Colonic mass Code(s): K63.9 - DISEASE OF INTESTINE, UNSPECIFIED Status: Acute (3) Liver metastasis Code(s): C78.7 - SECONDARY MALIG NEOPLASM OF LIVER AND INTRAHEPATIC BILE DUCT Status: Acute (4) Normocytic anemia Code(s): D64.9 - ANEMIA, UNSPECIFIED Status: Acute - Plan Plan: Colonic mass - Pathology reveals Adenocarcinoma - s/p resection, POD 5. - Patient may need change to pain regimen - AFP WNL (2.2), CEA is markedly elevated at 255 - GI following case - Onc has been consulted and is planning on out patient management after recovery from surgery. Pt will stay in town for treatment - CM has been consulted for help with meds in outpt setting - once tolerating diet and +BM ok for DC - Currently tolerating liquid diet. No BM, but passing gas. - Will defer to Gen Surg recs Hepatic mass - likely mets from primary colon cancer - GI/Onc consulted as above Normocytic anemia - stable, Hgb this AM 8.9 - Will repeat if status changes Disposition: Stable, will await improvement in diet as well as Case Management planning. <Jaya Bauman - Last Filed: 02/28/18 08:29> Attending Addendum - Attending Addendum Date/Time: 02/28/18 1316 I personally evaluated the patient and discussed the management with Dr. Bauman. I agree with the History, Examination, Assessment and Plan documented above with any addition or exceptions noted below. The patient's pain isn't well controlled. Will check with gen surg on starting [place]. Pt is drinking contrast for a CT scan since he still hasn't had a BM. <Nidia Diane - Last Filed: 02/28/18 13:17>
[2018-02-28] MEDS: Enoxaparin Sodium 40 MG/0.4 ML SYRINGE SC SCH (08:36)
[2018-02-28] MEDS: Ondansetron ODT 4 MG TAB PO PRN (11:52)
[2018-02-28] MEDS ORDERED: Iopamidol 370 76% 100 ML VIAL ONE (13:46)
[2018-02-28] MEDS ORDERED: Iopamidol 370 76% 50 ML VIAL FS ONE (13:46)
--- NOTE | 2018-02-28 13:47 | CT ---
CT ABDOMEN AND PELVIS WITH CONTRAST: Technique: Multiple axial tomograms were obtained through the abdomen and pelvis with IV enhancement. History: Colon cancer. Recent colon resection. Persistent post op pain. Comparison: 02-21-18 FINDINGS: Images through the lung bases show small bilateral pleural effusions and bibasilar atelectasis. Numerous low density lesions throughout the liver consistent with diffuse liver metastasis is again n oted, unchanged. The spleen and pancreas are unremarkable. Kidneys are unremarkable. Post-operative changes seen in the transverse colon consistent with the history of resection and anas tomosis. No evidence of perforation or leakage. There is no fluid or abscess collection seen. Small b owel loops are normal caliber. Mild mesenteric haziness and stranding is consistent with post-operati ve change. IMPRESSION: 1. Post-operative changes in the transverse colon. No acute intraabdominal process identified. 2. Small bilateral pleural effusions and bibasilar atelectasis. 3. Diffuse liver metastasis again noted. POS: [facility]
[2018-02-28] MEDS ORDERED: Milk Of Magnesia 30 ML UDCUP PO SCH (13:54)
--- NOTE | 2018-02-28 14:02 | PRG ---
DATE OF SERVICE: 02/28/2018 SUBJECTIVE: Mr. Ng is still complaining of pain, requiring morphine, as well as persistent naus ea. He is passing gas. He says he is hungry, but he has not had a bowel movement since surgery. PHYSICAL EXAMINATION: VITAL SIGNS: He is afebrile. He is nontachycardic. His vital signs are stable. CHEST: Clear. HEART: Regular rate and rhythm. ABDOMEN: Soft, it is diffuse, mildly appropriately tender without guarding or rebound. He does have occasional bowel sounds. The wounds are healing well without evidence of infection. LABORATORY DATA: His white blood cell count is normal with normal differential. ASSESSMENT: Postoperative transverse colectomy in the setting of metastatic colon cancer by Dr. Oksana hidalgo. Persistent ileus and abdominal pain, requiring morphine. PLAN: CT of the abdomen and pelvis today; if normal, we will switch him over to a different oral yifan n control.
[2018-02-28] MEDS: HYDROcodone/Acetaminophen 10/325 mg Tablet PO PRN ×2 (15:41→21:24)
[2018-02-28] MEDS: Bisacodyl 10 MG SUPP PR SCH (17:38)
[2018-03-01] MEDS: HYDROcodone/Acetaminophen 10/325 mg Tablet PO PRN ×2 (02:44→07:49)
--- NOTE | 2018-03-01 06:28 | PDOC.FM ---
- Subjective Subjective: 57 yo male seen this AM. Daughter present in room is projects manager. Still complains of abdominal pain this am. [place] has improved his pain, but also causes some dizziness. He states that he had a small watery BM yesterday. Patient has been tolerating PO intake and passing gas. He has also been up and walking with improvement of his overall condition. No other complaints. - Objective Vital Signs & Weight: Vital Signs (12 hours) Temp Pulse Resp BP Pulse Ox 03/01/18 04:00 98.2 F 91 16 124/77 91 L 03/01/18 00:00 98.4 F 71 16 111/72 92 L 02/28/18 20:00 98.2 F 70 16 02/28/18 19:53 98.2 F 70 16 100/63 93 L Weight Weight 76.929 kg I&O: 02/27/18 02/28/18 03/01/18 06:59 06:59 06:59 Intake Total 1560 2670 2740 Output Total 800 1575 1500 Balance 760 1095 1240 Result Diagrams: 02/28/18 04:55 02/26/18 05:47 <Jaya Bauman - Last Filed: 03/01/18 08:20> - Objective Vital Signs & Weight: Vital Signs (12 hours) Temp Pulse Resp BP Pulse Ox 03/01/18 16:16 98.3 F 84 18 131/76 94 L 03/01/18 12:00 98.1 F 69 18 120/75 91 L 03/01/18 08:00 98.5 F 86 18 124/78 92 L 03/01/18 07:50 98.5 F 86 18 92 L Weight Weight 76.929 kg I&O: 02/28/18 03/01/18 03/02/18 06:59 06:59 06:59 Intake Total 2670 3220 Output Total 1575 1500 Balance 1095 1720 Result Diagrams: 02/28/18 04:55 02/26/18 05:47 <Nidia Diane - Last Filed: 03/01/18 17:58> Phys Exam - Physical Examination Constitutional: NAD HEENT: moist MMs Neck: no nodes Respiratory: no wheezing, clear to auscultation bilateral Cardiovascular: RRR, no significant murmur Gastrointestinal: soft, no distention, positive bowel sounds Incision sites clean dry and intact. Tenderness to palpation diffusely Musculoskeletal: no edema, pulses present Neurological: non-focal, normal sensation, moves all 4 limbs Lymphatic: no nodes Psychiatric: normal affect, A&O x 3 Skin: no rash <Jaya Bauman - Last Filed: 03/01/18 08:20> Dx/Plan (1) Adenocarcinoma of colon Code(s): C18.9 - MALIGNANT NEOPLASM OF COLON, UNSPECIFIED Status: Acute (2) Colonic mass Code(s): K63.9 - DISEASE OF INTESTINE, UNSPECIFIED Status: Acute (3) Liver metastasis Code(s): C78.7 - SECONDARY MALIG NEOPLASM OF LIVER AND INTRAHEPATIC BILE DUCT Status: Acute (4) Normocytic anemia Code(s): D64.9 - ANEMIA, UNSPECIFIED Status: Acute - Plan Plan: Colonic mass - Pathology reveals Adenocarcinoma - s/p resection, POD 6. - General Surgery started [place] 7/2 - AFP WNL (2.2), CEA is markedly elevated at 255 - GI following case - Onc has been consulted and is planning on out patient management after recovery from surgery. Pt will stay in town for treatment - CM has been consulted for help with meds in outpt setting - Currently tolerating liquid diet. Small watery BM yesteray, but passing gas. Does not want to have suppositories at this time. - Will defer to Gen Surg recs Hepatic mass - likely mets from primary colon cancer - GI/Onc consulted as above Normocytic anemia - stable, Hgb this AM 8.9 - Will repeat if status changes Disposition: Stable, will await improvement in diet and BM status as well as Case Management planning. <Jaya Bauman - Last Filed: 03/01/18 08:20> Attending Addendum - Attending Addendum Date/Time: 03/01/18 3385 I personally evaluated the patient and discussed the management with Dr. Bauman. I agree with the History, Examination, Assessment and Plan documented above with any addition or exceptions noted below. Patient's pain is better controlled with norco however he is experiencing dizziness and nausea. He received zofran for nauseas. Discussed adjusting dose of norco. <Nidia Diane - Last Filed: 03/01/18 17:58>
[2018-03-01] MEDS: Enoxaparin Sodium 40 MG/0.4 ML SYRINGE SC SCH (07:50)
[2018-03-01] MEDS: Ondansetron ODT 4 MG TAB PO PRN ×2 (09:48→14:53)
[2018-03-01] MEDS: Bisacodyl 10 MG SUPP PR SCH (12:07)
[2018-03-01] MEDS ORDERED: Bisacodyl 10 MG SUPP PR ONE (13:43)
[2018-03-01] MEDS ORDERED: HYDROcodone/Acetaminophen 5/325 mg Tablet PO PRN ×2 (13:43)
--- NOTE | 2018-03-01 14:05 | PRG ---
DATE OF SERVICE: 03/01/2018 SUBJECTIVE: Mr. Ng is complaining of nausea midday, still not had a bowel movement although he is passing gas. CT scan normal yesterday with no evidence of leak or abscess. He refused Dulcolax s uppository yesterday. OBJECTIVE: VITAL SIGNS: He is afebrile. Vital signs are stable. ABDOMEN: Soft, really minimally distended. He does have active bowel sounds. Wounds are healing we ll. ASSESSMENT: Postoperative day #6, extended right colectomy with persistent mild ileus, although pass ing gas, tolerating diet at times, but persistent nausea some of this is related to significant metas tatic liver disease. PLAN: I did recommend the Dulcolax suppository today. We will lower the [place] dose to 5. I think ministerio taylor is very sensitive to pain medicine in terms of nausea. He already did not tolerate the tramadol be cause of dizziness. Slow progress, but I think he will be ready to be discharged in the next few day s.
[2018-03-01] MEDS: Sodium Chloride 0.9% 1,000 ML IV SCH (14:46)
[2018-03-02] MEDS: Sodium Chloride 0.9% 1,000 ML IV SCH ×2 (04:35→16:42)
[2018-03-02] MEDS: Ibuprofen 600 MG TAB PO PRN ×2 (05:41→20:02)
--- NOTE | 2018-03-02 06:26 | PDOC.FM ---
- Subjective Subjective: 57 yo male seen this AM. Daughter in room acts as crushing machine operator. Patient states he had a better night. He has not been using the [place] and has instead been using Ibuprofen. He states he is no longer nauseas or vomiting. He states that his pain is overall improved today down to a 5/10. He states that he has not had a BM, but did take the suppository yesterday. He notes that he had been urinating without problem. He is encouraged to increase his PO intake and his ambulation in hopes of stimulating a BM. He expressed understanding. He has not heard any information regarding Case Management or terminal operator treatment plans. No other complaints today. - Objective Vital Signs & Weight: Vital Signs (12 hours) Temp Pulse Resp BP Pulse Ox 03/02/18 03:54 98.6 F 80 16 121/74 93 L 03/01/18 23:45 98.7 F 79 16 132/79 94 L 03/01/18 20:30 98.5 F 74 16 03/01/18 19:58 98.5 F 74 16 132/78 95 Weight Weight 76.929 kg I&O: 02/28/18 03/01/18 03/02/18 06:59 06:59 06:59 Intake Total 2670 3220 1025 Output Total 1575 1500 1225 Balance 1095 1720 -200 Result Diagrams: 02/28/18 04:55 02/26/18 05:47 <Jaya Bauman - Last Filed: 03/02/18 07:25> - Objective Vital Signs & Weight: Vital Signs (12 hours) Temp Pulse Resp BP Pulse Ox 03/02/18 12:17 98.3 F 77 16 124/65 92 L 03/02/18 08:45 98.3 F 69 16 95 03/02/18 07:46 98.3 F 69 16 117/71 95 Weight Weight 76.929 kg I&O: 03/01/18 03/02/18 03/03/18 06:59 06:59 06:59 Intake Total 3220 1025 Output Total 1500 1225 Balance 1720 -200 Result Diagrams: 02/28/18 04:55 02/26/18 05:47 <Nidia Diane - Last Filed: 03/02/18 16:00> Phys Exam - Physical Examination Constitutional: NAD HEENT: PERRLA, moist MMs Neck: no nodes Respiratory: no wheezing, clear to auscultation bilateral Cardiovascular: RRR Gastrointestinal: soft, no distention, positive bowel sounds Tender diffusely, improved from yesterday. Incisions clean, dry, and intact Musculoskeletal: no edema, pulses present Neurological: non-focal, normal sensation, moves all 4 limbs Lymphatic: no nodes Psychiatric: normal affect, A&O x 3 Skin: no rash <Jaya Bauman - Last Filed: 03/02/18 07:25> Dx/Plan (1) Adenocarcinoma of colon Code(s): C18.9 - MALIGNANT NEOPLASM OF COLON, UNSPECIFIED Status: Acute (2) Colonic mass Code(s): K63.9 - DISEASE OF INTESTINE, UNSPECIFIED Status: Acute (3) Liver metastasis Code(s): C78.7 - SECONDARY MALIG NEOPLASM OF LIVER AND INTRAHEPATIC BILE DUCT Status: Acute (4) Normocytic anemia Code(s): D64.9 - ANEMIA, UNSPECIFIED Status: Acute (5) Nausea & vomiting Code(s): R11.2 - NAUSEA WITH VOMITING, UNSPECIFIED Status: Acute - Plan Plan: Colonic mass - Pathology reveals Adenocarcinoma - s/p resection, POD 7. - General Surgery started [place] 7/2 - AFP WNL (2.2), CEA is markedly elevated at 255 - GI following case - Onc has been consulted and is planning on out patient management after recovery from surgery. Pt will stay in town for treatment - CM has been consulted for help with meds in outpt setting - Currently tolerating liquid diet. No BM but passing gas. Agreed to suppositories yesterday. - Will defer to Gen Surg recs Hepatic mass - likely mets from primary colon cancer - GI/Onc consulted as above Normocytic anemia - Will repeat if status changes Nausea and Vomiting - Likely due to [place] use - Gen surg decreased dose yesterday - Will attempt to balance pain control and symptoms Disposition: Stable, will await improvement in diet and BM status as well as Case Management planning. <Jaya Bauman - Last Filed: 03/02/18 07:25> Attending Addendum - Attending Addendum Date/Time: 03/02/18 2055 I personally evaluated the patient and discussed the management with Dr. Bauman. I agree with the History, Examination, Assessment and Plan documented above with any addition or exceptions noted below. The patient is no longer taking norco. He is getting an nsaid for pain. Will add tylenol. He states pain is 5/10 and is manageable. Still no bowel movement but pt did tolerate breakfast. Will likely be able to stop IV fluids. <Nidia Diane - Last Filed: 03/02/18 16:00>
[2018-03-02] MEDS: Enoxaparin Sodium 40 MG/0.4 ML SYRINGE SC SCH (08:45)
[2018-03-02] MEDS ORDERED: Acetaminophen 500 MG TAB PO PRN ×2 (11:05→16:41)
[2018-03-02] MEDS ORDERED: Ondansetron HCl/PF 4 MG/2 ML Vial SLOW IVP PRN (12:42)
[2018-03-02] MEDS ORDERED: Ibuprofen 800 MG TAB PO SCH (14:00)
[2018-03-02] MEDS ORDERED: traMADol HCl 50 MG TAB PO PRN ×2 (16:41)
[2018-03-02] MEDS ORDERED: Ondansetron ORAL SOLN. 4 MG/5 ML UDCUP PO PRN ×2 (16:41)
[2018-03-02] MEDS ORDERED: Milk Of Magnesia 30 ML UDCUP PO PRN (16:43)
[2018-03-02 17:41] LABS: Anion Gap 11 mmol/L (10-20); BUN (Urea Nitrogen) 15 mg/dL (8.4-25.7); Calc. Creatinine Clearance 98 mL/min (70-130); Calcium 8.4 mg/dL (7.8-10.44); Carbon Dioxide 26 mmol/L (22-29); Chloride 103 mmol/L (98-107); Estimated GFR-MDRD 89; Glucose 133 mg/dL (70-105); Potassium 4.1 mmol/L (3.5-5.1); Sodium 136 mmol/L (136-145)
[2018-03-02] MEDS: Polyethylene Glycol 3350 17 GM Packet PO SCH (20:03)
[2018-03-02] MEDS: Metoclopramide HCl 10 MG/2 ML VIAL IVP SCH (22:44)
[2018-03-03 05:55] LABS: #Eosinphils 0.2 thou/uL (0.0-0.7); #Lymphocytes 1.5 thou/uL (1.20-3.40); #Monocytes 1.2 thou/uL (0.11-0.59); #Neutrophils 6.4 thou/uL (1.40-6.50); %Basophils 0.5 % (0.0-1.0); %Eosinophils 2.1 % (0.0-10.0); %Lymphocytes 16.4 % (21.0-51.0); %Monocytes 12.3 % (0.0-10.0); %Neutrophils 68.6 % (42.0-75.0); Hemoglobin 9.5 g/dL (14.0-18.0); Mean Corpuscular HGB CONC 32.4 g/dL (32.0-36.0); Mean Corpuscular Hemoglobin 26.8 pg (27.0-31.0); Mean Corpuscular Volume 82.8 fL (78.0-98.0); Mean Platelet Volume 8.2 fL (7.4-10.4); Platelet Count 374 thou/uL (130-400); RBC Distribution Width 13.3 % (11.5-14.5); Red Blood Cell (RBC) Count 3.52 mill/uL (4.70-6.10); White Blood Cell (WBC) Count 9.4 thou/uL (4.8-10.8)
[2018-03-03] MEDS: Metoclopramide HCl 10 MG/2 ML VIAL IVP SCH ×2 (06:05→14:53)
[2018-03-03] MEDS ORDERED: Preparation H HC 1% Cream 26 GM TUBE TOP PRN (06:40)
--- NOTE | 2018-03-03 08:15 | PDOC.FM ---
- Subjective Subjective: Daughter in room as spanish interpreter/translator. Patient had improved night. He thinks the ibuprofen scheduled has helped the pain. He still gets sharp pains every now and then, but he does not want to take [place] and have the dizziness again. He states he has had two small BMs yesterday and is passing gas. He has had no problems tolerating PO and is increasing his ambulation. He denies chest pain, n /v/d, sob, fevers, chills, or coughs. No other complaints. - Objective Vital Signs & Weight: Vital Signs (12 hours) Temp Pulse Resp BP BP Pulse Ox 03/03/18 07:15 98.2 F 83 14 122/75 95 03/03/18 05:01 98.8 F 72 19 131/79 96 03/03/18 00:28 98.7 F 79 21 H 118/74 94 L 03/02/18 20:34 98.9 F 79 17 129/75 95 Weight Weight 76.929 kg I&O: 03/02/18 03/03/18 03/04/18 06:59 06:59 06:59 Intake Total 1025 1660 Output Total 1225 Balance -200 1660 Result Diagrams: 03/03/18 05:16 03/02/18 17:08 <Jaya Bauman - Last Filed: 03/03/18 08:13> - Objective Vital Signs & Weight: Vital Signs (12 hours) Temp Pulse Resp BP BP Pulse Ox 03/03/18 15:10 98.3 F 82 14 104/70 94 L 03/03/18 11:43 98.3 F 89 16 116/73 96 03/03/18 08:00 98.2 F 83 14 95 03/03/18 07:15 98.2 F 83 14 122/75 95 03/03/18 05:01 98.8 F 72 19 131/79 96 Weight Weight 76.929 kg I&O: 03/02/18 03/03/18 03/04/18 06:59 06:59 06:59 Intake Total 1025 1660 Output Total 1225 Balance -200 1660 Result Diagrams: 03/03/18 05:16 03/02/18 17:08 <Nidia Diane - Last Filed: 03/03/18 17:00> Phys Exam - Physical Examination Constitutional: NAD HEENT: PERRLA, moist MMs Neck: no nodes Respiratory: no wheezing, clear to auscultation bilateral Cardiovascular: RRR, no significant murmur Gastrointestinal: soft, no distention, positive bowel sounds Diffusely tender. Incisions clean, dry, and intact Musculoskeletal: no edema, pulses present Neurological: non-focal, normal sensation, moves all 4 limbs Lymphatic: no nodes Psychiatric: normal affect, A&O x 3 Skin: no rash <Jaya Bauman - Last Filed: 03/03/18 08:13> Dx/Plan (1) Adenocarcinoma of colon Code(s): C18.9 - MALIGNANT NEOPLASM OF COLON, UNSPECIFIED Status: Acute (2) Colonic mass Code(s): K63.9 - DISEASE OF INTESTINE, UNSPECIFIED Status: Acute (3) Liver metastasis Code(s): C78.7 - SECONDARY MALIG NEOPLASM OF LIVER AND INTRAHEPATIC BILE DUCT Status: Acute (4) Normocytic anemia Code(s): D64.9 - ANEMIA, UNSPECIFIED Status: Acute (5) Nausea & vomiting Code(s): R11.2 - NAUSEA WITH VOMITING, UNSPECIFIED Status: Acute (6) Hemorrhoids Code(s): K64.9 - UNSPECIFIED HEMORRHOIDS Status: Acute - Plan Plan: Colonic mass - Pathology reveals Adenocarcinoma - s/p resection, POD 8. - General Surgery started [place] /, but patient doesn't tolerate - Increased Ibuprofen regimen with improvement. - AFP WNL (2.2), CEA is markedly elevated at 255 - GI following case - Onc has been consulted and is planning on out patient management after recovery from surgery. Pt will stay in town for treatment - CM has been consulted for help with meds in outpt setting - Currently tolerating GI soft diet. Tolerating well - 2 small BMs and passing gas. - Will defer to Gen Surg recs Hepatic mass - likely mets from primary colon cancer - GI/Onc consulted as above Normocytic anemia - Will repeat if status changes Nausea and Vomiting - Likely due to [place] use - Gen surg decreased dose yesterday - Without [place], has improved symptoms Hemorrhoids - Flare due to straining to have BM - Advsied to continue stool softeners - Topical therapy ordered Disposition: Stable, will await improvement in diet and BM status as well as Case Management planning. <Jaya Bauman - Last Filed: 03/03/18 08:13> Attending Addendum - Attending Addendum Date/Time: 03/03/18 0841 I personally evaluated the patient and discussed the management with Dr. Bauman. I agree with the History, Examination, Assessment and Plan documented above with any addition or exceptions noted below. KUB is pending. Pt with small bm yesterday. Today he notes he is feeling very weak. Encouraged him to get up in a chair and to walk some. Continue nsaids for pain. <Nidia Diane - Last Filed: 03/03/18 17:00>
[2018-03-03] MEDS: Enoxaparin Sodium 40 MG/0.4 ML SYRINGE SC SCH (08:42)
[2018-03-03] MEDS: Polyethylene Glycol 3350 17 GM Packet PO SCH ×2 (08:42→20:24)
--- NOTE | 2018-03-03 08:44 | RAD ---
ACUTE ABDOMINAL SERIES 2 VIEWS ABDOMEN AND 1 VIEW CHEST: Four views provided. INDICATION: Postoperative patient with nausea and vomiting. FINDINGS: There is a rounded density at the right hilum. Patchy bibasilar densities favor atelectasis. There is mild elevation of the right hemidiaphragm. A left-sided chest port is present. There is no free air seen beneath the hemidiaphragms. Bowel gas pattern is nonspecific. No acute osseous pathology. IMPRESSION: 1. Bilateral atelectasis. 2. Nonobstructed bowel gas pattern. 3. Round density of the right perihilar region. The possibility of underlying mass or adenopathy is not excluded. This may be further assessed with CT of thorax. POS: NATA
[2018-03-03] MEDS: Ibuprofen 600 MG TAB PO PRN ×2 (09:19→20:24)
[2018-03-03] MEDS ORDERED: Milk Of Magnesia 30 ML UDCUP PO SCH (12:30)
--- NOTE | 2018-03-03 14:19 | PRG ---
DATE OF SERVICE: 03/03/2018 HISTORY: Mr. Ng is doing well today. He is having less nausea. He has had multiple bowel move ments, mostly liquid. Abdominal x-rays suggest stool in the right colon and left colon. PHYSICAL EXAMINATION: LUNGS: Clear to auscultation. CARDIAC: Regular rate and rhythm without murmur or gallop. ABDOMEN: Soft, nontender. VITAL SIGNS: temperature 98.3 degrees, 89, 116/73. ASSESSMENT AND PLAN: Improving bowel function. He has had bowel movements. Continue MiraLax twice a day, fiber, minimize narcotics. Increase activity. Anticipate discharge home tomorrow.
[2018-03-04] MEDS: Metoclopramide HCl 10 MG/2 ML VIAL IVP SCH ×4 (00:24→21:38)
--- NOTE | 2018-03-04 06:23 | PDOC.FM ---
- Subjective Subjective: 57 yo male is seen this AM. Patient states his pain is not well controlled. He states that he has only been having small amount of water BMs and is nauseas more today than yesterday. He was up and walking quite a bit yesterday, but today feels fatigued and is in more pain. Patient's family is hesitant for plan of discharge today. No other complaints today. - Objective Vital Signs & Weight: Vital Signs (12 hours) Temp Pulse Resp BP Pulse Ox 03/04/18 04:27 98.3 F 90 19 119/75 95 03/04/18 00:24 98.4 F 84 16 117/70 97 03/03/18 20:00 98.4 F 99 19 104/66 95 Weight Weight 76.929 kg I&O: 03/02/18 03/03/18 03/04/18 06:59 06:59 06:59 Intake Total 1025 1660 800 Output Total 1225 Balance -200 1660 800 Result Diagrams: 03/03/18 05:16 03/02/18 17:08 <Jaya Bauman - Last Filed: 03/04/18 08:19> - Objective Vital Signs & Weight: Vital Signs (12 hours) Temp Pulse Resp BP Pulse Ox 03/04/18 15:25 97.8 F 81 16 111/74 97 03/04/18 11:39 98.1 F 88 16 101/64 94 L 03/04/18 08:49 98.1 F 74 14 106/67 95 03/04/18 08:21 98.3 F 90 19 03/04/18 04:27 98.3 F 90 19 119/75 95 Weight Admit Weight 76.929 kg Weight 76.929 kg I&O: 03/03/18 03/04/18 03/05/18 06:59 06:59 06:59 Intake Total 1660 800 Balance 1660 800 Result Diagrams: 03/03/18 05:16 03/02/18 17:08 <Nidia Diane - Last Filed: 03/04/18 16:11> Phys Exam - Physical Examination Constitutional: NAD HEENT: PERRLA Neck: no nodes Respiratory: no wheezing, clear to auscultation bilateral Cardiovascular: RRR, no significant murmur Gastrointestinal: soft, no distention, positive bowel sounds Diffusely tender. No rebound present. Incisions clean dry and intact Musculoskeletal: no edema, pulses present Neurological: non-focal, normal sensation, moves all 4 limbs Lymphatic: no nodes Psychiatric: normal affect, A&O x 3 Skin: no rash <Jaya Bauman - Last Filed: 03/04/18 08:19> Dx/Plan (1) Adenocarcinoma of colon Code(s): C18.9 - MALIGNANT NEOPLASM OF COLON, UNSPECIFIED Status: Acute (2) Colonic mass Code(s): K63.9 - DISEASE OF INTESTINE, UNSPECIFIED Status: Acute (3) Liver metastasis Code(s): C78.7 - SECONDARY MALIG NEOPLASM OF LIVER AND INTRAHEPATIC BILE DUCT Status: Acute (4) Normocytic anemia Code(s): D64.9 - ANEMIA, UNSPECIFIED Status: Acute (5) Nausea & vomiting Code(s): R11.2 - NAUSEA WITH VOMITING, UNSPECIFIED Status: Acute (6) Hemorrhoids Code(s): K64.9 - UNSPECIFIED HEMORRHOIDS Status: Acute - Plan Plan: Colonic mass - Pathology reveals Adenocarcinoma - s/p resection, POD 8. - General Surgery started [place] /, but patient doesn't tolerate - Increased Ibuprofen regimen with improvement. - AFP WNL (2.2), CEA is markedly elevated at 255 - GI following case - Onc has been consulted and is planning on out patient management after recovery from surgery. Pt will stay in town for treatment - CM has been consulted for help with meds in outpt setting - Currently tolerating GI soft diet. Tolerating well - small BMs and passing gas. - General Surgery anticipates discharge home today. Hepatic mass - likely mets from primary colon cancer - GI/Onc consulted as above Normocytic anemia - Improved and stabilized - Outpatient monitoring recommended Nausea and Vomiting - Likely due to [place] use - Related to pain control - Tramadol, Tylenol and Ibuprofen ordered. - Without [place], has improved symptoms Hemorrhoids - Flare due to straining to have BM - Advsied to continue stool softeners - Topical therapy ordered Disposition: Stable, Patient's family is resistant to discharge. Will contact General Surgery for pain control recommendations in preparation of discharge planning. <Jaya Bauman - Last Filed: 03/04/18 08:19> Attending Addendum - Attending Addendum Date/Time: 03/04/18 2819 I personally evaluated the patient and discussed the management with Dr. Bauman. I agree with the History, Examination, Assessment and Plan documented above with any addition or exceptions noted below. The patient was cleared by surgery to go home today however patient and family are hesitant to discharge with him not eating much and feeling worse today. He is have good days and bad days per daughter. Dr. Lai recommended possible anesthesia consult for a celiac block. Will try to arrange. Will also consult palliative to help us discuss disease course with patient and family. We had multiple conversations regarding expectations with his Stage IV cancer diagnosis but there may still be some confusion. <Nidia Diane - Last Filed: 03/04/18 16:11>
[2018-03-04] MEDS: Ibuprofen 600 MG TAB PO PRN ×3 (08:14→21:37)
[2018-03-04] MEDS: Enoxaparin Sodium 40 MG/0.4 ML SYRINGE SC SCH (08:15)
[2018-03-04] MEDS: Polyethylene Glycol 3350 17 GM Packet PO SCH ×2 (08:15→21:37)
[2018-03-04 12:35] VITALS: BMI 25.7
[2018-03-04] MEDS ORDERED: fentaNYL 50 mcg/hour Patch TD SCH (21:00)
--- NOTE | 2018-03-04 22:18 | PRG ---
DATE OF SERVICE: 03/04/2018 SUBJECTIVE: Franco Ng is doing well today. He is still having pain. He is tolerating his diet. He has had liquid stools. He is having an occasional nausea. He is having quite a bit of pain in his upper abdomen. OBJECTIVE: VITAL SIGNS: Temperature 97.8 degrees, heart rate 81, blood pressure 111/74. LUNGS: Clear to auscultation. CARDIAC: Regular rate and rhythm without murmur or gallop. ABDOMEN: Soft, nontender. Surgical wounds look good. LABORATORY DATA: None today. ASSESSMENT AND PLAN: Stage IV colon cancer with nonresectable liver metastasis. His pain is probabl y secondary to that. The patient can be discharged at any time from my standpoint. I talked to the patient's daughter and the patient today regarding his poor prognosis and suggested that they conside r DNR status. I have talked to Family Practice about calling anesthesia to see if a celiac block pravin ht be appropriate to help with some of his upper abdominal pain. The patient could have palliative c hemotherapy with Oncology in the future, but currently he will need to recover from his surgery. The patient should minimize his narcotics, but takes them as necessary for pain, fentanyl patch may be i n order and we will start that 75 mcg every 3 days.
[2018-03-05] MEDS: Ibuprofen 600 MG TAB PO PRN ×2 (03:56→10:00)
[2018-03-05] MEDS: Metoclopramide HCl 10 MG/2 ML VIAL IVP SCH ×2 (06:18→14:50)
--- NOTE | 2018-03-05 06:33 | PDOC.FM ---
- Subjective Subjective: 57 yo male seen this AM. Patient overall feels improved. He states that his nausea is better, but pain is still present. Family is very resistant to going home today even after speaking to Palliative Care. Patient and family would like to speak to Anesthesia regarding celiac block today. Patient was up and walking 5 blocks yesterday. Patient has only had small watery BMs. No vomiting or fevers. No other complaints. - Objective Vital Signs & Weight: Vital Signs (12 hours) Temp Pulse Resp BP Pulse Ox 03/05/18 04:00 97.5 F L 77 16 102/72 94 L 03/04/18 20:00 98.1 F 82 18 108/70 96 Weight Admit Weight 76.929 kg Weight 76.929 kg I&O: 03/03/18 03/04/18 03/05/18 06:59 06:59 06:59 Intake Total 1660 800 450 Balance 1660 800 450 Result Diagrams: 03/03/18 05:16 03/02/18 17:08 <Jaya Bauman - Last Filed: 03/05/18 09:12> - Objective Vital Signs & Weight: Vital Signs (12 hours) Temp Pulse Resp BP BP Pulse Ox 03/05/18 08:35 98.0 F 69 18 03/05/18 08:20 98.0 F 69 18 98/62 95 03/05/18 04:00 97.5 F L 77 16 102/72 94 L Weight Admit Weight 76.929 kg Weight 76.929 kg I&O: 03/04/18 03/05/18 03/06/18 06:59 06:59 06:59 Intake Total 800 1210 Output Total 625 Balance 800 585 Result Diagrams: 03/03/18 05:16 03/02/18 17:08 <Nidia Diane - Last Filed: 03/05/18 10:21> Phys Exam - Physical Examination Constitutional: NAD HEENT: PERRLA, moist MMs Neck: no nodes Respiratory: no wheezing, clear to auscultation bilateral Cardiovascular: RRR, no significant murmur Gastrointestinal: soft, no distention, positive bowel sounds diffusely tender. Incisions clean dry and intact Musculoskeletal: no edema, pulses present Neurological: non-focal, normal sensation, moves all 4 limbs Lymphatic: no nodes Psychiatric: normal affect, A&O x 3 Skin: no rash <Jaya Bauman - Last Filed: 03/05/18 09:12> Dx/Plan (1) Adenocarcinoma of colon Code(s): C18.9 - MALIGNANT NEOPLASM OF COLON, UNSPECIFIED Status: Acute (2) Colonic mass Code(s): K63.9 - DISEASE OF INTESTINE, UNSPECIFIED Status: Acute (3) Liver metastasis Code(s): C78.7 - SECONDARY MALIG NEOPLASM OF LIVER AND INTRAHEPATIC BILE DUCT Status: Acute (4) Normocytic anemia Code(s): D64.9 - ANEMIA, UNSPECIFIED Status: Acute (5) Nausea & vomiting Code(s): R11.2 - NAUSEA WITH VOMITING, UNSPECIFIED Status: Acute (6) Hemorrhoids Code(s): K64.9 - UNSPECIFIED HEMORRHOIDS Status: Acute - Plan Plan: Colonic mass - Pathology reveals Adenocarcinoma - s/p resection, POD 10. - General Surgery started [place] /, but patient doesn't tolerate - Increased Ibuprofen regimen with improvement. - AFP WNL (2.2), CEA is markedly elevated at 255 - GI following case - Onc has been consulted and is planning on out patient management after recovery from surgery. Pt will stay in town for treatment - CM has been consulted for help with meds in outpt setting - Currently tolerating GI soft diet. Tolerating well - small BMs and passing gas. - General Surgery ready for discharge - Pain control biggest issue. Will try to consult Anesthesia for possible celiac block. - Contacted Anesthesia on 03/04 for Celiac Block. Contacted again on 03/05 and informed that no available anesthesiologist available is capable of block. Hepatic mass - likely mets from primary colon cancer - GI/Onc consulted as above Normocytic anemia - Improved and stabilized - Outpatient monitoring recommended Nausea and Vomiting - Likely due to [place] use - Related to pain control - Tramadol, Tylenol and Ibuprofen ordered. - Without [place], has improved symptoms Hemorrhoids - Flare due to straining to have BM - Advsied to continue stool softeners - Topical therapy ordered Disposition: Stable, Patient's family is resistant to discharge. Will continue to assistant counsel family and improve symptom control. <Jaya Bauman - Last Filed: 03/05/18 09:12> Attending Addendum - Attending Addendum Date/Time: 03/05/18 1018 I personally evaluated the patient and discussed the management with Dr. Bauman. I agree with the History, Examination, Assessment and Plan documented above with any addition or exceptions noted below. The patient has met with palliative care team. We contacted anesthesia yesterday and today and their is nobody available to do a celiac block. Fentanyl patch was added by Dr. Lai but pt has tried this yet. He did ambulate multiple times yesterday. He is ready for discharge. We have had multiple conversations with the family and pt regarding his clinical course, expectations following surgery, expectations regarding cancer diagnosis and pain management. He is not getting any medication in the hospital that cannot be taken at home. Pt will have good days and bad days. He has multiple meds for pain should he choose to use them. We will get f/u information for oncology. He is stable for discharge. <Nidia Diane - Last Filed: 03/05/18 10:21>
[2018-03-05 08:20] VITALS: BP 98/62; TEMP 98
[2018-03-05] MEDS: Enoxaparin Sodium 40 MG/0.4 ML SYRINGE SC SCH (08:41)
[2018-03-05] MEDS: Polyethylene Glycol 3350 17 GM Packet PO SCH (08:41)
--- NOTE | 2018-03-05 12:22 | PDOC.EVN ---
Event Note - Event Note Event Note: I had extensive conversation with patient and family. Patient and family are very resistant to going home. It was explained thoroughly that he has no medical need of hospitalization and that he was not receiving care that could not be done at home. Patient's family have been given contact information for Palliative Care, General Surgery, Oncology, [facility], and Gastroenterology. Patient's family were initially upset about having to leave the hospital and the stress involved with leaving. They have been counseled on what to expect on discharge and common post op symptoms. Patient was also counseled on how severe his diagnosis is and how returning to his normal baseline prior to this illness may never happen. Patient's daughter expressed understanding. Patient is also counseled on return to ED precautions. I wished them the best of luck and told them to contact us with anything that we can help with. Otherwise they will be following up with General Surgery, Gastroenterology, and Oncology.
--- NOTE | 2018-03-05 13:49 | PRG ---
DATE OF SERVICE: 03/05/2018 SUBJECTIVE: Mr. Franco Ng is doing better. He is managing his pain with ibuprofen and Tylenol a nd Ultram. I did prescribe fentanyl yesterday, but he refused that, he did not want to suffer consti pation. He is still having some upper abdominal pain and I think that is mostly due for his liver me tastasis burden. I have talked to them yesterday regarding code status consideration. Today, he has been sent home with [id number] oral analgesics and follow up in my office in 2-3 weeks and fol low up with Oncology as an outpatient. I have reiterated to the family that followup is occluded in the surgery and no additional cost will be incurred. Overall, prognosis is poor with stage IV colon cancer with diffuse hepatic metastasis. He does have a MediPort for chemotherapy, should he like to follow that.
--- NOTE | 2018-03-05 22:04 | DIS-2 ---
DATE OF ADMISSION: 02/23/2018 DATE OF DISCHARGE: 03/05/2018 ADMITTING ATTENDING: Dr. Suarez. DISCHARGE ATTENDING: Dr. Diane. RESIDENT: Dr. Bauman. CONSULTS: 1. Gastroenterology, Dr. Grier. 2. General surgery, Dr. Lai. 3. Oncology, Dr. Modi. 4. Case management. 5. Palliative care. PROCEDURES: 1. On 02/21/2018, the patient underwent a chest x-ray that showed no acute findings. 2. On 02/21/2018, the patient underwent an abdominal ultrasound that showed multiple hepatic masses, better interrogation with liver mass protocol CT is recommended. 3. On 02/21/2018, the patient underwent an abdominal pelvis CT that showed multifocal hepatic masses worrisome for metastatic until proven otherwise. Colon cancer involving the mid transverse colon wi th evidence of probable apple core lesion. There is induration of the adjacent fat with lymphadenopa thy suggesting metastatic disease. 4. On 02/22/2018, the patient underwent a colonoscopy with Dr. Vargas, Gastroenterology, that showed a large circumferential transverse colon mass, likely malignant, status post biopsy. 5. On 02/23/2018, the patient underwent a chest x-ray that showed left subclavian implantable vascul ar access port placement without evidence of pneumothorax. Pneumoperitoneum explained by history of abdominal surgery today. 6. Left lower lobe airspace densities probably atelectasis, although aspiration can also had this ap pearance. 7. On 02/23/2018, the patient underwent a laparoscopic mobilization of the right colon. Splenic fle xure with laparoscopic transverse colectomy and primary anastomosis staple. Left subclavian vein Med iPort with fluoroscopy by Dr. Lai. 8. On 02/28/2018, the patient underwent an abdominal pelvis CT that showed postoperative change in t he transverse colon, no acute intra-abdominal process is identified. Small bilateral pleural effusio ns, bibasilar atelectasis, diffuse liver metastasis again noted. 9. On 03/03/2018, the patient underwent acute abdominal series that showed bilateral atelectasis, no nobstructive bowel gas pattern around the density of the right perihilar region, possibility of under lying mass or adenopathy is not excluded. This may be further assessed with CT of the thorax. PRIMARY DIAGNOSES: 1. Adenocarcinoma of colon with metastasis, status post partial colectomy. 2. Liver metastasis. 3. Normocytic anemia. 4. Nausea and vomiting. 5. Hemorrhoids. DISCHARGE MEDICATIONS: 1. Acetaminophen 1000 mg p.o. q.6 hours. 2. Ibuprofen 600 mg p.o. q.6 hours. 3. Tramadol 50 mg p.o. q.6 hours p.r.n. DISCONTINUED MEDICATIONS: None. HISTORY OF PRESENT ILLNESS AND HOSPITAL COURSE: A 57-year-old male with no past medical history, who presents with complaint of chest pain and a stomachache. The patient states his chest pain started about one day ago. He states the pain was in the center of his chest and sharp in nature. He denies any radiation of the pain. He also denies shortness of breath, nausea, vomiting, headache and perip heral numbness or tingling. In regards to his abdominal pain, he notes that the pain has been for 1- 2 months, diffusely aching without radiation. He denies any change in bowel habits, early satiety, b loody or black stools, constipation or diarrhea. He denies any family history of cancers. He has ne deann been screened for colon cancer. During the hospitalization, the patient was found to have likely metastatic disease to his liver. He was also found to have a suspected primary lesion of his transverse colon. The patient underwent a biopsy by Dr. Domingo Vargas that showed a surgical specimen of adenocarcinoma. The patient then underwe nt a partial colectomy with Dr. Lai that showed a biopsy of invasive adenocarcinoma poorly differe ntiated with negative margins. The patient also had 5 pericolonic nodes biopsied that were negative for metastatic carcinoma. The patient has notable lab values on the date of admission, hemoglobin of 12.2, decreased down to 8.9 and then increased back to 9.5 on 03/03/2018. The patient had a CEA khanh t was positive at 255.16. A tumor marker AFP that was 2.2. His alkaline phosphatase was 207 and 197 . All other BMP labs are unremarkable. He had an unremarkable urinalysis and he did have a positive fecal occult blood. The patient underwent surgery with Dr. Lai on 02/23/2018. The patient has had a slow recovery fro m that, complaining of abdominal pain as well as nausea. The patient was initially given morphine an d [place] for pain control; however, he could not tolerate that from the nausea and dizziness that he e xperienced. The patient was then decreased down to tramadol, he could not tolerate that at all eithe r. The patient was given an option of ibuprofen and Tylenol, which he remained with that, continue t o control his symptoms. The patient was advised that possibility of a celiac block with anesthesia. However, no anesthesiologist was available during the requested time to complete this procedure. Th e patient was also given the option of a fentanyl patch for pain control, but he had refused that. T he patient did begin to have small bowel movements and was passing gas in the entire hospitalization without problem. The patient's family was very resistant to going home with fear of what would happe n when they got home and complications. Extensive amount of time was taken to ensure them and counse led them on signs and symptoms of worsening disease or return precautions to the ED. The patient was then agreeable to going home with the support of his family. Otherwise, the patient had no other co mplications during his hospitalization. He was consulted with palliative care, who will provide reso urces for him as an outpatient. This patient is not a [place] citizen and he is uninsured and does not al[place] ve any primary care followup. The patient was given the contact information for Dr. Lai his gener al surgeon, Dr. Modi an oncologist and Dr. Grier a sales team recruiter to follow up after the hospi talization. The patient was also given the [facility] information to establish care and t o coordinate his care between specialties. Otherwise, the patient had no other complications of this hospitalization. All questions were answered and he was discharged in appropriate condition. DISPOSITION: Guarded. DISCHARGE INSTRUCTIONS: 1. Location: He will be discharged home under the care of his family. 2. Diet will be as tolerated with no restrictions. 3. Activity will be with activity restrictions. No lifting over 25 pounds for 6 weeks. 4. Follow up will be with Dr. Lai in General Surgery in 2-3 weeks, Dr. Modi in [address] Grier in 1 week as well as the [facility] to establish for a primary care provider.
== END 2018-03-05 15:15 | disposition home or self-care (01) | DRG 330 ==
LOC: ERS 11:47 → OBSVTOIN 18:08 → 2SW 18:08 → SURG A 02-23 16:34
PROVIDERS: ADMIT Family Medicine; ATTEND Family Medicine
PROC: 0DBL8ZX Excision of Transverse Colon, Via Natural or Artificial Opening Endoscopic, Diagnostic (ICD-10-PCS; 2018-02-22)
PROC: 0DTL4ZZ Resection of Transverse Colon, Percutaneous Endoscopic Approach (ICD-10-PCS; principal; 2018-02-23)
PROC: 07BC4ZX Excision of Pelvis Lymphatic, Percutaneous Endoscopic Approach, Diagnostic (ICD-10-PCS; 2018-02-23)
PROC: 05H633Z Insertion of Infusion Device into Left Subclavian Vein, Percutaneous Approach (ICD-10-PCS; 2018-02-23)
PROC: B5171ZA Fluoroscopy of Left Subclavian Vein using Low Osmolar Contrast, Guidance (ICD-10-PCS; 2018-02-23)
DX: C18.4 Malignant neoplasm of transverse colon (principal); C78.7 Secondary malignant neoplasm of liver and intrahepatic bile duct; K56.7 Ileus, unspecified; R11.2 Nausea with vomiting, unspecified; K64.9 Unspecified hemorrhoids; R07.89 Other chest pain; D63.0 Anemia in neoplastic disease; T40.2X5A Adverse effect of other opioids, initial encounter; Y92.230 Patient room in hospital as the place of occurrence of the external cause
CPT/HCPCS: 36415; 36416; 71045; 74022; 74177; 76705; 80048; 80053; 80061; 81003; 82105; 82274; 82378; 82550; 82553; 83690; 84484; 85025; 88305; 88309; 93005; 96361; 96374; A4216; C1788; C9113; J0131; J0670; J1100; J1642; J1650; J1885; J2001; J2185; J2250; J2270; J2405; J2704; J2765; J3010; Q0162

== ENCOUNTER 2018-03-22 08:39 | Day surgery (SDC) | payer MEDICAID ==
[2018-03-22] MEDS ORDERED: Sodium Chloride 0.9% 30 ML ONE (08:51)
[2018-03-22] MEDS ORDERED: Leucovorin Calcium 50 MG in Dextrose 5% in Water 50 ML IVPB SCH (09:15)
[2018-03-22] MEDS ORDERED: BEVACIZUMAB IVPB SCH (09:15)
[2018-03-22] MEDS ORDERED: Fluorouracil 700 MG in Dextrose 5% in Water 50 ML IVPB SCH (09:15)
[2018-03-22] MEDS ORDERED: SODIUM CHLORIDE 0.9% IVPB SCH (09:15)
[2018-03-22] MEDS ORDERED: Dexamethasone 10 MG, Ondansetron 2MG/ML MDV 10 MG in Sodium Chloride 0.9% 50 ML IVPB SCH (09:15)
[2018-03-22 09:24] VITALS: BP 106/65; TEMP 98
== END 2018-03-22 14:53 | disposition home or self-care (01) ==
LOC: ONC/OP 08:39
PROVIDERS: ATTEND Internal Medicine Hematology & Oncology
DX: Z51.11 Encounter for antineoplastic chemotherapy (principal); C18.4 Malignant neoplasm of transverse colon; C78.7 Secondary malignant neoplasm of liver and intrahepatic bile duct
CPT/HCPCS: 96367; 96413; 96415; 96417; A4216; J0640; J1100; J2405; J7050; J7070; J9035; J9190; J9263

== ENCOUNTER 2018-04-04 09:34 | Inpatient (IN) | payer MEDICAID, SELFPAY ==
[2018-04-04 10:23] LABS: #Basophils 0.1 thou/uL (0.0-0.2); #Eosinphils 0.2 thou/uL (0.0-0.7); #Monocytes 1.3 thou/uL (0.11-0.59); #Neutrophils 4.9 thou/uL (1.40-6.50); %Basophils 0.8 % (0.0-1.0); %Eosinophils 1.6 % (0.0-10.0); %Lymphocytes 32.2 % (21.0-51.0); %Monocytes 13.5 % (0.0-10.0); %Neutrophils 51.9 % (42.0-75.0); Hemoglobin 11.5 g/dL (14.0-18.0); Mean Corpuscular HGB CONC 31.9 g/dL (32.0-36.0); Mean Corpuscular Hemoglobin 25.7 pg (27.0-31.0); Mean Corpuscular Volume 80.4 fL (78.0-98.0); Mean Platelet Volume 7.2 fL (7.4-10.4); Platelet Count 559 thou/uL (130-400); RBC Distribution Width 14.3 % (11.5-14.5); Red Blood Cell (RBC) Count 4.48 mill/uL (4.70-6.10); White Blood Cell (WBC) Count 9.4 thou/uL (4.8-10.8)
[2018-04-04 10:38] LABS: ALT (SGPT) 43 U/L (8-55); AST (SGOT) 44 U/L (5-34); Albumin 3.4 g/dL (3.5-5.0); Alkaline Phosphatase 316 U/L (40-150); Anion Gap 15 mmol/L (10-20); BUN (Urea Nitrogen) 15 mg/dL (8.4-25.7); Bilirubin, Total 0.6 mg/dL (0.2-1.2); Calc. Creatinine Clearance 0 mL/min (70-130); Calcium 9.3 mg/dL (7.8-10.44); Carbon Dioxide 21 mmol/L (22-29); Chloride 100 mmol/L (98-107); Estimated GFR-MDRD 81; Globulin 4.4 g/dL (2.4-3.5); Glucose 142 mg/dL (70-105); Potassium 4.4 mmol/L (3.5-5.1); Protein, Total 7.8 g/dL (6.0-8.3); Sodium 132 mmol/L (136-145)
[2018-04-04] MEDS ORDERED: levETIRAcetam 500 MG TAB PO SCH (11:00)
[2018-04-04] MEDS ORDERED: MEROPENEM 1 GM/50 ML 1 GM in Premix Bag 1 BAG IVPB SCH (11:00)
[2018-04-04] MEDS ORDERED: Ondansetron HCl/PF 4 MG/2 ML Vial IVP PRN (11:09)
[2018-04-04] MEDS ORDERED: Ondansetron ODT 4 MG TAB PO PRN (11:09)
[2018-04-04] MEDS ORDERED: Ibuprofen 600 MG TAB PO PRN (11:13)
[2018-04-04] MEDS ORDERED: traMADol HCl 50 MG TAB PO PRN ×2 (11:13)
[2018-04-04] MEDS ORDERED: Acetaminophen 500 MG TAB PO PRN (11:13)
--- NOTE | 2018-04-04 11:44 | HP ---
HISTORY OF PRESENT ILLNESS: Franco Ng is a 58-year-old male patient with metastatic colon cancer , undergoing infusion therapy through a left subclavian MediPort. Patient underwent palliative, 01/29, laparoscopic immobilization of the right colon and segmental resection of the transverse colo n with anastomosis. He did very well at that time, postoperatively recovered and resumed and started chemotherapy for palliation. The patient apparently reported to the emergency room 3 days ago with an incisional hernia. CAT scan obtained verifying that. It was documented that this was reducible, but returned again. There was a note at that time by the emergency room physician description that t here were some redness and warmth around the incision, although the family states there was no rednes s. Today, the patient reports drainage of stool from the upper midline incision from the colon extra ction site. CAT scan has been ordered and pending. He is hemodynamically stable. HIS abdomen is so ft and nontender. White count 9, hemoglobin 11.5. ALLERGIES: None. TOBACCO: None. ALCOHOL: None. MEDICATIONS: Chemotherapy infusion. PAST SURGICAL HISTORY: Segmental resection, transverse colon, for metastatic colon cancer. PAST MEDICAL HISTORY: Metastatic colon cancer with diffuse hepatic metastasis. FAMILY HISTORY/REVIEW OF SYSTEMS: Noncontributory and unchanged. PHYSICAL EXAMINATION: VITAL SIGNS: Blood pressure 120/70, heart rate 72, respiratory rate 18, afebrile. LUNGS: Clear to auscultation. CARDIAC: Regular rate and rhythm without murmur, rub, or gallop. ABDOMEN: Soft. Nondistended. Bowel sounds present in the midline abdomen at the surgical site. Th e wound is open and there is stool draining. There was a palpable fascial defect. EXTREMITIES: Unremarkable. LABORATORY DATA: White count 9, hemoglobin 11.5. Comprehensive metabolic profile normal. Lactic ac id 2.9. 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 It appears he had s ome fascial dehiscence according to the CAT scan we presented 2-3 days ago. Currently, the remainder of his abdomen soft. At this time, the small colostomy can be managed with an ostomy bag. We will initiate antibiotics and observe him over the next 24-48 hours to see how he does. It is likely he w ill be able to be discharged home with ostomy bag management of this problem. At this point, he does not need urgent surgical intervention.
[2018-04-04] MEDS ORDERED: ISOVUE-370 76%-LOCM 1 ML ONE (12:57)
[2018-04-04] MEDS ORDERED: Iopamidol 370 76% 50 ML VIAL FS ONE (12:57)
--- NOTE | 2018-04-04 13:14 | CT ---
CT ABDOMEN AND PELVIS WITH ORAL AND IV CONTRAST: Date: 04/04/18 HISTORY: Abdominal pain, still draining from incision site. Patient has history of colon cancer and colon rese ction in January 2018 and hernia repair a few days ago. FINDINGS: Comparison made with exam of 04/02/18. There are mild dependent changes in the lung bases. Numerous hepatic metastases are again seen. No ca lcified gallstones are identified. The spleen, pancreas, adrenal glands, and kidneys are normal. Bowel anastomosis in the ventral mid abdomen is again seen. There is an anterior abdominal wall defec t in the mid abdomen, new since the previous study. A tiny amount of air in the anterior abdominal wa ll close to the anastomotic suture may either represent air within a small herniated portion of bowel or postop air in the anterior abdominal wall. The small bowel loops are not abnormally dilated. No f ree air or free fluid is seen in the abdomen or pelvis. IMPRESSION: Anterior abdominal wall defect and postop change since 04/02/18. POS: NATA
[2018-04-04] MEDS: Sodium Chloride 0.9% 1,000 ML IV SCH ×2 (13:30→21:00)
[2018-04-04 13:42] VITALS: BMI 25.5
[2018-04-04] MEDS: Piperacillin/Tazobactam 3.375 GM in Sodium Chloride 0.9% 100 ML IVPB SCH ×2 (13:57→18:16)
[2018-04-04 14:10] LABS: Lactic Acid 1.3 mmol/L (0.5-2.2)
[2018-04-04] MEDS ORDERED: Enoxaparin Sodium 40 MG/0.4 ML SYRINGE SC SCH (21:00)
[2018-04-04] MEDS ORDERED: Prevnar 13-Val Conj/PF 0.5 ML SYRINGE IM ONE (21:00)
[2018-04-04] MEDS: Famotidine 20 MG TAB PO SCH (21:01)
[2018-04-05] MEDS: Piperacillin/Tazobactam 3.375 GM in Sodium Chloride 0.9% 100 ML IVPB SCH ×3 (05:29→12:59)
[2018-04-05] MEDS: Sodium Chloride 0.9% 1,000 ML IV SCH (05:31)
[2018-04-05 06:22] LABS: ALT (SGPT) 30 U/L (8-55); AST (SGOT) 36 U/L (5-34); Albumin 2.7 g/dL (3.5-5.0); Alkaline Phosphatase 244 U/L (40-150); Anion Gap 14 mmol/L (10-20); BUN (Urea Nitrogen) 11 mg/dL (8.4-25.7); Bilirubin, Total 0.5 mg/dL (0.2-1.2); Calc. Creatinine Clearance 83 mL/min (70-130); Calcium 8.4 mg/dL (7.8-10.44); Carbon Dioxide 21 mmol/L (22-29); Chloride 105 mmol/L (98-107); Estimated GFR-MDRD 77; Globulin 3.5 g/dL (2.4-3.5); Glucose 82 mg/dL (70-105); Protein, Total 6.2 g/dL (6.0-8.3); Sodium 135 mmol/L (136-145)
[2018-04-05 06:34] LABS: Band 20 % (5-11); Eosinophils 8 % (0-10); Hemoglobin 9.7 g/dL (14.0-18.0); Lymphocytes 41 % (21-51); MDiff Complete? YES; Mean Corpuscular HGB CONC 31.9 g/dL (32.0-36.0); Mean Corpuscular Hemoglobin 25.7 pg (27.0-31.0); Mean Corpuscular Volume 80.6 fL (78.0-98.0); Mean Platelet Volume 7.2 fL (7.4-10.4); Monocytes 11 % (0-10); Neutrophil 20 % (42-75); PLT Morphology Comment Appears Increased; Platelet Count 517 thou/uL (130-400); RBC Distribution Width 14.2 % (11.5-14.5); Red Blood Cell (RBC) Count 3.77 mill/uL (4.70-6.10); White Blood Cell (WBC) Count 6.3 thou/uL (4.8-10.8)
[2018-04-05] MEDS: Famotidine 20 MG TAB PO SCH (08:38)
--- NOTE | 2018-04-05 13:36 | PRG ---
DATE OF SERVICE: 04/05/2018 SUBJECTIVE: Mr. Franco Ng is doing well today. He is tolerating his diet. Regular diet has bee n ordered. His colostomy bag over his anterior abdomen is controlling the colocutaneous fistula well . OBJECTIVE: VITAL SIGNS: He has remained afebrile, 98.4 degrees, 69, 107/68. LUNGS: Clear to auscultation. CARDIAC: Regular rate and rhythm without murmur or gallop. ABDOMEN: Soft, nontender, good bowel sounds. Ostomy bag in central abdomen colocutaneous fist ciro. Has stool in the ostomy bag. EXTREMITIES: Unremarkable. LABORATORY DATA: This morning, his white count is 6, hemoglobin 9.7. Basic metabolic profile is nor mal. ASSESSMENT AND PLAN: Colocutaneous fistula well controlled with colostomy bag. Surgical interventio n is not necessary. No evidence of infection. We will plan to sent him home with Augmentin 500 mg p .o. b.i.d. for 5 days more . We will arrange for him to see Wound Care in the next week as an o utpatient for colostomy care check and wound check. We will see him in my office in 2 weeks. He claire l follow up with Dr. Modi to resume his chemotherapy per Dr. Modi discretion.
--- NOTE | 2018-04-05 13:37 | DIS ---
DATE OF ADMISSION: 04/04/2018 DATE OF DISCHARGE: 04/05/2018 DISCHARGE DIAGNOSES: Colocutaneous fistula after colon resection, well controlled with a colostomy. CAT scan of abdomen and pelvis on admission, no intra-abdominal problems, localize colocutaneous fi stula with drainage in the midline from the area of the colon adjacent to the anastomosis. DISCHARGE MEDICATIONS: Augmentin 500 b.i.d. for 5 days, Ultram p.r.n. pain, ibuprofen and Tylenol as needed. FOLLOWUP: Follow up with Dr. Modi, follow up with outpatient Wound Care next week. Check colosto my care needs and supplies and wound, follow up with me in 2 weeks for the same. HISTORY: A 58-year-old male with metastatic colon cancer, diffuse hepatic mets nonresectable underwe nt palliative colon resection 6 weeks ago, laparoscopic, segmental transverse colon with anastomosis. He presented to the emergency room 2-3 days prior with a mass in his midline. Efforts to reduce th is were made by the ER physician. The patient then returns 2 days later with redness around this kalyani e site and draining stool from the wound. Repeat CAT scan revealed the same findings. Physical exam revealed a small disruption of the fascia through which stool was draining. Plan is to manage this nonoperatively with a colostomy bag. We will speak to Dr. Modi and he will resume or s chemotherapy. Follow up with me in 2 weeks. Follow up with Wound Care next week for colostomy car e instructions and wound care check.
[2018-04-05 15:57] VITALS: BP 115/73; TEMP 98.3
== END 2018-04-05 16:45 | disposition home or self-care (01) | DRG 394 ==
LOC: ERS 09:34 → SURG A 10:17
PROVIDERS: ADMIT Specialist; ATTEND Specialist
DX: K94.09 Other complications of colostomy (principal); C78.5 Secondary malignant neoplasm of large intestine and rectum
CPT/HCPCS: 36415; 74177; 80053; 83605; 85025; 87040; 96361; 96374; J2185; J2543; J7050

== ENCOUNTER 2018-05-03 12:29 | Day surgery (SDC) | payer OTHER ==
[2018-05-03] MEDS ORDERED: Sodium Chloride 0.9% 20 ML ONE (12:47)
[2018-05-03] MEDS ORDERED: [UNRECOGNIZED DRUG - OTHER] IVPB SCH (13:00)
[2018-05-03] MEDS ORDERED: ADMIXTURE FEE IVPB SCH (13:00)
[2018-05-03] MEDS ORDERED: Leucovorin Calcium 50 MG in Dextrose 5% in Water 50 ML IVPB SCH (13:00)
[2018-05-03] MEDS ORDERED: DEXAMETHASONE IVPB SCH (13:00)
[2018-05-03] MEDS ORDERED: ONDANSETRON IVPB SCH (13:00)
[2018-05-03 13:03] VITALS: BP 110/68; TEMP 98.9
[2018-05-03] MEDS ORDERED: Fluorouracil 700 MG in Dextrose 5% in Water 50 ML IVPB SCH (13:15)
[2018-05-03 13:45] LABS: Iron 19 ug/dL (65-175); Iron Binding Capacity, Total 226 mcg/dL (261-462)
== END 2018-05-03 16:54 | disposition home or self-care (01) ==
LOC: ONC/OP 12:29
PROVIDERS: ATTEND Internal Medicine Hematology & Oncology
DX: Z51.11 Encounter for antineoplastic chemotherapy (principal); C18.4 Malignant neoplasm of transverse colon
CPT/HCPCS: 82728; 83540; 83550; 96367; 96413; 96415; 96416; 96417; A4216; J0640; J1100; J2405; J7070; J9190; J9263

== ENCOUNTER 2018-05-05 14:54 | Inpatient (IN) | payer OTHER ==
[~2018-05-05 14:54] MED LIST: ISOVUE-370 76%-LOCM 1 ML ONE
[2018-05-05] MEDS ORDERED: Lactated Ringer's 1,000 ML IV SCH (15:15)
[2018-05-05] MEDS ORDERED: Metoclopramide HCl 10 MG/2 ML VIAL IVP SCH (15:15)
[2018-05-05] MEDS ORDERED: Ondansetron HCl/PF 4 MG/2 ML Vial IVP PRN (15:16)
[2018-05-05] MEDS ORDERED: Ondansetron ODT 8 MG TAB SL PRN (15:19)
[2018-05-05] MEDS ORDERED: Acetaminophen 1,000 MG in Premix Bag 1 BAG IVPB SCH (15:30)
[2018-05-05] MEDS ORDERED: Ketorolac Tromethamine 30 MG/ML VIAL IVP SCH (15:30)
[2018-05-05 15:56] LABS: Hemoglobin 8.4 g/dL (14.0-18.0); Mean Corpuscular HGB CONC 32.6 g/dL (32.0-36.0); Mean Corpuscular Hemoglobin 25.2 pg (27.0-31.0); Mean Corpuscular Volume 77.4 fL (78.0-98.0); Mean Platelet Volume 9.3 fL (7.4-10.4); Platelet Count 422 thou/uL (130-400); RBC Distribution Width 16.9 % (11.5-14.5); Red Blood Cell (RBC) Count 3.31 mill/uL (4.70-6.10); White Blood Cell (WBC) Count 11.5 thou/uL (4.8-10.8)
[2018-05-05 16:14] LABS: Anisocytosis SLIGHT = 6-15 cells (100X) (0-5/hpf); Band 8 % (5-11); Eosinophils 1 % (0-10); Hypochromia SLIGHT = 6-15 cells (100X) (0-5/hpf); Lymphocytes 14 % (21-51); MDiff Complete? YES; Microcytosis SLIGHT = 6-15 cells (100X) (0-5/hpf); Monocytes 1 % (0-10); Neutrophil 76 % (42-75); PLT Morphology Comment Appears Increased; Polychromasia SLIGHT = 2-3 cells (100X) (0-2/hpf)
[2018-05-05 16:43] VITALS: BMI 26.2
--- NOTE | 2018-05-05 17:52 | CT ---
CT ABDOMEN AND PELVIS WITH IV CONTRAST: 05/05/18 HISTORY: Colon cancer and abdominal pain. COMPARISON: 04/04/18. FINDINGS: There has been interval development of a tiny right pleural effusion with atelectasis at the right amaya ng base. Mild atelectasis is present at the left lung base. No discrete pulmonary nodule or mass is s een at either lung base. Numerous hypodense masses are again seen throughout the liver which do appear mildly progressed from the prior exam. The liver is enlarged measuring 26 cm in craniocaudal dimensions. The spleen, pancreas, bilateral adrenal glands, kidneys, urinary bladder, and opacified small bowel d emonstrate a normal CT appearance. Previously noted postsurgical changes in the region of the transverse colon are again seen. Previousl y noted midline defect in the soft tissues at the level of postsurgical changes has also improved and almost completely resolved, although small superficial wound is present with wound vac in place. A very small amount of free fluid is seen in the region of the right pericolic gutter as well as in t he right aspect of the pelvis. The hepatic IVC appears narrowed due to adjacent metastatic lesions, but this was also noted on the p rior exam. However, there is enhancement of the IVC inferior to this location. No lymphadenopathy is seen. There has been no other interval change. IMPRESSION: 1. Diffuse hepatic metastatic disease with multiple large hypodense masses seen throughout each lobe of the liver. Metastatic lesions do appear to have progressed when compared to the prior study. 2. Small amount of free fluid in the pelvis with interval development of a small right pleural e ffusion and associated atelectasis. 3. Postsurgical changes in the region of the transverse colon. The abdominal wall defect anterio r to the region of postsurgical changes has significantly improved although small defect does persist . 4. No enlarged lymph nodes are seen by CT size criteria. 5. No evidence of a bowel obstruction. 6. Narrowing of the hepatic IVC which is located between two hypodense metastatic lesions within the liver. This is overall similar to the prior exam. POS: FELICIANO
[2018-05-05 18:00] LABS: Albumin 2.6 g/dL (3.5-5.0)
[2018-05-05] MEDS ORDERED: Prevnar 13-Val Conj/PF 0.5 ML SYRINGE IM ONE (18:00)
[2018-05-05 18:01] LABS: Chloride 99 mmol/L (98-107); Sodium 129 mmol/L (136-145)
[2018-05-05 18:02] LABS: Calcium 8.3 mg/dL (7.8-10.44)
[2018-05-05 18:03] LABS: Glucose 99 mg/dL (70-105); Protein, Total 6.6 g/dL (6.0-8.3)
[2018-05-05 18:04] LABS: Anion Gap 13 mmol/L (10-20); Bilirubin, Total 1.3 mg/dL (0.2-1.2); Carbon Dioxide 21 mmol/L (22-29)
[2018-05-05 18:05] LABS: Alkaline Phosphatase 453 U/L (40-150)
[2018-05-05 18:06] LABS: Calc. Creatinine Clearance 114 mL/min (70-130); Estimated GFR-MDRD Greater than 90
[2018-05-05 18:07] LABS: BUN (Urea Nitrogen) 15 mg/dL (8.4-25.7)
[2018-05-05 18:08] LABS: ALT (SGPT) 68 U/L (8-55); AST (SGOT) 127 U/L (5-34)
[2018-05-05] MEDS ORDERED: Acetaminophen 500 MG TAB PO PRN (18:51)
[2018-05-05] MEDS ORDERED: Ibuprofen 600 MG TAB PO PRN (18:51)
[2018-05-05] MEDS ORDERED: traMADol HCl 50 MG TAB PO PRN ×2 (18:51)
[2018-05-05] MEDS ORDERED: Ondansetron ODT 8 MG TAB PO PRN (18:54)
[2018-05-05] MEDS ORDERED: Ondansetron ODT 4 MG TAB PO PRN (18:54)
[2018-05-05] MEDS ORDERED: Magnesium Citrate 300 ML BOT PO SCH (19:00)
--- NOTE | 2018-05-05 19:25 | HP ---
HISTORY OF PRESENT ILLNESS: Franco Ng is a 58-year-old male patient with a diffuse hepatic metas tasis from transverse colon cancer. The patient is followed with chemotherapy administered by Jewell núñez. He is unfunded, receiving charitable care. The patient underwent palliative on 02/23/2018, lapa roscopic colon resection with colo-colonic anastomosis. He did well postoperatively, but 6 weeks pos toperatively, he developed colocutaneous fistula. CAT scan obtained revealed stool drainage from mid line wound without intra-abdominal contamination or extravasation. The patient has been treated with a colostomy and initially had a significant amount of stool drainage from his colocutaneous fistula, but over time, this had diminished. I saw him last week and he had minimal output out of his colost amado. He was mainly having bowel movements per rectum/anus. The patient was seen in the Oncology cli merary two days ago, noted to have a low hemoglobin, low iron, and started on iron. He has been having increasing abdominal pain and nausea. He has had minimal output from his colocutaneous fistula and m ostly having bowel movements per anus, although has not had a bowel movement in the last 36 hours. T he patient presents to my office in distress. He has been admitted to the hospital with IV access to his MediPort, obtained a CT scan of abdomen and pelvis to see he has diffuse abdominal pain with vol untary guarding and generalized. His abdomen, however, is nondistended. He does not appear toxic. ALLERGIES: None. TOBACCO: None. ALCOHOL: None. MEDICATIONS: Chemotherapy infusion. PAST SURGICAL HISTORY: History of sigmoid resection transverse colon for metastatic colon cancer, da te noted above. PAST MEDICAL HISTORY: Metastatic colon cancer transverse status post palliative resection and anasto mosis with diffuse hepatic metastasis, colocutaneous fistula, abdominal pain. PHYSICAL EXAMINATION: VITAL SIGNS: 165 pounds, 66 inches, 126/70, 111, 98.6 degrees. HEAD, EARS, EYES, NOSE, AND THROAT: Unremarkable. LUNGS: Clear to auscultation. CARDIAC: Regular rate and rhythm without murmur or gallop. ABDOMEN: Soft and nondistended. Colocutaneous fistula present with minimal output. The wound is mo stly closed with a small opening. Abdomen is diffusely tender with voluntary guarding. Bowel sounds not present. EXTREMITIES: Unremarkable. No ankle edema. ASSESSMENT AND PLAN: 1. Abdominal pain, uncertain etiology. We will plan CT scan of abdomen and pelvis IV fluids e valuation. Recheck his labs. Further recommendations pending CAT scan. 2. Colocutaneous fistula closing. 3. Transverse colon cancer, metastatic, with diffuse hepatic metastasis undergoing chemotherap y.
[2018-05-05] MEDS ORDERED: Enoxaparin Sodium 40 MG/0.4 ML SYRINGE SC SCH (21:00)
[2018-05-05] MEDS ORDERED: Acetaminophen 1,000 MG in Premix Bag 1 BAG IVPB PRN (21:00)
[2018-05-05] MEDS ORDERED: Enoxaparin Sodium 30 MG/0.3 ML SYRINGE SC SCH (21:00)
[2018-05-05] MEDS: Polyethylene Glycol 3350 17 GM Packet PO SCH (21:06)
[2018-05-05] MEDS: Sodium Chloride 0.9% 1,000 ML IV SCH (23:32)
[2018-05-06 04:51] VITALS: TEMP 98.3
[2018-05-06 07:57] VITALS: BP 104/65
[2018-05-06] MEDS: Polyethylene Glycol 3350 17 GM Packet PO SCH (09:00)
[2018-05-06] MEDS: Sodium Chloride 0.9% 1,000 ML IV SCH (09:02)
--- NOTE | 2018-05-06 12:04 | PRG ---
DATE OF SERVICE: 05/06/2018 HISTORY OF PRESENT ILLNESS: Mr. Ng is doing well today. His abdominal pain is resolved. He is tolerating his diet. He is having bowel movements. CAT scan of abdomen and pelvis revealed moderat e constipation, but no acute process. His diet was started last night. His pain resolved after havi ng bowel movements after his contrast injection for his CAT scan. PHYSICAL EXAMINATION: LUNGS: Clear to auscultation. CARDIAC: Regular rate and rhythm without murmur or gallop. ABDOMEN: Soft, nontender. VITAL SIGNS: Temperature 98.3 degrees, 86, 104/65. The patient's CEA level last night was 1700. Liver function tests are elevated secondary to metastat ic disease. Bilirubin 1.3, AST 127, ALT 68, alkaline phosphatase 453. ASSESSMENT AND PLAN: 1. Abdominal pain secondary to constipation. He can take MiraLax twice a day, continue taking his i álvaro. Follow up with Oncology. 2. Metastatic colon cancer with progression of disease with markedly elevated CEA. Palliative chemo therapy outpatient in the next week and half per schedule. Plan discharge home today. 3. Colocutaneous fistula. He has a wound that is decreasing in size and almost healed. He has very little output. This could be managed with a stoma bag and/or wash daily with soap and water and jose lying a gauze dressing as most of his bowel movements are per anus now and not out the fistula.
--- NOTE | 2018-05-06 20:37 | DIS ---
DATE OF ADMISSION: 05/05/2018 DATE OF DISCHARGE: 05/06/2018 DISCHARGE DIAGNOSES: 1. Abdominal pain secondary to constipation. 2. Colocutaneous fistula healing with time, resolving. 3. Diffuse hepatic metastasis with progression of disease noted by elevated CA level of 1700 this ad mission from 700 last check. 4. Undergoing chemotherapy palliative, Dr. Modi do next week. HISTORY: A 58-year-old male with a metastatic transverse colon cancer with diffuse hepatic metastasi s, nonresectable. He underwent palliative laparoscopic segmental colon resection six weeks, complica yoly postop with colovesical fistula, which is now healing and most of his bowel movements are per dash s and there is very little stool output . Ostomy bag is applied for control. He could change t his to a gauze dressing whenever he wants. This hospitalization, he was admitted, hydrated, and unde rwent a CAT scan to evaluate his complaints of abdominal pain, nausea, and vomiting. CAT scan reveal ed no acute processes in the abdominal cavity just the known hepatic metastatic disease. He had mode rate constipation per my read. His abdominal pain resolved after having bowel movements from his ora l contrast. He was given MiraLax twice a day along with resumption of his home medications, Motrin a nd iron. Discharge hemoglobin 8.7 as it was a few days ago. Chronic anemia. Follow up with Dr. Mallory mancuso palliative chemotherapy to resume in the next week to week and a half.
== END 2018-05-06 12:38 | disposition home or self-care (01) | DRG 392 ==
LOC: ONC 14:54
PROVIDERS: ADMIT Specialist; ATTEND Specialist
DX: K59.09 Other constipation (principal); K63.2 Fistula of intestine; C18.4 Malignant neoplasm of transverse colon; C78.7 Secondary malignant neoplasm of liver and intrahepatic bile duct; Z93.3 Colostomy status
CPT/HCPCS: 74177; 80053; 82378; 85025; 86850; 86900; 86901; J0131; J1642; J1650; J1885; J2765

== ENCOUNTER 2018-05-18 12:07 | Day surgery (SDC) | payer OTHER ==
[2018-05-18] MEDS ORDERED: Fluorouracil 700 MG in Dextrose 5% in Water 50 ML IVPB SCH (12:30)
[2018-05-18] MEDS ORDERED: Leucovorin Calcium 50 MG, Admixture Fee 1 EACH in Dextrose 5% in Water 50 ML IVPB SCH (12:30)
[2018-05-18] MEDS ORDERED: Ondansetron 2MG/ML MDV 10 MG, Dexamethasone 10 MG, Admixture Fee 1 EACH in Sodium Chlor... IVP SCH (12:30)
[2018-05-18 13:59] VITALS: BP 105/70; TEMP 97.9
[2018-05-18] MEDS ORDERED: Sodium Chloride 0.9% 20 ML ONE (15:29)
== END 2018-05-18 16:37 | disposition home or self-care (01) ==
LOC: ONC/OP 12:07
PROVIDERS: ATTEND Internal Medicine Hematology & Oncology
DX: Z51.11 Encounter for antineoplastic chemotherapy (principal); C18.4 Malignant neoplasm of transverse colon
CPT/HCPCS: 96367; 96375; 96413; 96415; 96416; 96417; A4216; J0640; J1100; J2405; J7050; J7070; J9190; J9263

== ENCOUNTER 2018-06-01 12:18 | Day surgery (SDC) | payer OTHER, SELFPAY ==
[2018-06-01] MEDS ORDERED: Sodium Chloride 0.9% 20 ML ONE (12:27)
[2018-06-01] MEDS ORDERED: Dexamethasone 10 MG, Ondansetron 2MG/ML MDV 10 MG in Sodium Chloride 0.9% 50 ML IVPB SCH (12:30)
[2018-06-01] MEDS ORDERED: Fluorouracil 700 MG in Dextrose 5% in Water 50 ML IVPB SCH (12:30)
[2018-06-01] MEDS ORDERED: Leucovorin Calcium 50 MG in Dextrose 5% in Water 50 ML IVPB SCH (12:30)
[2018-06-01 13:33] VITALS: BP 114/64; TEMP 97.8
== END 2018-06-01 17:04 | disposition home or self-care (01) ==
LOC: ONC/OP 12:18
PROVIDERS: ATTEND Internal Medicine Hematology & Oncology
DX: Z51.11 Encounter for antineoplastic chemotherapy (principal); C18.4 Malignant neoplasm of transverse colon
CPT/HCPCS: 96367; 96375; 96413; 96415; 96416; 96417; A4216; J0640; J1100; J2405; J7050; J7070; J9190; J9263

== ENCOUNTER 2018-06-14 08:52 | Day surgery (SDC) | payer OTHER ==
[2018-06-14 09:14] VITALS: BP 93/55; TEMP 98.1
[2018-06-14] MEDS ORDERED: Leucovorin Calcium 50 MG in Dextrose 5% in Water 50 ML IVPB SCH (09:15)
[2018-06-14] MEDS ORDERED: Ondansetron HCl/PF 4 MG/2 ML Vial SLOW IVP SCH (09:15)
[2018-06-14] MEDS ORDERED: Fluorouracil 700 MG in Dextrose 5% in Water 50 ML IVPB SCH (09:15)
[2018-06-14] MEDS ORDERED: Dexamethasone 4 mg/ml Vial SLOW IVP SCH (09:15)
[2018-06-14] MEDS ORDERED: Sodium Chloride 0.9% 40 ML ONE (09:50)
== END 2018-06-14 13:40 | disposition home or self-care (01) ==
LOC: ONC/OP 08:52
PROVIDERS: ATTEND Internal Medicine Hematology & Oncology
DX: Z51.11 Encounter for antineoplastic chemotherapy (principal); C18.4 Malignant neoplasm of transverse colon
CPT/HCPCS: 90471; 90686; 96367; 96372; 96375; 96413; 96415; 96416; 96417; G0008; J0640; J1100; J2405; J7070; J9190; J9263

== ENCOUNTER 2018-06-26 23:20 | Emergency (ER) | payer OTHER, SELFPAY ==
[2018-06-27 00:23] LABS: Hemoglobin 9.4 g/dL (14.0-18.0); INR-International Normal Ratio 1.1; Mean Corpuscular Hemoglobin 24.3 pg (27.0-31.0); Mean Corpuscular Volume 78.6 fL (78.0-98.0); Mean Platelet Volume 10.5 fL (7.4-10.4); Platelet Count 211 thou/uL (130-400); Prothrombin Time 14.2 SEC (12.0-14.7); RBC Distribution Width 20.1 % (11.5-14.5); Red Blood Cell (RBC) Count 3.85 mill/uL (4.70-6.10); White Blood Cell (WBC) Count 6.8 thou/uL (4.8-10.8)
[2018-06-27 00:24] LABS: PTT 38.3 SEC (22.9-36.1)
[2018-06-27 00:35] LABS: Anion Gap 11 mmol/L (10-20); BUN (Urea Nitrogen) 15 mg/dL (8.4-25.7); Calc. Creatinine Clearance 0 mL/min (70-130); Calcium 8.8 mg/dL (7.8-10.44); Carbon Dioxide 24 mmol/L (22-29); Chloride 103 mmol/L (98-107); Estimated GFR-MDRD Greater than 90; Glucose 113 mg/dL (70-105); Potassium 3.9 mmol/L (3.5-5.1); Sodium 134 mmol/L (136-145)
[2018-06-27 00:39] LABS: Band 9 % (5-11); Lymphocytes 31 % (21-51); MDiff Complete? YES; Monocytes 16 % (0-10); Neutrophil 43 % (42-75)
[2018-06-27] MEDS ORDERED: Simethicone Chewable 80 MG TAB PO SCH (01:45)
== END 2018-06-27 01:48 | disposition home or self-care (01) ==
LOC: ERS 23:20
DX: K63.2 Fistula of intestine (principal)
CPT/HCPCS: 80048; 85025; 85610; 85730; 99284

== ENCOUNTER 2018-06-28 12:17 | Day surgery (SDC) | payer OTHER, SELFPAY ==
[2018-06-28] MEDS ORDERED: Fluorouracil 700 MG in Dextrose 5% in Water 50 ML IVPB SCH (12:30)
[2018-06-28] MEDS ORDERED: Leucovorin Calcium 50 MG in Dextrose 5% in Water 50 ML IVPB SCH (12:30)
[2018-06-28] MEDS ORDERED: Dexamethasone 10 MG in Sodium Chloride 0.9% 50 ML IVPB SCH (12:45)
[2018-06-28] MEDS ORDERED: Ondansetron HCl/PF 10 MG in Sodium Chloride 0.9% 50 ML IVPB SCH (12:45)
[2018-06-28] MEDS ORDERED: Sodium Chloride 0.9% 40 ML ONE (12:46)
[2018-06-28 12:56] VITALS: BP 99/61; TEMP 97.9
[2018-06-28] MEDS ORDERED: Ondansetron PF 4 MG/2 ML Vial SLOW IVP SCH (13:00)
[2018-06-28] MEDS ORDERED: Dexamethasone 10 MG/ML VIAL SLOW IVP SCH (13:00)
== END 2018-06-28 16:51 | disposition home or self-care (01) ==
LOC: ONC/OP 12:17
PROVIDERS: ATTEND Internal Medicine Hematology & Oncology
DX: Z51.11 Encounter for antineoplastic chemotherapy (principal); C18.4 Malignant neoplasm of transverse colon; C78.7 Secondary malignant neoplasm of liver and intrahepatic bile duct; Z90.49 Acquired absence of other specified parts of digestive tract
CPT/HCPCS: 96367; 96375; 96413; 96415; 96416; 96417; J0640; J1100; J2405; J7050; J7070; J9190; J9263

== ENCOUNTER 2018-07-12 11:59 | Day surgery (SDC) | payer OTHER ==
[2018-07-12] MEDS ORDERED: Sodium Chloride 0.9% 40 ML ONE (12:13)
[2018-07-12] MEDS ORDERED: Ondansetron PF 4 MG/2 ML Vial SLOW IVP SCH (12:15)
[2018-07-12] MEDS ORDERED: Dexamethasone 10 MG/ML VIAL SLOW IVP SCH (12:15)
[2018-07-12] MEDS ORDERED: Fluorouracil 700 MG in Dextrose 5% in Water 50 ML IVPB SCH (12:15)
[2018-07-12] MEDS ORDERED: Leucovorin Calcium 50 MG in Dextrose 5% in Water 50 ML IVPB SCH (12:15)
[2018-07-12 12:30] VITALS: BP 106/65; TEMP 98.9
== END 2018-07-12 16:18 | disposition home or self-care (01) ==
LOC: ONC/OP 11:59
PROVIDERS: ATTEND Internal Medicine Hematology & Oncology
DX: Z51.11 Encounter for antineoplastic chemotherapy (principal); C18.4 Malignant neoplasm of transverse colon
CPT/HCPCS: 96375; 96413; 96415; 96416; 96417; J0640; J1100; J2405; J7070; J9190; J9263

== ENCOUNTER 2018-09-22 14:02 | Inpatient (IN) | payer MEDICAID, SELFPAY ==
[2018-09-22 15:07] LABS: #Basophils 0.1 thou/uL (0.0-0.2); #Lymphocytes 3.3 thou/uL (1.20-3.40); #Monocytes 1.9 thou/uL (0.11-0.59); %Basophils 0.6 % (0.0-1.0); %Eosinophils 0.3 % (0.0-10.0); %Lymphocytes 20.2 % (21.0-51.0); %Monocytes 11.5 % (0.0-10.0); %Neutrophils 67.5 % (42.0-75.0); Hemoglobin 3.8 g/dL (14.0-18.0); Mean Corpuscular HGB CONC 28.9 g/dL (32.0-36.0); Mean Corpuscular Hemoglobin 26.3 pg (27.0-31.0); Mean Corpuscular Volume 91.1 fL (78.0-98.0); Mean Platelet Volume 8.7 fL (7.4-10.4); Platelet Count 337 thou/uL (130-400); RBC Distribution Width 20.1 % (11.5-14.5); Red Blood Cell (RBC) Count 1.44 mill/uL (4.70-6.10); White Blood Cell (WBC) Count 16.4 thou/uL (4.8-10.8)
[2018-09-22 15:10] LABS: INR-International Normal Ratio 1.3; PTT 33.8 SEC (22.9-36.1); Prothrombin Time 16.2 SEC (12.0-14.7)
[2018-09-22 15:22] LABS: Anion Gap 12 mmol/L (10-20); BUN (Urea Nitrogen) 25 mg/dL (8.4-25.7); Calc. Creatinine Clearance 0 mL/min (70-130); Calcium 7.6 mg/dL (7.8-10.44); Carbon Dioxide 21 mmol/L (22-29); Chloride 101 mmol/L (98-107); Estimated GFR-MDRD Greater than 90; Glucose 119 mg/dL (70-105); Potassium 4.3 mmol/L (3.5-5.1); Sodium 130 mmol/L (136-145)
[2018-09-22 15:34] LABS: Anisocytosis MODERATE=16-30 cells (100X) (0-5/hpf); Howell Jolly Bodies SLIGHT = 1-2 cells (100X) (None Seen); Hypochromia SLIGHT = 6-15 cells (100X) (0-5/hpf); MDiff Complete? YES; Ovalocytes SLIGHT = 2-5 cells (100X) (0-1/hpf); Platelet Morphology Comment Appears Adequate; Polychromasia MODERATE = 3-4 cells (100X) (0-2/hpf); Reflex for Review?? YES; Target Cells SLIGHT = 2-5 cells (100X) (0-1/hpf)
[2018-09-22] MEDS ORDERED: Loratadine 10 MG TAB PO PRN (15:58)
[2018-09-22] MEDS ORDERED: Ondansetron PF 4 MG/2 ML Vial IVP PRN (15:58)
[2018-09-22] MEDS ORDERED: Ondansetron ODT 4 MG TAB PO PRN (15:58)
[2018-09-22] MEDS ORDERED: Cepastat Lozenges 1 LOZ PO PRN (15:58)
[2018-09-22] MEDS ORDERED: Sodium Chloride 0.65% Nasal 44 ML BOT EA NARE PRN (15:58)
[2018-09-22] MEDS ORDERED: HYDROcodone/Acetaminophen 5/325 mg Tablet PO PRN (15:58)
[2018-09-22] MEDS ORDERED: Bisacodyl 10 MG SUPP PR PRN (15:58)
[2018-09-22] MEDS ORDERED: Eucerin (Mineral Oil/Petrolatum,White) 30 gm Jar TOP PRN (15:58)
[2018-09-22] MEDS ORDERED: Acetaminophen 325 MG TAB PO PRN (15:58)
[2018-09-22] MEDS ORDERED: Senokot S 8.6-50 MG TAB PO PRN (15:58)
[2018-09-22] MEDS ORDERED: hydrALAZINE 20 MG/ML VIAL SLOW IVP PRN (15:58)
[2018-09-22] MEDS ORDERED: Loperamide HCl 2 MG CAP PO PRN (15:58)
[2018-09-22] MEDS ORDERED: Zolpidem Tartrate 5 MG TAB PO PRN (15:58)
[2018-09-22] MEDS ORDERED: Diabetic Tussin 200 MG/10 ML UDCUP PO PRN (15:58)
[2018-09-22] MEDS ORDERED: Artificial Tear Sol 15 ML BOT EA EYE PRN (15:58)
[2018-09-22] MEDS ORDERED: Bisacodyl 5 MG TAB PO PRN (15:58)
--- NOTE | 2018-09-22 16:53 | HP ---
PRIMARY CARE PHYSICIAN: [facility] Call admission. REASON FOR ADMISSION: Severe symptomatic anemia. HISTORY OF PRESENT ILLNESS: A 58-year-old male, who is speaking Maltese only, who has underlying history of advanced invasive adenocarcinoma of colon, which was diagnosed in January 2018. The patient had a laparoscopic transverse colectomy. The patient has colon cancer, which is metastasized to liver. After diagnosis of metastatic colon cancer, the patient also underwent chemotherapy without any improvement and all chemotherapy was discontinued in June. The patient has healed surgical site, but he is draining blood and stool from that wound whenever he coughs. The patient has diffuse vague abdominal discomfort. He does not have any fever, but lately for last several days, he is getting more and more weak. He had most recently CT abdomen and pelvis done at [facility]. Today, the patient was brought to ER because he was getting more and more weak, fatigued, and tired. He has lower extremity edema, hemoglobin is found 3.8 and he has leukocytosis with left shift. He also has hyponatremia. He is pale appearing. He cannot speak Persian, but his daughter is present who provided most of the history. REVIEW OF SYSTEMS: CONSTITUTIONAL: Negative for weight loss or gain, ability to conduct usual activities. SKIN: Negative for rash, itching. EYES: Negative for double vision, pain. ENT/MOUTH: Negative for nose bleeding, neck stiffness, pain, tenderness. CARDIOVASCULAR: Negative for palpitations, dyspnea on exertion, orthopnea. RESPIRATORY: Negative for shortness of breath, wheezing, cough, hemoptysis, fever or night sweats. GASTROINTESTINAL: Negative for poor appetite, abdominal pain, heartburn, nausea, vomiting, constipation, or diarrhea. GENITOURINARY: Negative for urgency, frequency, dysuria, nocturia. MUSCULOSKELETAL: Negative for pain, swelling. NEUROLOGIC/PSYCHIATRIC: Negative for anxiety, depression. ALLERGY/IMMUNOLOGIC: Negative for skin rash, bleeding tendency. Please see my HPI for pertinent positive and negative. All other review of systems reviewed and negative except as mentioned in the HPI. PAST MEDICAL HISTORY: Invasive adenocarcinoma of colon with metastasis, status post chemotherapy and surgery. Last chemotherapy in June 2018. PAST SURGICAL HISTORY: Laparoscopic colon resection, right knee surgery, appendicectomy, MediPort placement, and history of central line placement. PAST PSYCHIATRIC HISTORY: Reviewed and negative. SOCIAL HISTORY: The patient lives at home with family. No history of tobacco, alcohol, or illicit drug abuse. FAMILY HISTORY: No family history of coronary artery disease, stroke, or cancer. ALLERGIES: NO KNOWN DRUG ALLERGIES. CURRENT HOME MEDICATIONS: The patient is not taking any specific medication at this point. He is trying to take [id number] medication for nonspecific pain. He denies any significant amount of NSAID use. EMERGENCY ROOM COURSE: The patient is getting blood transfusion. PHYSICAL EXAMINATION: VITAL SIGNS: Blood pressure 93/60, pulse 102, respiratory rate 17, temperature 98.5, and saturation 100% on room air. Weight 60 kg. GENERAL: The patient is currently frail, cachectic, pale, hypotensive. HEENT: Normocephalic and atraumatic. Eyes; pupils round, reactive to light. Conjunctiva pale. ENT; oropharynx within normal limits. Dry mucous membrane. Pale mucous membrane. No pharyngeal exudate or erythema. LUNGS: Clear to auscultation without any rhonchi or rales. CARDIAC: S1 and S2 regular. Slight tachycardia and hemic murmur noted. ABDOMEN: Distended. Wound noted in infraumbilical, which is draining material. Bowel sounds present. No peritoneal sign. No guarding. No rigidity. BACK: Unremarkable. No CVA tenderness. EXTREMITIES: Upper extremities; passive movement of all joints are normal. Lower extremities; bilateral lower extremity pitting edema. SKIN: Pale skin. HEMATOLOGIC: No lymphadenopathy. PSYCHIATRIC: Normal affect. SIGNIFICANT LABORATORY DATA: EKG showing sinus arrhythmia. CBC; WBC 16.4, hemoglobin 3.8, and platelet 337. INR 1.3. BMP; sodium 130, potassium 4.3, chloride 101, carbon dioxide 21, anion gap 12, BUN 25, creatinine 0.66, glucose 119, calcium 7.6. ASSESSMENT AND PLAN: 1. Severe symptomatic anemia due to chronic blood loss. We will check iron study. Gastroenterology will be consulted. Most likely related with blood loss from surgical site as well as colon cancer. The patient will need blood transfusion and will repeat CBC tomorrow. We will transfuse 2 units of blood. 2. Metastatic adenocarcinoma of colon, poorly differentiated, status post chemotherapy. We will consult Oncology. The patient's prognosis is poor. We will consult palliative care for goal of care. 3. Hyponatremia. We will send urine study with a sodium, creatinine, plasma osmolality, TSH, and random cortisol. We will give him NS at 100 mL/hour most likely related with his protein-calorie malnutrition. 4. Protein-calorie malnutrition, moderate to severe. The patient will need nutritional support, likely related with underlying advanced colon cancer. 5. Deep venous thrombosis prophylaxis. No Lovenox because of blood loss. GI prophylaxis. Pepcid 20 mg IV b.i.d. 6. Sepsis. The patient has leukocytosis and he has abdominal bloating. Underlying abdominal infection is suspected and that is why we will start Zosyn on p.r.n. basis. We will consult Dr. Lai as well. 7. Severe anemia. We will consult GI for their opinion. We will do blood culture and urine culture, and we will also get CT abdomen and pelvis for further evaluation. 8. Code status. The patient is full code. The patient's daughter is surrogate decision maker. Palliative care will be consulted for further goal of care. DISPOSITION PLAN: Based on clinical course, we are expecting the patient to stay in hospital more than 2 midnights. Plan of care discussed with the patient's daughter and patient in detail. Job ID: [id number]
[2018-09-22 17:00] LABS: Thyroid Stimulating Hormone 3.5467 uIU/mL (0.35-4.94)
[2018-09-22] MEDS: Sodium Chloride 0.9% 1,000 ML IV SCH (22:34)
[2018-09-22] MEDS: Piperacillin/Tazobactam 3.375 GM in Sodium Chloride 0.9% 100 ML IVPB SCH (22:34)
[2018-09-22 23:13] LABS: Bilirubin Negative (Negative); Blood, Urine Negative (Negative); Clarity CLEAR (Clear); Glucose, Urine (Dipstick) Negative (Negative); Leukocyte Negative (Negative); Nitrite Negative (Negative); Protein, Urine (Dipstick) Negative (Neg-Trace); Specific Gravity, Urine 1.021 (1.002-1.036); Urobilinogen 0.2 mg/dL (0.2-1.0)
[2018-09-22 23:23] LABS: Bacteria/HPF None Seen HPF (None Seen); Hyaline Casts/LPF 0-3 HYALINE CAST LPF (0-3 Hyaline); Pathc Cast-AUWi Flag 0.87 (0-2.49); Squamous Epithelial None Seen HPF (0-3); WBC/HPF 0-3 HPF (0-3)
[2018-09-22] MEDS: Famotidine/PF 20 mg/2ml Vial SLOW IVP SCH (23:31)
[2018-09-22 23:59] LABS: Osmolality, Urine 599 mOsm/kg (300-900)
[2018-09-23 00:18] LABS: Hemoglobin 5.7 g/dL (14.0-18.0)
[2018-09-23 00:18] LABS: Sodium, Urine 22 mmol/L (Not Available)
--- NOTE | 2018-09-23 00:35 | PDOC.EVN ---
Event Note - Event Note Event Note: RN called - Repeat Hb 5.7 Will order 1 more unit PRBC.
[2018-09-23] MEDS: Piperacillin/Tazobactam 3.375 GM in Sodium Chloride 0.9% 100 ML IVPB SCH ×5 (00:47→23:54)
[2018-09-23] MEDS: Sodium Chloride 0.9% 1,000 ML IV SCH (03:27)
[2018-09-23 06:24] LABS: #Eosinphils 0.1 thou/uL (0.0-0.7); #Lymphocytes 2.5 thou/uL (1.20-3.40); #Monocytes 1.9 thou/uL (0.11-0.59); #Neutrophils 10.4 thou/uL (1.40-6.50); %Basophils 0.2 % (0.0-1.0); %Eosinophils 0.5 % (0.0-10.0); %Lymphocytes 16.9 % (21.0-51.0); %Monocytes 12.4 % (0.0-10.0); %Neutrophils 69.9 % (42.0-75.0); Mean Corpuscular HGB CONC 32.3 g/dL (32.0-36.0); Mean Corpuscular Hemoglobin 28.8 pg (27.0-31.0); Mean Corpuscular Volume 89.1 fL (78.0-98.0); Platelet Count 254 thou/uL (130-400); RBC Distribution Width 16.3 % (11.5-14.5); Red Blood Cell (RBC) Count 2.44 mill/uL (4.70-6.10); White Blood Cell (WBC) Count 14.9 thou/uL (4.8-10.8)
[2018-09-23 06:50] LABS: ALT (SGPT) 33 U/L (8-55); AST (SGOT) 165 U/L (5-34); Albumin 2.1 g/dL (3.5-5.0); Alkaline Phosphatase 671 U/L (40-150); Anion Gap 11 mmol/L (10-20); BUN (Urea Nitrogen) 24 mg/dL (8.4-25.7); Bilirubin, Total 1.5 mg/dL (0.2-1.2); Calc. Creatinine Clearance 97 mL/min (70-130); Calcium 7.7 mg/dL (7.8-10.44); Carbon Dioxide 22 mmol/L (22-29); Chloride 104 mmol/L (98-107); Estimated GFR-MDRD Greater than 90; Globulin 4.1 g/dL (2.4-3.5); Glucose 91 mg/dL (70-105); Magnesium 1.8 mg/dL (1.6-2.6); Potassium 3.7 mmol/L (3.5-5.1); Protein, Total 6.2 g/dL (6.0-8.3); Sodium 133 mmol/L (136-145)
--- NOTE | 2018-09-23 11:12 | PDOC.PN ---
- Subjective Encounter Start Date: 09/23/18 Encounter Start Time: 08:45 Patient seen and examined. No new complaints. No overnight events - Objective Resuscitation Status - Order Detail: 09/22/18 15:27 Resuscitation Status Routine Resuscitation Status: FULL: Full Resuscitation MAR Reviewed: Yes Vital Signs & Weight: Vital Signs (12 hours) Temp Pulse Pulse Resp BP Pulse Ox 09/23/18 04:00 97.9 F 96 19 91/55 L 100 09/23/18 03:33 97.7 F 94 16 100/63 100 09/23/18 02:48 98 09/23/18 01:53 98.0 F 96 16 92/59 L 98 09/23/18 01:27 98.0 F 99 18 90/54 L 99 09/23/18 00:25 98.1 F 98 18 91/55 L 99 Weight Weight 134 lb 14.766 oz I&O: 09/22/18 09/23/18 09/24/18 06:59 06:59 06:59 Intake Total 2180 Output Total 400 Balance 1780 Result Diagrams: 09/23/18 05:30 09/23/18 05:30 Phys Exam - Physical Examination Constitutional: NAD HEENT: PERRLA, moist MMs, sclera anicteric Neck: no JVD, supple Respiratory: no wheezing, no rales, no rhonchi Cardiovascular: RRR, no significant murmur, no rub Gastrointestinal: soft, positive bowel sounds wound with dressing bloated Musculoskeletal: pulses present, edema present Neurological: non-focal, normal sensation Lymphatic: no nodes Psychiatric: normal affect, A&O x 3 Skin: no rash, normal turgor Dx/Plan (1) Anemia due to chronic blood loss Code(s): D50.0 - IRON DEFICIENCY ANEMIA SECONDARY TO BLOOD LOSS (CHRONIC) Status: Acute (2) Hyponatremia Code(s): E87.1 - HYPO-OSMOLALITY AND HYPONATREMIA Status: Acute (3) Leucocytosis Code(s): D72.829 - ELEVATED WHITE BLOOD CELL COUNT, UNSPECIFIED Status: Acute (4) Open wound with complication Code(s): T14.8XXA - OTHER INJURY OF UNSPECIFIED BODY REGION, INITIAL ENCOUNTER Status: Acute (5) Symptomatic anemia Code(s): D64.9 - ANEMIA, UNSPECIFIED Status: Acute (6) Metastatic colon cancer to liver Code(s): C18.9 - MALIGNANT NEOPLASM OF COLON, UNSPECIFIED; C78.7 - SECONDARY MALIG NEOPLASM OF LIVER AND INTRAHEPATIC BILE DUCT Status: Chronic (7) Protein-calorie malnutrition, moderate Code(s): E44.0 - MODERATE PROTEIN-CALORIE MALNUTRITION Status: Chronic - Plan cont current plan of care, plan discussed w/ family, continue antibiotics * give lasix * medication reviewed as below * symptomatic treatment * transfuse 1 unit prbc * dc ivf * discussed with family * await all consultants recommendation * continue empiric zosyn. Review of Systems - Review of Systems ENT: negative: Ear Pain, Ear Discharge, Nose Pain, Nose Discharge, Nose Congestion, Mouth Pain, Mouth Swelling, Throat Pain, Throat Swelling, Other Respiratory: negative: Cough, Dry, Shortness of Breath, Hemoptysis, SOB with Excertion, Pleuritic Pain, Sputum, Wheezing Cardiovascular: edema. negative: chest pain, palpitations, orthopnea, paroxysmal nocturnal dyspnea, light headedness, other Gastrointestinal: negative: Nausea, Vomiting, Abdominal Pain, Diarrhea, Constipation, Melena, Hematochezia, Other Genitourinary: negative: Dysuria, Frequency, Incontinence, Hematuria, Retention , Other Musculoskeletal: negative: Neck Pain, Shoulder Pain, Arm Pain, Back Pain, Hand Pain, Leg Pain, Foot Pain, Other Skin: negative: Rash, Lesions, , Bruising, Other - Medications/Allergies Allergies/Adverse Reactions: Allergies Allergy/AdvReac Type Severity Reaction Status Date / Time No Known Allergies Allergy Verified 09/22/18 23:58 Medications: Current Medications Acetaminophen (Tylenol) 650 mg PO Q4H PRN PRN Reason: Headache/Fever/Mild Pain (1-3) Hydrocodone Bitart/Acetaminophen ([place] 5/325) 1 tab PO Q4H PRN PRN Reason: Moderate Pain (4-6) Artificial Tears (Tears Renewed 15ml Bottle) 2 drop EA EYE PRN PRN PRN Reason: Dry Eyes Bisacodyl (Dulcolax) 10 mg PO DAILYPRN PRN PRN Reason: Constipation Bisacodyl (Dulcolax) 10 mg [place] DAILYPRN PRN PRN Reason: Constipation Famotidine (Pepcid) 20 mg SLOW IVP Q12HR DANDRE Last Admin: 09/22/18 23:31 Dose: Not Given Furosemide (Lasix) 20 mg SLOW IVP ONE [facility] Guaifenesin (Robitussin Sf) 200 mg PO Q4H PRN PRN Reason: Cough Hydralazine HCl (Apresoline) 10 mg SLOW IVP Q4H PRN PRN Reason: SBP > 180 and HR < 70 Piperacillin Sod/Tazobactam (Sod 3.375 gm/ Sodium Chloride) 100 mls @ 200 mls/ hr IVPB Q6HR [facility] Last Admin: 09/23/18 05:53 Dose: 100 mls Loperamide HCl (Imodium) 2 mg PO PRN PRN PRN Reason: Diarrhea/Loose Stools Loratadine (Claritin) 10 mg PO DAILYPRN PRN PRN Reason: Sinus Symptoms Mineral Oil/White Petrolatum (Eucerin Cream) 0 gm TOP BIDPRN PRN PRN Reason: Dry Skin Ondansetron HCl (Zofran Odt) 4 mg PO Q6H PRN PRN Reason: Nausea/Vomiting Ondansetron HCl (Zofran) 4 mg IVP Q6H PRN PRN Reason: Nausea/Vomiting Senna/Docusate Sodium (Senokot S) 2 tab PO BID PRN PRN Reason: Constipation Sodium Chloride ([place] Nasal [place] 0.65%) 0 ml EA NARE QIDPRN PRN PRN Reason: Nasal Congestion Sodium Chloride (Flush - Normal Saline) 10 ml IVF Q12HR [facility] Last Admin: 09/22/18 23:32 Dose: Not Given Sodium Chloride (Flush - Normal Saline) 10 ml IVF PRN PRN PRN Reason: Saline Flush Throat Lozenges (Cepastat Lozenges) 1 mindy PO Q2H PRN PRN Reason: Sore Throat Zolpidem Tartrate (Ambien) 5 mg PO HSPRN PRN PRN Reason: Insomnia
[2018-09-23] MEDS ORDERED: Furosemide 20 MG/2 ML VIAL SLOW IVP SCH (11:15)
[2018-09-23] MEDS: Famotidine/PF 20 mg/2ml Vial SLOW IVP SCH ×3 (12:58→22:40)
--- NOTE | 2018-09-23 15:41 | PRG ---
DATE OF SERVICE: 09/23/2018 SUBJECTIVE: Mr. Malave has returned with low hemoglobin, complaining of more blood per fistula, although that has improved now. OBJECTIVE: VITAL SIGNS: He is afebrile. Vital signs are stable now. ABDOMEN: He has a tense abdomen on exam, that is diffuse mildly tender. He has stool without blood coming from the fistula. DIAGNOSTIC DATA: CT scan from [facility], the report is reviewed, which does show ascites. ASSESSMENT: 1. Metastatic end-stage colon cancer, likely carcinomatosis and now underlying malignant ascites. 2. Anemia of chronic disease certainly made worse by his malignancy. I do not think this represents an unstable gastrointestinal bleed. PLAN: He is going down for ultrasound-guided paracentesis if possible. Hopefully that will give him some palliation. Agree with transfusion that will make him feel better. Hopefully be discharged within the next few days. Dr. York is going to be around for me this weekend as needed. Please call if any questions. Job ID: [id number]
--- NOTE | 2018-09-23 16:03 | ULT ---
LIMITED ABDOMINAL ULTRASOUND: History: Evaluation for ascites prior to possible paracentesis. FINDINGS: Real-time imaging of the four quadrants of the abdomen shows fairly minimal ascites without a truly a ccessible pocket. This was discussed with Dr. Topete and we will defer until more fluid is accumulated. IMPRESSION: Somewhat limited ascites for therapeutic relief of the patient. We can reassess the degree of ascites as distention increases. POS: [facility]
[2018-09-23 16:57] VITALS: BMI 21.1
--- NOTE | 2018-09-23 20:48 | CON ---
DATE OF CONSULTATION: REASON FOR CONSULTATION: Stage IV cancer. HISTORY OF PRESENT ILLNESS: Mr. Ng is a pleasant 58-year-old male, who is diagnosed with stage IV poorly differentiated invasive adenocarcinoma in January of 2018. He underwent a hemicolectomy with colostomy placement. He completed 8 of 12 cycles of FOLFOX chemotherapy. He progressed through treatment with a CEA that increased to a high of 4600. He had a fistula from surgery, but throughout treatment, it continued to drain and bleed throughout chemotherapy. In early August, he went to [facility] emergency room for abdominal distention and bloating. CT of the abdomen showed dramatic progression of malignancy compared to the imaging from April of 2018. He was seen in the office by Dr. Modi on September 12 and was referred to hospice. Over the last several days, he has had progressive shortness of breath and weakness. He presented to the emergency room and found to have a hemoglobin of 3.8. He was admitted and has been transfused 4 units. We were asked to see the patient regarding his disease. PAST MEDICAL HISTORY: Stage IV adenocarcinoma of the colon. PAST SURGICAL HISTORY: 1. Colectomy in January 2018. 2. MediPort placement. 3. Knee surgery. 4. Appendectomy. ALLERGIES: NO KNOWN DRUG ALLERGIES. HOME MEDICATIONS: Tylenol No. 3 p.r.n. pain. FAMILY HISTORY: No history of colon cancer. SOCIAL HISTORY: , has 3 children. Lives with his spouse. No alcohol, tobacco, or illicit drug use. REVIEW OF SYSTEMS: CONSTITUTIONAL: No fever, chills, or night sweats. EYES: No blurred or double vision. ENT: No pain, hoarseness, sore throat, or dysphagia. CV: No chest pain. Positive for palpitations. RESPIRATORY: Positive for shortness of breath and dyspnea on exertion. GI: No nausea, vomiting, diarrhea, or constipation. Positive for abdominal pain and bloating. : No dysuria or hematuria. MUSCULOSKELETAL: No joint or back pain. SKIN: No rash or pruritus. HEMATOLOGIC: Positive for bleeding from fistula. NEUROLOGIC: Positive for weakness. No headache, numbness, tingling, or seizure. PHYSICAL EXAMINATION: VITAL SIGNS: Temperature is 97.9, pulse is 96, respiratory rate 16, and blood pressure 100/64. GENERAL: This is a cachectic male, in no acute distress. HEENT: Normocephalic and atraumatic. Pupils equal and reactive to light. NECK: Supple. CV: Regular rate and rhythm. LUNGS: Clear. ABDOMEN: Distended and tender. Bowel sounds are positive. EXTREMITIES: He has 2+ bilateral lower extremity edema. SKIN: No rash. HEMATOLOGIC: No petechiae or purpura. NEUROLOGIC: Nonfocal. PSYCH: The patient is alert, oriented, and appropriate. PERTINENT LABORATORY DATA AND X-RAYS: Current WBCs 14.9, hemoglobin 7.0, hematocrit 21.8, and platelet count 254,000. He has 70% neutrophils, 17% lymphocytes, 12% monocytes. PT is 16.2, INR is 1.3, PTT is 33.8. Sodium is 133, potassium 3.7, chloride 104, CO2 is 22, BUN is 24, creatinine 0.7, serum os is 289, calcium 7.7, magnesium is 1.8, total bilirubin is 1.5, AST is 165, ALT is 33, alkaline phosphatase is 671. Serum total protein 6.2, albumin 2.1, globulin 4.1. ASSESSMENT: Stage IV adenocarcinoma of the colon with recent progression. DISCUSSION: Case was discussed with Dr. Modi. The patient has stage IV disease and has progressed through standard treatment. There is minimal chance of improvement with further chemo. Hospice was discussed with both the patient and daughter at bedside and they agree to speak with hospice. Case Management was informed, would recommend transfusion to keep hemoglobin greater than 7. Continue gentle diuresis for ascites and edema. Thank you for the consult on this unfortunate gentleman. Job ID: [id number]
--- NOTE | 2018-09-23 21:04 | CON ---
DATE OF CONSULTATION: 09/23/2018 REASON FOR CONSULTATION: Anemia and abdominal distention with end-stage metastatic colon cancer. HISTORY OF PRESENT ILLNESS: Franco Malave is an unfortunate 58-year-old gentleman, previously seen by my GI colleague, Dr. Dung Grier. Dr. Grier saw him in January 2018 in evaluation for abdominal pain and change in bowel habits. He was found to have a near obstructing transverse colon mass and this came back as adenocarcinoma. This was metastatic to the liver, unresectable. The patient did undergo partial colon resection. Unfortunately, he had complications of colovesical, now colocutaneous fistula. He was on chemotherapy for several months, but this was stopped last June due to progression of the disease despite chemotherapy. The patient has had issues with drainage from his colocutaneous fistula. Every few days, he will have stool and as well as a bit of blood draining from the fistula. When this happens, he will have a little bit of blood in his normal stool per rectum and then it will stop for a few more days. He has also had some progressive abdominal distention over this time. He has been on Lasix. The abdominal distention does cause him to feel a bit short of breath. Upon admission here, he has had discussions with the oncology team and they have elected to pursue palliative/hospice care only. Specifically, the patient and his daughter are asking me about palliation for his abdominal distention and the resulting shortness of breath he experiences. REVIEW OF SYSTEMS: Full review of systems including constitutional, head, eyes, ears, nose, throat, GI, , cardiovascular, respiratory, musculoskeletal, and neurologic systems is negative except as noted in the HPI. PAST MEDICAL HISTORY: Invasive adenocarcinoma of the colon with metastasis to liver, status post chemotherapy and surgery. Last chemotherapy in June 2018, laparoscopic colon resection, right knee surgery, appendectomy, MediPort placement. SOCIAL HISTORY: The patient lives at home with family. No tobacco, alcohol, or drug use. FAMILY HISTORY: Negative for malignancy. ALLERGIES: NO KNOWN DRUG ALLERGIES. OUTPATIENT MEDICATIONS: Lasix. PHYSICAL EXAMINATION: VITAL SIGNS: Temperature 97.9, blood pressure 100/64, pulse is 96, and 98% oxygen saturation on 2 L nasal cannula. GENERAL: Chronically ill 58-year-old gentleman sitting up in the chair comfortably in no acute distress. SKIN: He is pale, no jaundice. 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 EYES: No scleral icterus. ENT: Mucous membranes moist. No oral lesions. LYMPH: No submandibular or supraclavicular lymphadenopathy. Thyroid nontender to palpation. HEART: Regular rate and rhythm. LUNGS: Clear to auscultation bilaterally. ABDOMEN: Distended, dull to percussion throughout. No fluid wave. Mild tenderness to palpation, but no guarding or rebound tenderness. EXTREMITIES: 1 to 2+ bilateral lower extremity edema. LABORATORY STUDIES: WBC 14.9, hemoglobin 7.0, platelets 254. INR 1.3. Sodium 133, potassium 3.7, BUN 24, creatinine 0.70, total bilirubin 1.5, alkaline phosphatase 671, AST 165, ALT 33, ferritin 435.7. ASSESSMENT/PLAN: 1. Metastatic colon cancer, end-stage. I agree that overall his prognosis is extremely poor and that hospice/palliative care is the best option for him going forward. Those arrangements are currently being made. 2. Anemia. This is secondary to ongoing blood loss from his colocutaneous fistula. I do not see any role for any endoscopic investigation or any possible endoscopic intervention that is likely to make a difference here. Likewise, I do not think any surgical intervention is going to make a difference. It would be reasonable to give him transfusion as needed from a palliative care standpoint. 3. Abdominal distention. On my exam, I feel it is likely that the patient has developed malignant ascites. It is unclear how much his abdominal distention is due to fluid. He evidently had fairly recent CT imaging at [facility], but I do not have that available to me here. From a palliative standpoint, I think it would be reasonable to send him to Interventional Radiology for attempted ultrasound-guided paracentesis, if indeed he does have a significant amount of fluid. I would not recommend repeating this over and over again. Continue the diuretics as well. GI will sign off, but please call back at anytime with questions or concerns. Job ID: [id number]
[2018-09-24] MEDS: Piperacillin/Tazobactam 3.375 GM in Sodium Chloride 0.9% 100 ML IVPB SCH (06:26)
[2018-09-24 10:24] LABS: #Basophils 0.1 thou/uL (0.0-0.2); #Eosinphils 0.1 thou/uL (0.0-0.7); #Lymphocytes 1.9 thou/uL (1.20-3.40); #Monocytes 1.5 thou/uL (0.11-0.59); #Neutrophils 8.5 thou/uL (1.40-6.50); %Basophils 0.5 % (0.0-1.0); %Eosinophils 0.8 % (0.0-10.0); %Lymphocytes 15.5 % (21.0-51.0); %Monocytes 12.1 % (0.0-10.0); %Neutrophils 71.1 % (42.0-75.0); Hemoglobin 7.8 g/dL (14.0-18.0); Mean Corpuscular Hemoglobin 28.5 pg (27.0-31.0); Mean Corpuscular Volume 89.2 fL (78.0-98.0); Mean Platelet Volume 8.8 fL (7.4-10.4); Platelet Count 249 thou/uL (130-400); RBC Distribution Width 15.8 % (11.5-14.5); Red Blood Cell (RBC) Count 2.73 mill/uL (4.70-6.10)
[2018-09-24 10:49] LABS: ALT (SGPT) 38 U/L (8-55); AST (SGOT) 147 U/L (5-34); Albumin 2.1 g/dL (3.5-5.0); Alkaline Phosphatase 731 U/L (40-150); Anion Gap 12 mmol/L (10-20); BUN (Urea Nitrogen) 21 mg/dL (8.4-25.7); Bilirubin, Total 2.4 mg/dL (0.2-1.2); Calc. Creatinine Clearance 99 mL/min (70-130); Calcium 7.8 mg/dL (7.8-10.44); Carbon Dioxide 21 mmol/L (22-29); Chloride 101 mmol/L (98-107); Estimated GFR-MDRD Greater than 90; Globulin 3.9 g/dL (2.4-3.5); Glucose 109 mg/dL (70-105); Potassium 3.4 mmol/L (3.5-5.1); Sodium 131 mmol/L (136-145)
--- NOTE | 2018-09-24 10:57 | DIS ---
DATE OF ADMISSION: 09/22/2018 DATE OF DISCHARGE: 09/24/2018 PRIMARY CARE PHYSICIAN: Rui Call admission. DISCHARGE DISPOSITION: Home. PRIMARY DISCHARGE DIAGNOSES: 1. Severe symptomatic anemia, status post 4 units of blood transfusion. 2. Anemia due to chronic blood loss and chronic disease. 3. Leukocytosis. 4. Hyponatremia. 5. Wound leakage. 6. Ascites. SECONDARY DISCHARGE DIAGNOSES: 1. Moderate protein-calorie malnutrition. 2. Metastatic colon cancer with metastasis to liver. 3. Chronic disease anemia. 4. Physical deconditioning. PRIMARY PROCEDURE/OPERATION: None. RADIOLOGICAL INVESTIGATION: Abdomen ultrasound showed ascites. SIGNIFICANT LABORATORY DATA: WBC 14.9, hemoglobin 7.0, platelets 254. INR 1.3. Sodium 133, potassium 3.7, BUN 24, creatinine 0.70, calcium 7.7. Ferritin 435.1. AST 165, ALT 33, alkaline phosphatase 671, albumin 2.1. TSH 3.54. Cortisol 17.1. Urinalysis, normal. Blood culture, negative. Urine culture, negative. DISCHARGE MEDICATIONS: 1. Cipro 250 mg p.o. b.i.d. for 5 days. 2. Flagyl 250 mg t.i.d. for 5 days. 3. Ferrous sulfate 325 mg p.o. daily. 4. Multivitamin one tablet p.o. daily. 5. Lasix 20 mg daily. 6. Protonix 40 mg p.o. daily. 7. Ambien 10 mg p.o. at bedtime p.r.n. CONTRAINDICATION: None. CODE STATUS: Full code. INPATIENT RESOURCE TECHNICIAN: Oncology was consulted while in the hospital. Dr. Topete was consulted while in the hospital. Dr. Luna saw this patient while in hospital TEST RESULTS PENDING ON DISCHARGE: None. ALLERGIES: NO KNOWN DRUG ALLERGIES. DISCHARGE PLAN: Posthospital, the patient will follow up with primary care physician in 1 or 2 weeks. The patient will follow up with the Hospice Team at home for outpatient hospice at home. HOSPITAL COURSE: A 58-year-old male, who has metastatic colon cancer, who has been tried with chemotherapy without any significant improvement. He is off chemotherapy for a couple of months. He was having anemia, but lately, he was feeling more and more shortness of breath, weak, fatigue, tired, and that is why he made appointment with primary care physician and he was found with severe anemia. He was sent to emergency room. In the emergency room, his hemoglobin was 3.8. He was given total of 4 units of blood transfusion. He also had leukocytosis, and he was also having leakage of abdominal wound, and that is why we treated empirically with Zosyn while in hospital, and on discharge, we changed to Cipro and Flagyl. This patient has metastatic terminal end-stage colon cancer and that is why we consulted Oncology and they recommended hospice at home. They do not have any treatment option for him. General Surgery was consulted for wound and they also agreed with conservative treatment. Gastroenterology was consulted for severe anemia and they also recommended to monitor conservatively and periodic as needed transfusion. With the help of telephonic nurse case manager, we arranged home hospice at home. The patient's family member will talk to Hospice Team at home after discharge. This patient's long-term prognosis is extremely poor. While in hospital, he remained full code, but code status and goal of care will need to be addressed with Hospice Team. His hyponatremia improved with hydration. He does have lower extremity edema from hypoalbuminemia and that is why we provided Lasix for palliation. While in hospital, we also tried to do paracentesis, but his fluid was not significant enough to drain and that is why we have not done paracentesis. This patient might have underlying malignant ascites. The patient is seen and examined at bedside today. Plan of care discussed with the patient and family member. PHYSICAL EXAMINATION: VITAL SIGNS: Currently, temperature 98.3, pulse 95, respiratory rate 16, saturation 96%, blood pressure 93/52. Weight 134 pounds. GENERAL: The patient is currently alert and awake, in no obvious acute distress. HEENT: Head, normocephalic and atraumatic. Eyes; pupils are round, reactive to light. Extraocular muscle intact. ENT, oropharynx within normal limit. Moist mucous membrane. No oral lesion. No pharyngeal erythema. No exudate. NECK: Supple. No JVD. No thyromegaly. No carotid bruit. No jugular venous distention. LUNGS: Clear to auscultation without any rhonchi or rales. CARDIAC: S1 and S2, regular without any significant murmur. ABDOMEN: Soft and benign without any tenderness. Ascites noted. Wound noted with a dressing. EXTREMITIES: Bilateral lower extremity pitting edema. NEUROLOGIC: Nonfocal examination. All new medication prescription sent to his pharmacy. All review of systems reviewed with him and negative. Job ID: [id number]
[2018-09-24 11:53] VITALS: BP 98/67; TEMP 98
--- NOTE | 2018-09-24 20:53 | EKG ---
Test Reason : Blood Pressure : / mmHG Vent. Rate : 094 BPM Atrial Rate : 094 BPM P-R Int : 142 ms QRS Dur : 084 ms QT Int : 360 ms P-R-T Axes : 066 085 -31 degrees QTc Int : 450 ms Sinus rhythm with marked sinus arrhythmia Cannot rule out Inferior infarct , age undetermined T wave abnormality, consider anterolateral ischemia Abnormal ECG Confirmed by JANUSZ LOUIE, SAMANTHA Laura ([id number]), content editor ALEKSANDRA AMOR ([id number]) on 09/24/2018 8:52:44 PM Referred By: Confirmed By:SAMANTHA BOUDREAUX MD
== END 2018-09-24 12:14 | disposition hospice, home (50) | DRG 812 ==
LOC: ERS 14:02 → ERHOLD 17:00 → SURG B 19:10
PROVIDERS: ADMIT Internal Medicine; ATTEND Internal Medicine
PROC: 30233N1 Transfusion of Nonautologous Red Blood Cells into Peripheral Vein, Percutaneous Approach (ICD-10-PCS; principal; 2018-09-22)
DX: D50.0 Iron deficiency anemia secondary to blood loss (chronic) (principal); C78.7 Secondary malignant neoplasm of liver and intrahepatic bile duct; E87.1 Hypo-osmolality and hyponatremia; R18.0 Malignant ascites; E44.0 Moderate protein-calorie malnutrition; K63.2 Fistula of intestine; D63.0 Anemia in neoplastic disease; Z68.21 Body mass index [BMI] 21.0-21.9, adult; E88.09 Other disorders of plasma-protein metabolism, not elsewhere classified; Z85.038 Personal history of other malignant neoplasm of large intestine; Z92.21 Personal history of antineoplastic chemotherapy; Z90.49 Acquired absence of other specified parts of digestive tract; Z79.899 Other long term (current) drug therapy
CPT/HCPCS: 36415; 36430; 76705; 80048; 80053; 81001; 82533; 82570; 82728; 83735; 83930; 83935; 84300; 84443; 85025; 85060; 85610; 85730; 86850; 86900; 86901; 87040; 87086; 93005; 94760; J1940; J2543; J7050; P9016; S0028

== ENCOUNTER 2018-09-27 08:23 | Emergency (ER) | payer MEDICAID ==
[2018-09-27 10:07] LABS: #Basophils 0.1 thou/uL (0.0-0.2); #Eosinphils 0.1 thou/uL (0.0-0.7); #Lymphocytes 2.2 thou/uL (1.20-3.40); #Monocytes 1.7 thou/uL (0.11-0.59); #Neutrophils 9.9 thou/uL (1.40-6.50); %Basophils 0.4 % (0.0-1.0); %Eosinophils 0.5 % (0.0-10.0); %Lymphocytes 15.7 % (21.0-51.0); %Neutrophils 71.4 % (42.0-75.0); Mean Corpuscular Volume 90.3 fL (78.0-98.0); Mean Platelet Volume 8.2 fL (7.4-10.4); Platelet Count 244 thou/uL (130-400); RBC Distribution Width 16.3 % (11.5-14.5); Red Blood Cell (RBC) Count 2.86 mill/uL (4.70-6.10); White Blood Cell (WBC) Count 13.8 thou/uL (4.8-10.8)
[2018-09-27 10:38] LABS: ALT (SGPT) 45 U/L (8-55); AST (SGOT) 230 U/L (5-34); Albumin 2.1 g/dL (3.5-5.0); Alkaline Phosphatase 912 U/L (40-150); Anion Gap 11 mmol/L (10-20); BUN (Urea Nitrogen) 18 mg/dL (8.4-25.7); Bilirubin, Total 3.3 mg/dL (0.2-1.2); Calc. Creatinine Clearance 0 mL/min (70-130); Calcium 8.1 mg/dL (7.8-10.44); Carbon Dioxide 24 mmol/L (22-29); Chloride 100 mmol/L (98-107); Estimated GFR-MDRD Greater than 90; Globulin 4.2 g/dL (2.4-3.5); Glucose 81 mg/dL (70-105); Lipase 13 U/L (8-78); Potassium 3.6 mmol/L (3.5-5.1); Protein, Total 6.3 g/dL (6.0-8.3); Sodium 131 mmol/L (136-145)
[2018-09-27 10:59] LABS: MDiff Complete? YES; Polychromasia SLIGHT = 2-3 cells (100X) (0-2/hpf); Target Cells SLIGHT = 2-5 cells (100X) (0-1/hpf)
[2018-09-27 11:00] LABS: INR-International Normal Ratio 1.3; PTT 29.3 SEC (22.9-36.1); Prothrombin Time 16.3 SEC (12.0-14.7)
[2018-09-27] MEDS ORDERED: ISOVUE-370 76%-LOCM 1 ML ONE (13:18)
[2018-09-27] MEDS ORDERED: Iopamidol 370 76% 50 ML VIAL FS ONE (13:18)
--- NOTE | 2018-09-27 13:38 | CT ---
CT ABDOMEN AND PELVIS PERFORMED WITH CONTRAST ENHANCEMENT: HISTORY: Abdominal pain and distention associated with midline abdominal wound. Has a history of colon cancer . Last chemotherapy in June 2018. Open wound since surgery in February and surgical history of appe ndectomy. COMPARISON: CT examination from 05/05/2018. FINDINGS: ABDOMEN: The lung bases are clear of an confluent infiltrative process. There is some linear atelec tatic change seen in the right base. No pulmonary nodules are identified. No pleural effusion. Extensive hepatic metastatic disease is again demonstrated. Overall, the number of these lesions has increased. The spleen is within normal limits in size. The liver measures 22.3 cm in length. The pancreas region is unremarkable, and the gallbladder is contracted. Small densities seen in the alek on of the gallbladder neck are potentially tiny stones. Right and left adrenal glands and right and left kidneys are normal in appearance. No significant pe riaortic adenopathy. There is moderate ascites present. In reviewing an ultrasound done on 09/23/19, the amount of ascites is felt to have increased since that examination. There are edematous appe aring changes of the transverse colon and hepatic flexure region. There are postoperative changes re lated to the transverse colon region with the mid transverse colon again noted to be directly adheren t to the anterior abdominal wall. PELVIS: Moderate ascites is noted. No significant adenopathy or mass. Review of osseous structures shows no lytic or blastic bony change. IMPRESSION: 1. Marked hepatomegaly with an increase in the number of the metastatic liver lesions, as compared t o the prior examination. 2. Moderate ascites. The degree of ascites appears increased as compared to an ultrasound study of 09/23/2018. 3. Postoperative changes of the transverse colon. There is also wall thickening to the transverse c olon and hepatic flexure region, some of which could be on the basis of the ascites, but colitis is n ot excluded. No free air is demonstrated. POS: [facility]
== END 2018-09-27 13:41 | disposition home or self-care (01) ==
LOC: ERS 08:23
DX: R18.8 Other ascites (principal); C18.9 Malignant neoplasm of colon, unspecified
CPT/HCPCS: 36415; 74177; 80053; 82140; 83690; 85025; 85610; 85730; Q9966; Q9967

== ENCOUNTER 2018-10-14 12:03 | Observation (INO) | payer MEDICAID, SELFPAY ==
[2018-10-14 13:20] LABS: Mean Corpuscular HGB CONC 29.8 g/dL (32.0-36.0); Mean Corpuscular Hemoglobin 27.4 pg (27.0-31.0); Red Blood Cell (RBC) Count 2.18 mill/uL (4.70-6.10); White Blood Cell (WBC) Count 15.5 thou/uL (4.8-10.8)
[2018-10-14 13:21] LABS: Platelet Count 366 thou/uL (130-400); RBC Distribution Width 24.7 % (11.5-14.5)
[2018-10-14 13:36] LABS: INR-International Normal Ratio 1.3; PTT 34.2 SEC (22.9-36.1); Prothrombin Time 16.6 SEC (12.0-14.7)
[2018-10-14 13:41] LABS: ALT (SGPT) 43 U/L (8-55); AST (SGOT) 199 U/L (5-34); Albumin 1.8 g/dL (3.5-5.0); Alkaline Phosphatase 1167 U/L (40-150); Anion Gap 15 mmol/L (10-20); BUN (Urea Nitrogen) 19 mg/dL (8.4-25.7); Bilirubin, Total 5.3 mg/dL (0.2-1.2); Calc. Creatinine Clearance 0 mL/min (70-130); Calcium 8.1 mg/dL (7.8-10.44); Carbon Dioxide 18 mmol/L (22-29); Chloride 99 mmol/L (98-107); Estimated GFR-MDRD Greater than 90; Glucose 82 mg/dL (70-105); Lipase 25 U/L (8-78); Potassium 4.5 mmol/L (3.5-5.1); Protein, Total 5.8 g/dL (6.0-8.3); Sodium 127 mmol/L (136-145)
[2018-10-14 13:42] LABS: Anisocytosis SLIGHT = 6-15 cells (100X) (0-5/hpf); Band 2 % (5-11); Hypochromia SLIGHT = 6-15 cells (100X) (0-5/hpf); Lymphocytes 4 % (21-51); MDiff Complete? YES; Metamyelocyte 1 % (0-0); Monocytes 4 % (0-10); Neutrophil 89 % (42-75); Platelet Morphology Comment Appears Adequate; Polychromasia SLIGHT = 2-3 cells (100X) (0-2/hpf); Target Cells SLIGHT = 2-5 cells (100X) (0-1/hpf)
[2018-10-14] MEDS ORDERED: Ondansetron PF 4 MG/2 ML Vial IVP PRN (17:33)
[2018-10-14] MEDS ORDERED: Acetaminophen 325 MG TAB PO PRN (17:33)
[2018-10-14] MEDS ORDERED: Ondansetron ODT 4 MG TAB PO PRN (17:33)
[2018-10-14] MEDS ORDERED: HYDROcodone/Acetaminophen 5/325 mg Tablet PO PRN (17:33)
[2018-10-14 17:40] VITALS: BMI 21.1
[2018-10-14] MEDS: Sodium Chloride 0.9% 1,000 ML IV SCH (20:00)
[2018-10-14 20:11] LABS: Lactic Acid 10.1 mmol/L (0.5-2.2)
[2018-10-14] MEDS ORDERED: Albumin 25% 25 GM/100 ML BOT IVPB SCH (20:45)
[2018-10-14] MEDS ORDERED: Prevnar 13-Val Conj/PF 0.5 ML SYRINGE IM ONE (21:00)
--- NOTE | 2018-10-14 21:43 | HP ---
PRIMARY CARE PHYSICIAN: He currently does not have one. CHIEF COMPLAINT: Bleeding and feeling weak. HISTORY OF PRESENT ILLNESS: Mr. Hernandez Malave is a pleasant 58-year-old gentleman, who has a history of stage IV adenocarcinoma of the colon. He has been on hospice. 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 He notes that he typically has some bleeding from the fistula on a regular basis, but every now and then, there is generally some stool that comes out. However, yesterday and last night, he noted increasing blood with blood clots from the fistula. He also noted increasing abdominal bloating and as a result of the abdominal bloating, he was having difficulty with breathing and feeling comfortable. As a result, he was asked to come to the hospital. He asked his family to revoke hospice and when he was evaluated he was found to have a hemoglobin of around 6 and significant amount of ascites and is being placed in the hospital for palliative care with regard to the anemia and abdominal bloating. The patient denies any fevers, no chills, no nausea, no vomiting. He has a fairly good appetite. He has noted increasing weakness and lower extremity edema, but otherwise no other complaints. REVIEW OF SYSTEMS: All systems were reviewed and are negative except for that mentioned in the history of present illness. PAST MEDICAL HISTORY: Significant for adenocarcinoma of the colon, stage IV with a colocutaneous fistula. PAST SURGICAL HISTORY: 1. He has had a laparoscopic colon resection. 2. Right knee surgery. 3. Appendectomy. 4. MediPort placed. ALLERGIES: NO KNOWN DRUG ALLERGIES. SOCIAL HISTORY: He is . He is a nonsmoker and nondrinker. No drug use. He lives at home with family and when asked about code status, his daughter says that he wanted to be a full code while he is in the hospital. FAMILY HISTORY: No history of any heritable diseases. CURRENT MEDICATIONS: Include Lasix just as needed. PHYSICAL EXAMINATION: GENERAL: He is alert and oriented. He appears to be in some distress due to discomfort from the significant abdominal bloating. He appears cachectic and chronically ill in appearance. VITAL SIGNS: The blood pressure was 89/57, heart rate 99, respiratory rate of 20, temperature is 97.8. HEENT: His pupils are equal, round, and reactive. Extraocular muscles are intact. His sclerae are slightly icteric. Throat, there is no erythema, no exudate. NECK: No adenopathy, no bruits. LUNGS: Clear to auscultation bilaterally. There is no wheezing, no rales, no rhonchi. CARDIOVASCULAR: He has a normal S1, S2. I did not appreciate an S3 or S4. No murmurs, clicks, or rubs. ABDOMEN: Distended, however, it is nontender. He has the colocutaneous fistula with some blood clot coming from the fistula. Bowel sounds are present. EXTREMITIES: On his extremities, he has massive edema bilaterally in both lower extremities. No calf tenderness. However, no warmth. NEUROLOGIC: His cranial nerves 2 through 12 are grossly intact. Muscle strength is 5/5 in both his upper and lower extremities. SKIN AND INTEGUMENT: There is no significant skin change other than some bronzy discoloration at this time. LABORATORY DATA: His sodium is 127, potassium 4.5, chloride is 99, CO2 is 18, BUN of 19, creatinine 0.67, glucose is 82, lactic acid 2.8, alkaline phosphatase is 1167. Hemoglobin 6, hematocrit 20, white blood cell count 15.5, and platelet count is 366. ASSESSMENT: This is a pleasant 58-year-old gentleman, who presents to the emergency room with generalized weakness, anemia, and increased abdominal girth. 1. For the [id number] blood loss anemia due to colon cancer and gastrointestinal bleed, we will transfuse 1-2 units of packed red blood cells. 2. For ascites, this is malignant ascites. We will get a referral to Interventional Radiology and see if he is a candidate for therapeutic paracentesis. 3. Advanced adenocarcinoma. We will manage his symptoms while in hospital and hopefully he can be transferred back home tomorrow after his transfusion and potential therapeutic paracentesis. Job ID: [id number]
[2018-10-14 21:55] LABS: Hemoglobin 6.9 g/dL (14.0-18.0); Mean Corpuscular HGB CONC 29.9 g/dL (32.0-36.0); Mean Corpuscular Hemoglobin 28.2 pg (27.0-31.0); Mean Corpuscular Volume 94.2 fL (78.0-98.0); Platelet Count 282 thou/uL (130-400); RBC Distribution Width 17.6 % (11.5-14.5); Red Blood Cell (RBC) Count 2.46 mill/uL (4.70-6.10); White Blood Cell (WBC) Count 16.7 thou/uL (4.8-10.8)
[2018-10-14 21:56] LABS: Anisocytosis SLIGHT = 6-15 cells (100X) (0-5/hpf); Band 11 % (5-11); Hypochromia SLIGHT = 6-15 cells (100X) (0-5/hpf); Lymphocytes 4 % (21-51); MDiff Complete? YES; Monocytes 7 % (0-10); Neutrophil 78 % (42-75); Nucleated RBC 2 % (0); Polychromasia SLIGHT = 2-3 cells (100X) (0-2/hpf)
[2018-10-15 07:26] LABS: #Eosinphils 0.1 thou/uL (0.0-0.7); #Lymphocytes 2.8 thou/uL (1.20-3.40); #Monocytes 1.4 thou/uL (0.11-0.59); #Neutrophils 13.9 thou/uL (1.40-6.50); %Basophils 0.3 % (0.0-1.0); %Eosinophils 0.4 % (0.0-10.0); %Lymphocytes 15.2 % (21.0-51.0); %Monocytes 7.9 % (0.0-10.0); %Neutrophils 76.3 % (42.0-75.0); Hemoglobin 6.8 g/dL (14.0-18.0); Mean Corpuscular HGB CONC 31.3 g/dL (32.0-36.0); Mean Corpuscular Volume 92.7 fL (78.0-98.0); Mean Platelet Volume 8.7 fL (7.4-10.4); Platelet Count 205 thou/uL (130-400); Red Blood Cell (RBC) Count 2.35 mill/uL (4.70-6.10); White Blood Cell (WBC) Count 18.2 thou/uL (4.8-10.8)
[2018-10-15] MEDS ORDERED: Lidocaine 1% PF 5 ML VIAL ONE (09:50)
[2018-10-15] MEDS ORDERED: Sodium Bicarbonate 2.5 MEQ/5 ML VIAL ONE (09:50)
[2018-10-15] MEDS ORDERED: Albumin 25% 100 ML ONE (11:51)
--- NOTE | 2018-10-15 12:56 | ULT ---
ULTRASOUND-GUIDED PARACENTESIS: CLINICAL INDICATION: Malignant ascites, 58-year-old male. PROCEDURE: After informed consent had been obtained, the patient was escorted to the ultrasound suite and placed in a supine position. The abdomen was imaged which revealed adequate ascites for the procedure. Th e skin of the abdomen was then prepped and draped in the standard sterile fashion and the skin surfac e, subcutaneous tissues, and peritoneal lining of the abdomen were anesthetized with 1% Lidocaine buf fered with sodium bicarbonate. A right lower quadrant approach was selected. A small skin incision was made at the site of topical anesthesia. Subsequently, under real-time ultrasound guidance a Cloudscaling catheter was advanced through the incision site into the peritoneal cavity. Ascites was present at the catheter hub. The catheter was then secured to vacuum sealed sterile containers, via sterile tub ing and subsequently 4 L of clear yellow ascites was drained from the patient. The patient was then removed from the patient. The patient tolerated the procedure well without evidence of complication. Postprocedure imaging revealed no complication and interval reduction in volume of ascites. The pa tient was monitored by a radiology nurse and was stable in condition. IMPRESSION: Technically successful ultrasound-guided paracentesis, as above. POS: [facility]
[2018-10-15] MEDS: Sodium Chloride 0.9% 1,000 ML IV SCH (13:43)
--- NOTE | 2018-10-15 14:12 | PDOC.PN ---
- Subjective Encounter Start Date: 10/15/18 Encounter Start Time: 14:11 Mr. Ng was seen today in follow-up of GI bleed and terminal colon cancer. He says he feel better today. He has less abdominal pain, and he is able to more flat and rest. - Objective Resuscitation Status - Order Detail: 10/14/18 16:24 Resuscitation Status Routine Resuscitation Status: FULL: Full Resuscitation MAR Reviewed: Yes Vital Signs & Weight: Vital Signs (12 hours) Temp Pulse Resp BP BP BP Pulse Ox 10/15/18 12:00 97.4 F L 82 18 93/59 L 100 10/15/18 11:43 97.4 F L 84 18 93/59 L 100 10/15/18 09:30 91/52 L 91/52 L 10/15/18 08:00 97.5 F L 94 16 88/55 L 88/55 L 97 10/15/18 05:00 97.6 F 90 18 88/56 L 98 Weight Weight 135 lb I&O: 10/14/18 10/15/18 10/16/18 06:59 06:59 06:59 Intake Total 1100 Output Total 600 Balance 500 Result Diagrams: 10/15/18 07:07 10/14/18 12:45 Additional Labs: Accuchecks 10/14/18 20:32 POC Glucose 66 L Phys Exam - Physical Examination HEENT: PERRLA Respiratory: no wheezing, no rales, no rhonchi, clear to auscultation bilateral Cardiovascular: RRR, no significant murmur, no rub Gastrointestinal: positive bowel sounds + distended Musculoskeletal: pulses present, edema present Dx/Plan (1) Acute on chronic blood loss anemia Code(s): D60.0 - CHRONIC ACQUIRED PURE RED CELL APLASIA Status: Acute (2) Metastatic colon cancer to liver Code(s): C18.9 - MALIGNANT NEOPLASM OF COLON, UNSPECIFIED; C78.7 - SECONDARY MALIG NEOPLASM OF LIVER AND INTRAHEPATIC BILE DUCT Status: Chronic (3) Protein-calorie malnutrition, moderate Code(s): E44.0 - MODERATE PROTEIN-CALORIE MALNUTRITION Status: Chronic (4) Ascites, malignant Code(s): R18.0 - MALIGNANT ASCITES Status: Chronic - Plan * He has improved symptomatically, mostly as a result of the paracentensis * He is stable for discharge home.
[2018-10-15 17:50] VITALS: BP 92/55; TEMP 97.5
--- NOTE | 2018-10-16 03:29 | DIS ---
DATE OF ADMISSION: 10/14/2018 DATE OF DISCHARGE: 10/15/2018 DISCHARGE DISPOSITION: Home. DISCHARGE DIAGNOSES: 1. Nkoon-jl-bkiczsd blood loss anemia. 2. Gastrointestinal bleed. 3. Metastatic adenocarcinoma of the colon. 4. Malignant effusion. DISCHARGE MEDICATIONS: 1. Ativan 0.5 q.6h as needed. 2. Ambien 10 mg at bedtime. PROCEDURES DONE DURING ADMISSION: The patient had a therapeutic paracentesis with removal of 4 L of fluid. CODE STATUS: Full code. ALLERGIES: NO KNOWN DRUG ALLERGIES. HOSPITAL COURSE: Mr. Hernandez Malave is a pleasant 58-year-old gentleman, who presented to the emergency room after he was noticing increased bleeding from the colocutaneous fistula. He was also extremely weak and was noting increasing abdominal girth. He was placed in observation, had 2 units of packed RBCs transfused for a hemoglobin of 6. This only raised his hemoglobin up to 6.8. It was noted that he had quite a bit of bleeding from the colocutaneous fistula. He also had the removal of 4 L of ascitic fluid. He had some improvement with this and is being discharged home. I did explain to the patient and daughter that once again these are just temporizing measures and that the fluid would build up once again, as well as the anemia. They voiced understanding and the daughter states that she is going to call the hospice agency when they get home and resume hospice tomorrow. Job ID: [id number]
== END 2018-10-15 15:45 | disposition home or self-care (01) ==
LOC: ERS 12:03 → INTOOBSV 15:40 → T4-B 15:40
PROVIDERS: ADMIT Internal Medicine; ATTEND Internal Medicine
DX: C18.9 Malignant neoplasm of colon, unspecified (principal); D62 Acute posthemorrhagic anemia; K63.2 Fistula of intestine; R18.0 Malignant ascites; C78.7 Secondary malignant neoplasm of liver and intrahepatic bile duct; E44.0 Moderate protein-calorie malnutrition; Z68.21 Body mass index [BMI] 21.0-21.9, adult; Z79.899 Other long term (current) drug therapy; Z90.49 Acquired absence of other specified parts of digestive tract
CPT/HCPCS: 36415; 36416; 36430; 49083; 80053; 83605; 83690; 85025; 85610; 85730; 86850; 86900; 86901; 90471; 90670; 93005; 96365; G0009; G0378; J2001; P9016; P9047